=== PATIENT | male | born 1990 | race Caucasian/White ===

== ENCOUNTER 2016-06-28 17:15 | Inpatient (IN) | payer BC ==
[~2016-06-28] VITALS: Ht 188 cm; Wt 155.7 kg
[~2016-06-28 17:15] MED LIST: CPR500HP PO; IBUP-1428 PO
[2016-06-28] MEDS ORDERED: SODIUM CHLORIDE 0.9% 1000ML 500 ML IV STA (19:02)
[2016-06-28] MEDS ORDERED: SODIUM CHLORIDE 0.9% 1000ML 1,000 ML IV STA (19:02)
--- NOTE | 2016-06-28 19:09 | EMERGENCY ROOM VISIT NOTE ---
History Report prepared by Bi: Dread Gibson Under the Supervision of: Dr. Eric Ayala M.D. First contact with patient: 18:56 Chief Complaint: ABDOMINAL PAIN Stated Complaint: SEVERE STOMACH PAIN Nursing Triage Summary: c/o lower abd pain since Monday. denies n/v/d. Seen by PCP today. Colonoscopy Monday and told he has IBS History of Present Illness The patient is a 25 year old male who presents to the Emergency Room with complaints of persistent lower abdominal pain beginning 3 days ago. He rates his pain a 7/10 in severity and notes that movement and urination worsens his pain. He may have had a fever, but has not checked his temperature, and he denies having any nausea. The patient reports having a colonoscopy about 1 week ago and was diagnosed with IBS. He was seen by his PCP today who sent him over to the ER. He has a history of diverticulitis, and takes reflux medication. He denies having any past abdominal surgeries. Source of History: patient Onset: 3 days ago Position: abdomen (lower) Symptom Intensity: 7/10 in severity Quality: other (abdominal pain) Timing: other (persistent) Modifying Factors (Worsening): movement, urination Associated Symptoms: + fevers (subjective), No nausea Review of Systems See HPI for pertinent positives & negatives. A total of 10 systems reviewed and were otherwise negative. Past Medical & Surgical Medical Problems: (1) Diverticulitis (2) GERD (gastroesophageal reflux disease) Surgical Problems: (1) [place] teeth extracted Family History Diabetes mellitus Social History Smoking Status: Never Smoker Alcohol Use: occasionally Housing Status: lives with family Occupation Status: employed Current/Historical Medications Scheduled Dicyclomine Hcl (Dicyclomine Hcl), 10 MG PO QID Omeprazole (Prilosec), 20 MG PO DAILY Allergies Coded Allergies: Amoxicillin (Verified Allergy, Unknown, unknown, 05/29/15) Cephalosporins (Verified Allergy, Unknown, unknown, 05/29/15) Physical Exam Vital Signs Date Time Temp Pulse Resp B/P Pulse Ox O2 Delivery O2 Flow Rate FiO2 06/28/16 19:15 93 18 132/77 95 Room Air 06/28/16 17:34 36.8 96 18 141/82 96 Room Air Physical Exam GENERAL: Patient is in no acute distress. HEENT: No acute trauma, normocephalic atraumatic, mucous membranes moist, no nasal congestion, no scleral icterus. NECK: No stridor, no adenopathy, no meningismus, trachea is midline. LUNGS: Clear to auscultation bilaterally, no wheeze, no rhonchi, breath sounds equal. HEART: Without murmurs gallops or rubs, regular rate and rhythm. ABDOMEN: Soft; mildly diffusely tender, but mostly tender over the lower quadrants and over the bladder; bowel sounds positive, no hernias, no peritonitis. EXTREMITIES: No cyanosis or edema, full range of motion of all the joints without pain or difficulty, no signs for acute trauma. NEUROLOGIC: Oriented x 3, no acute motor or sensory deficits, no focal weakness. SKIN: No rash, no jaundice, no diaphoresis. Medical Decision & Procedures ER Provider Diagnostic Interpretation: Radiology results are stated below per my review and radiologist interpretation: CT ABD/PELVIS IV CONTRAST ONLY FINDINGS: Lower chest: The heart is normal in size and configuration, without pericardial effusion. The lung bases and pleural spaces are clear. Liver: There is mild hepatic steatosis. No focal masses are visualized. Gallbladder: Unremarkable. Spleen: The spleen is mildly enlarged measuring 14 cm. Pancreas: Unremarkable. Adrenal glands: Unremarkable. Kidneys: There is symmetric renal cortical enhancement. The kidneys are normal in size without hydronephrosis. Bowel: There are no transition zones to indicate bowel obstruction. There is mild sigmoid wall thickening. There is infiltration of the perisigmoid fat, likely secondary to diverticulitis. The appendix extends into this area of inflammation. The appendix is mildly thickened measuring 9 mm. I would favor this being a secondary phenomenon but clinical correlation in this regard is advocated. Peritoneum: There is no intraperitoneal free air or abdominal ascites. Vasculature: The abdominal aorta is normal in course and caliber. Adenopathy: None. Pelvic viscera: The bladder, and pelvic viscera are unremarkable. Skeletal structures: There is an L5-S1 disc osteophyte complex IMPRESSION: 1. Sigmoid wall thickening and infiltration of the perisigmoid fat. 2. Thick-walled appendix measuring 9 mm which extends into the area of mesenteric infiltration 3. Diagnostic considerations include diverticulitis with secondary involvement of the appendix versus acute appendicitis. Diverticulitis is favored, but close clinical follow-up will be necessary as acute appendicitis cannot be excluded. 4. Hepatic steatosis and mild splenomegaly 5. No evidence of bowel obstruction. No evidence of free air 6. No evidence of abscess Electronically signed by: Tc Shrestha M.D. 06/28/2016 8:26 PM Dictated Date/Time: 06/28/2016 8:16 PM Laboratory Results 06/28/16 19:10 Red Blood Count 5.58, Mean Corpuscular Volume 86.0, Mean Corpuscular Hemoglobin 30.1, Mean Corpuscular Hemoglobin Concent 35.0, Mean Platelet Volume 11.9, Neutrophils (%) (Auto) 67.1, Lymphocytes (%) (Auto) 22.2, Monocytes (%) (Auto) 9.2, Eosinophils (%) (Auto) 1.3, Basophils (%) (Auto) 0.0, Neutrophils # (Auto) 6.98, Lymphocytes # (Auto) 2.31, Monocytes # (Auto) 0.96, Eosinophils # (Auto) 0.14, Basophils # (Auto) 0.00 06/28/16 19:10 Test 06/28/16 18:58 06/28/16 19:10 Urine Color DK YELLOW Urine Appearance CLEAR (CLEAR) Urine pH 6.0 (4.5-7.5) Urine Specific [place] 1.015 (1.000-1.030) Urine Protein NEG (NEG) Urine Glucose (UA) NEG (NEG) Urine Ketones NEG (NEG) Urine Occult Blood TRACE (NEG) Urine Nitrite NEG (NEG) Urine Bilirubin NEG (NEG) Urine Urobilinogen NEG (NEG) Urine Leukocyte Esterase NEG (NEG) Urine WBC (Auto) 1-5 /hpf (0-5) Urine RBC (Auto) 0-4 /hpf (0-4) Urine Hyaline Casts (Auto) 0 /lpf (0-5) Urine Epithelial Cells (Auto) 5-10 /lpf (0-5) Urine Bacteria (Auto) NEG (NEG) White Blood Count 10.41 K/uL (4.8-10.8) Red Blood Count 5.58 M/uL (4.7-6.1) Hemoglobin 16.8 g/dL (14.0-18.0) Hematocrit 48.0 % (42-52) Mean Corpuscular Volume 86.0 fL (80-100) Mean Corpuscular Hemoglobin 30.1 pg (25-34) Mean Corpuscular Hemoglobin Concent 35.0 g/dl (32-36) Platelet Count 166 K/uL (130-400) Mean Platelet Volume 11.9 fL (7.4-10.4) Neutrophils (%) (Auto) 67.1 % Lymphocytes (%) (Auto) 22.2 % Monocytes (%) (Auto) 9.2 % Eosinophils (%) (Auto) 1.3 % Basophils (%) (Auto) 0.0 % Neutrophils # (Auto) 6.98 K/uL (1.4-6.5) Lymphocytes # (Auto) 2.31 K/uL (1.2-3.4) Monocytes # (Auto) 0.96 K/uL (0.11-0.59) Eosinophils # (Auto) 0.14 K/uL (0-0.5) Basophils # (Auto) 0.00 K/uL (0-0.2) RDW Standard Deviation 40.4 fL (36.4-46.3) RDW Coefficient of Variation 12.9 % (11.5-14.5) Immature Granulocyte % (Auto) 0.2 % Immature Granulocyte # (Auto) 0.02 K/uL (0.00-0.02) Anion Gap 10.0 mmol/L (3-11) Est Creatinine Clear Calc Drug Dose 186.4 ml/min Estimated GFR () 128.3 Estimated GFR (Non- 110.7 BUN/Creatinine Ratio 9.3 (10-20) Calcium Level 9.2 mg/dl (8.5-10.1) Total Bilirubin 3.7 mg/dl (0.2-1) Aspartate Amino Transf (AST/SGOT) 18 U/L (15-37) Alanine Aminotransferase (ALT/SGPT) 48 U/L (12-78) Alkaline Phosphatase 95 U/L (45-117) Total Protein 8.1 gm/dl (6.4-8.2) Albumin 3.9 gm/dl (3.4-5.0) Globulin 4.2 gm/dl (2.5-4.0) Albumin/Globulin Ratio 0.9 (0.9-2) Lipase 101 U/L (73-393) Laboratory results reviewed by me. Medications Administered Medications (Trade) Dose Ordered Sig/Lucila Route Start Time Stop Time Status Last Admin Dose Admin Sodium Chloride 500 ml @ 999 mls/hr Q31M STAT IV 06/28/16 19:02 06/28/16 19:32 DC 06/28/16 19:15 999 MLS/HR Sodium Chloride (Nss 1000ml) 1,000 ml @ 200 mls/hr Q5H STAT IV 06/28/16 19:02 06/28/16 22:20 DC 06/28/16 19:15 200 MLS/HR ED Course 1857: The patient was evaluated in room A12B. A complete history and physical exam was performed. 1901: Ordered NSS 1,000 ml @ 200 mls/hr IV, and NSS 500 ml @ 999 mls/hr IV. 2111: Discussed the patient's case Dr. Way. The patient will be evaluated for further management. Medical Decision Differentials include colonic perforation, diverticulitis, colitis, musculoskeletal pain, UTI, appendicitis, pancreatitis, and hernia. There is no leukocytosis or concerning anemia. No significant electrolyte abnormality, kidney failure, hepatitis or pancreatitis. There was an isolated elevation of the bilirubin of unknown significance. Urinalysis does not show evidence for infection. Abdominal and pelvis CT shows an enlarged appendix. There is also some diverticulitis. It was not clear whether the colonic inflammation was from the appendix or if the appendix inflammation was from the colon. Surgical consult was advised. The patient received IV saline, he did not want anything for pain. I talked with him about my findings, I talked with case management. I did consult the on -call general surgeon. The patient was seen by the surgeon here in the emergency room. The patient will be brought into the hospital for further care. Consults Time Called: 2109 Consulting Physician: Dr. Rayna Be Returned Call: 2111 Discussed the patient's case Dr. Way. The patient will be evaluated for further management. Impression Primary Impression: Lower abdominal pain Additional Impression: Abnormal computed tomography of abdomen and pelvis Scribe Attestation The scribe's documentation has been prepared under my direction and personally reviewed by me in its entirety. I confirm that the note above accurately reflects all work, treatment, procedures, and medical decision making performed by me. Departure Information Dispostion Being Evaluated By Hospitalist Darwin Alcaraz M.D. (PCP) Patient Instructions My [facility] Problem Qualifiers
[2016-06-28] MEDS ORDERED: OPTIRAY 320 IV PRN (19:15)
[2016-06-28 19:29] LABS: COMPLETE YES; EOS % 1.3 %; IG% 0.2 %; LYMPH % 22.2 %; LYMPH ABS # 2.31 K/uL (1.2-3.4); MEAN CORPUSCULAR HEMOGLOBIN 30.1 pg (25-34); MEAN PLATELET VOLUME 11.9 fL (7.4-10.4); MONO % 9.2 %; NEUT % 67.1 %; PLATELET COUNT 166 K/uL (130-400); RED BLOOD COUNT 5.58 M/uL (4.7-6.1); WHITE BLOOD COUNT 10.41 K/uL (4.8-10.8)
[2016-06-28 19:33] LABS: URINE APPEARANCE CLEAR (CLEAR); URINE BILIRUBIN NEG (NEG); URINE COLOR DK YELLOW; URINE NITRITE NEG (NEG); URINE SPECIFIC GRAVITY 1.015 (1.000-1.030); UROBILINOGEN NEG (NEG); ZZUR CULT IF INDIC CLEAN CATCH NO
[2016-06-28 19:37] LABS: MANUAL MICROSCOPIC REQUIRED? NO; REVIEW REQ? NO
[2016-06-28 19:52] LABS: BUN/CREATININE RATIO 9.3 (10-20); CALCIUM 9.2 mg/dl (8.5-10.1); CREATININE 0.94 mg/dl (0.60-1.40); POTASSIUM 3.7 mmol/L (3.5-5.1)
[2016-06-28 19:54] LABS: ALB/GLOB RATIO 0.9 (0.9-2)
[2016-06-28] MEDS ORDERED: DICY10CA12 PO (20:23)
--- NOTE | 2016-06-28 20:27 | DIAGNOSTIC IMAGING REPORT ---
CT ABD/PELVIS IV CONTRAST ONLY CLINICAL HISTORY: Dominant pain. Possible diverticulitis. Recent colonoscopy. COMPARISON STUDY: 01/12/2016 TECHNIQUE: Following the IV administration of 118 mL of Optiray-320, CT scan of the abdomen and pelvis was performed from the lung bases to the proximal femurs. Images are reviewed in the axial, sagittal, and coronal planes. IV contrast was administered without complication. CT DOSE: 2267.05 mGy.cm FINDINGS: Lower chest: The heart is normal in size and configuration, without pericardial effusion. The lung bases and pleural spaces are clear. Liver: There is mild hepatic steatosis. No focal masses are visualized. Gallbladder: Unremarkable. Spleen: The spleen is mildly enlarged measuring 14 cm. Pancreas: Unremarkable. Adrenal glands: Unremarkable. Kidneys: There is symmetric renal cortical enhancement. The kidneys are normal in size without hydronephrosis. Bowel: There are no transition zones to indicate bowel obstruction. There is mild sigmoid wall thickening. There is infiltration of the perisigmoid fat, likely secondary to diverticulitis. The appendix extends into this area of inflammation. The appendix is mildly thickened measuring 9 mm. I would favor this being a secondary phenomenon but clinical correlation in this regard is advocated. Peritoneum: There is no intraperitoneal free air or abdominal ascites. Vasculature: The abdominal aorta is normal in course and caliber. Adenopathy: None. Pelvic viscera: The bladder, and pelvic viscera are unremarkable. Skeletal structures: There is an L5-S1 disc osteophyte complex IMPRESSION: 1. Sigmoid wall thickening and infiltration of the perisigmoid fat. 2. Thick-walled appendix measuring 9 mm which extends into the area of mesenteric infiltration 3. Diagnostic considerations include diverticulitis with secondary involvement of the appendix versus acute appendicitis. Diverticulitis is favored, but close clinical follow-up will be necessary as acute appendicitis cannot be excluded. 4. Hepatic steatosis and mild splenomegaly 5. No evidence of bowel obstruction. No evidence of free air 6. No evidence of abscess Electronically signed by: Tc Shrestha M.D. 06/28/2016 8:26 PM Dictated Date/Time: 06/28/2016 8:16 PM
--- NOTE | 2016-06-28 21:05 | History and Physical ---
History & Physical Date & Time of Service: Jun 28, 2016 at 20:58 Chief Complaint: Severe Stomach Pain Primary Care Physician: Darwin Mark M.D. History of Present Illness Source: patient, partner This is a 25 year old male with complaints of persistent lower abdominal pain beginning 3 days ago currently on cipro after a recent colonoscopy showing inflammation. He rates his pain a 7/10 in severity and notes that movement and urination worsens his pain. He has had subjective fever. He denies having any nausea or vomiting. His pain has not improved on the po antibiotic. Past Medical/Surgical History Medical Problems: (1) Diverticulitis Status: Resolved (2) GERD (gastroesophageal reflux disease) Status: Chronic Surgical Problems: (1) [place] teeth extracted Status: Resolved Family History Diabetes mellitus DM Social History Smoking Status: Never Smoker Smokeless Tobacco Use: No Alcohol Use: socially Drug Use: none Marital Status: Housing status: lives with family Occupational Status: employed Multi-Drug Resistant Organisms History of MDRO: No Allergies Coded Allergies: Amoxicillin (Verified Allergy, Unknown, unknown, 05/29/15) Cephalosporins (Verified Allergy, Unknown, unknown, 05/29/15) Home Medications Scheduled Dicyclomine Hcl (Dicyclomine Hcl), 10 MG PO QID Omeprazole (Prilosec), 20 MG PO DAILY Physical Exam Vital Signs Date Time Temp Pulse Resp B/P Pulse Ox O2 Delivery O2 Flow Rate FiO2 06/28/16 19:15 93 18 132/77 95 Room Air 06/28/16 17:34 36.8 96 18 141/82 96 Room Air General Appearance: WD/WN, no apparent distress Head: normocephalic, atraumatic Eyes: normal inspection, PERRL, EOMI, sclerae normal ENT: normal ENT inspection Neck: supple, no adenopathy, trachea midline Respiratory/Chest: chest non-tender, lungs clear Cardiovascular: regular rate, rhythm, no gallop, no murmur Abdomen/GI: normal bowel sounds, soft, no organomegaly, + tenderness (LLQ/ suprapubic) Genitourinary - Male: normal male genitalia Back: no CVA tenderness, normal range of motion Extremities/Musculoskelatal: no calf tenderness, no pedal edema Neurologic/Psych: no motor/sensory deficits, alert, normal mood/affect, oriented x 3 Skin: normal color, warm/dry Lymphatic: no adenopathy Diagnostics Laboratory Results Results Past 24 Hours Test 06/28/16 18:58 06/28/16 19:10 Range/Units Urine Color DK YELLOW Urine Appearance CLEAR CLEAR Urine pH 6.0 4.5-7.5 Urine Specific [place] 1.015 1.000-1.030 Urine Protein NEG NEG Urine Glucose (UA) NEG NEG Urine Ketones NEG NEG Urine Occult Blood TRACE NEG Urine Nitrite NEG NEG Urine Bilirubin NEG NEG Urine Urobilinogen NEG NEG Urine Leukocyte Esterase NEG NEG Urine WBC (Auto) 1-5 0-5 /hpf Urine RBC (Auto) 0-4 0-4 /hpf Urine Hyaline Casts (Auto) 0 0-5 /lpf Urine Epithelial Cells (Auto) 5-10 0-5 /lpf Urine Bacteria (Auto) NEG NEG White Blood Count 10.41 4.8-10.8 K/uL Red Blood Count 5.58 4.7-6.1 M/uL Hemoglobin 16.8 14.0-18.0 g/dL Hematocrit 48.0 42-52 % Mean Corpuscular Volume 86.0 80-100 fL Mean Corpuscular Hemoglobin 30.1 25-34 pg Mean Corpuscular Hemoglobin Concent 35.0 32-36 g/dl Platelet Count 166 130-400 K/uL Mean Platelet Volume 11.9 7.4-10.4 fL Neutrophils (%) (Auto) 67.1 % Lymphocytes (%) (Auto) 22.2 % Monocytes (%) (Auto) 9.2 % Eosinophils (%) (Auto) 1.3 % Basophils (%) (Auto) 0.0 % Neutrophils # (Auto) 6.98 1.4-6.5 K/uL Lymphocytes # (Auto) 2.31 1.2-3.4 K/uL Monocytes # (Auto) 0.96 0.11-0.59 K/uL Eosinophils # (Auto) 0.14 0-0.5 K/uL Basophils # (Auto) 0.00 0-0.2 K/uL RDW Standard Deviation 40.4 36.4-46.3 fL RDW Coefficient of Variation 12.9 11.5-14.5 % Immature Granulocyte % (Auto) 0.2 % Immature Granulocyte # (Auto) 0.02 0.00-0.02 K/uL Sodium Level 140 136-145 mmol/L Potassium Level 3.7 3.5-5.1 mmol/L Chloride Level 104 98-107 mmol/L Carbon Dioxide Level 26 21-32 mmol/L Anion Gap 10.0 3-11 mmol/L Blood Urea Nitrogen 9 7-18 mg/dl Creatinine 0.94 0.60-1.40 mg/dl Est Creatinine Clear Calc Drug Dose 186.4 ml/min Estimated GFR () 128.3 Estimated GFR (Non- 110.7 BUN/Creatinine Ratio 9.3 10-20 Random Glucose 87 70-99 mg/dl Calcium Level 9.2 8.5-10.1 mg/dl Total Bilirubin 3.7 0.2-1 mg/dl Aspartate Amino Transf (AST/SGOT) 18 15-37 U/L Alanine Aminotransferase (ALT/SGPT) 48 12-78 U/L Alkaline Phosphatase 95 45-117 U/L Total Protein 8.1 6.4-8.2 gm/dl Albumin 3.9 3.4-5.0 gm/dl Globulin 4.2 2.5-4.0 gm/dl Albumin/Globulin Ratio 0.9 0.9-2 Lipase 101 73-393 U/L Diagnostic Radiology CT ABD/PELVIS IV CONTRAST ONLY CLINICAL HISTORY: Dominant pain. Possible diverticulitis. Recent colonoscopy. COMPARISON STUDY: 01/12/2016 TECHNIQUE: Following the IV administration of 118 mL of Optiray-320, CT scan of the abdomen and pelvis was performed from the lung bases to the proximal femurs. Images are reviewed in the axial, sagittal, and coronal planes. IV contrast was administered without complication. CT DOSE: 2267.05 mGy.cm FINDINGS: Lower chest: The heart is normal in size and configuration, without pericardial effusion. The lung bases and pleural spaces are clear. Liver: There is mild hepatic steatosis. No focal masses are visualized. Gallbladder: Unremarkable. Spleen: The spleen is mildly enlarged measuring 14 cm. Pancreas: Unremarkable. Adrenal glands: Unremarkable. Kidneys: There is symmetric renal cortical enhancement. The kidneys are normal in size without hydronephrosis. Bowel: There are no transition zones to indicate bowel obstruction. There is mild sigmoid wall thickening. There is infiltration of the perisigmoid fat, likely secondary to diverticulitis. The appendix extends into this area of inflammation. The appendix is mildly thickened measuring 9 mm. I would favor this being a secondary phenomenon but clinical correlation in this regard is advocated. Peritoneum: There is no intraperitoneal free air or abdominal ascites. Vasculature: The abdominal aorta is normal in course and caliber. Adenopathy: None. Pelvic viscera: The bladder, and pelvic viscera are unremarkable. Skeletal structures: There is an L5-S1 disc osteophyte complex IMPRESSION: 1. Sigmoid wall thickening and infiltration of the perisigmoid fat. 2. Thick-walled appendix measuring 9 mm which extends into the area of mesenteric infiltration 3. Diagnostic considerations include diverticulitis with secondary involvement of the appendix versus acute appendicitis. Diverticulitis is favored, but close clinical follow-up will be necessary as acute appendicitis cannot be excluded. 4. Hepatic steatosis and mild splenomegaly 5. No evidence of bowel obstruction. No evidence of free air 6. No evidence of abscess Impression Assessment and Plan Acute diverticulitis with low possibility of early appendicitis -IV cipro/flagyl -NPO -IVF -PPI for GERD -observation ASA Classification: ASA Class II Level of Care Med/Surg Resuscitation Status FULL RESUSCITATION VTE Prophylaxis VTE Risk Assessment Done? Y/N: Yes Risk Level: Low Given or contraindicated: SCD's
[2016-06-28] MEDS ORDERED: ACETAMINOPHEN 325 MG TAB PO PRN (21:15)
[2016-06-28] MEDS ORDERED: MoRPHine SULFATE 2 MG/ML CARP IV PRN (21:15)
[2016-06-28] MEDS ORDERED: ONDANSETRON INJ 2 MG/ML 2 ML VIAL IV PRN (21:15)
[2016-06-28] MEDS ORDERED: MoRPHine SULFATE 4 MG/ML 1 ML CARP\\VIAL IV PRN (21:30)
[2016-06-28 22:14] VITALS: BP 136/77; PULSE 88; TEMP 36.5; O2SAT 96; Ht 188 cm; Wt 155.7 kg
[2016-06-28] MEDS: LACTATED RINGER'S 1000ML 1,000 ML IV SCH (22:33)
[2016-06-28] MEDS ORDERED: OMEP20CA9 PO (22:50)
[2016-06-28 23:20] VITALS: BP 107/66; PULSE 89; TEMP 37.1; O2SAT 96
[2016-06-28] MEDS: METRONIDAZOLE / NSS 500 MG in PREMIXED NSS 100 ML IV SCH (23:28)
[2016-06-29] MEDS: CIPROFLOXACIN / D5W 400 MG in PREMIXED IN D5W 200 ML IV SCH ×3 (01:29→23:39)
[2016-06-29] MEDS: METRONIDAZOLE / NSS 500 MG in PREMIXED NSS 100 ML IV SCH ×3 (05:24→21:52)
[2016-06-29] MEDS: LACTATED RINGER'S 1000ML 1,000 ML IV SCH ×3 (05:25→21:56)
[2016-06-29 06:32] LABS: BASO % 0.1 %; BASO ABS # 0.01 K/uL (0-0.2); COMPLETE YES; EOS % 2.1 %; HEMATOCRIT 44.3 % (42-52); IG% 0.2 %; LYMPH % 22.7 %; LYMPH ABS # 1.87 K/uL (1.2-3.4); MEAN CELL VOLUME 85.4 fL (80-100); MEAN CORPUSCULAR HEMOGLOBIN 28.5 pg (25-34); MEAN CORPUSCULAR HGB CONC 33.4 g/dl (32-36); MEAN PLATELET VOLUME 11.3 fL (7.4-10.4); NEUT % 65.9 %; PLATELET COUNT 164 K/uL (130-400); RED BLOOD COUNT 5.19 M/uL (4.7-6.1); WHITE BLOOD COUNT 8.25 K/uL (4.8-10.8)
--- NOTE | 2016-06-29 07:06 | Surgery Progress Note ---
Surgery Progress Note Date of Service Jun 29, 2016. Subjective Post OP Day: + complaints (apin better), + diet (NPO), + feeling well, + flatus, No nausea, No vomiting Objective Vital Signs: Date Time Temp Pulse Resp B/P Pulse Ox O2 Delivery O2 Flow Rate FiO2 06/28/16 23:25 Room Air 06/28/16 23:20 37.1 89 16 107/66 96 Room Air 06/28/16 22:14 36.5 88 16 136/77 96 Room Air 06/28/16 21:16 90 16 134/77 95 Room Air 06/28/16 19:15 93 18 132/77 95 Room Air 06/28/16 17:34 36.8 96 18 141/82 96 Room Air General Appearance: WD/WN, no apparent distress Head: normocephalic, atraumatic Neck: supple Respiratory/Chest: chest non-tender Cardiovascular: regular rate, rhythm, no gallop, no murmur Abdomen: normal bowel sounds, non distended, soft, + tenderness (minimal) Extremities: non-tender, no pedal edema Laboratory Results: Results Past 24 Hours Test 06/28/16 18:58 06/28/16 19:10 06/29/16 06:16 Range/Units Urine Color DK YELLOW Urine Appearance CLEAR CLEAR Urine pH 6.0 4.5-7.5 Urine Specific [place] 1.015 1.000-1.030 Urine Protein NEG NEG Urine Glucose (UA) NEG NEG Urine Ketones NEG NEG Urine Occult Blood TRACE NEG Urine Nitrite NEG NEG Urine Bilirubin NEG NEG Urine Urobilinogen NEG NEG Urine Leukocyte Esterase NEG NEG Urine WBC (Auto) 1-5 0-5 /hpf Urine RBC (Auto) 0-4 0-4 /hpf Urine Hyaline Casts (Auto) 0 0-5 /lpf Urine Epithelial Cells (Auto) 5-10 0-5 /lpf Urine Bacteria (Auto) NEG NEG White Blood Count 10.41 8.25 4.8-10.8 K/uL Red Blood Count 5.58 5.19 4.7-6.1 M/uL Hemoglobin 16.8 14.8 14.0-18.0 g/dL Hematocrit 48.0 44.3 42-52 % Mean Corpuscular Volume 86.0 85.4 80-100 fL Mean Corpuscular Hemoglobin 30.1 28.5 25-34 pg Mean Corpuscular Hemoglobin Concent 35.0 33.4 32-36 g/dl Platelet Count 166 164 130-400 K/uL Mean Platelet Volume 11.9 11.3 7.4-10.4 fL Neutrophils (%) (Auto) 67.1 65.9 % Lymphocytes (%) (Auto) 22.2 22.7 % Monocytes (%) (Auto) 9.2 9.0 % Eosinophils (%) (Auto) 1.3 2.1 % Basophils (%) (Auto) 0.0 0.1 % Neutrophils # (Auto) 6.98 5.44 1.4-6.5 K/uL Lymphocytes # (Auto) 2.31 1.87 1.2-3.4 K/uL Monocytes # (Auto) 0.96 0.74 0.11-0.59 K/uL Eosinophils # (Auto) 0.14 0.17 0-0.5 K/uL Basophils # (Auto) 0.00 0.01 0-0.2 K/uL RDW Standard Deviation 40.4 39.8 36.4-46.3 fL RDW Coefficient of Variation 12.9 12.8 11.5-14.5 % Immature Granulocyte % (Auto) 0.2 0.2 % Immature Granulocyte # (Auto) 0.02 0.02 0.00-0.02 K/uL Sodium Level 140 136-145 mmol/L Potassium Level 3.7 3.5-5.1 mmol/L Chloride Level 104 98-107 mmol/L Carbon Dioxide Level 26 21-32 mmol/L Anion Gap 10.0 3-11 mmol/L Blood Urea Nitrogen 9 7-18 mg/dl Creatinine 0.94 0.60-1.40 mg/dl Est Creatinine Clear Calc Drug Dose 186.4 ml/min Estimated GFR () 128.3 Estimated GFR (Non- 110.7 BUN/Creatinine Ratio 9.3 10-20 Random Glucose 87 70-99 mg/dl Calcium Level 9.2 8.5-10.1 mg/dl Total Bilirubin 3.7 0.2-1 mg/dl Aspartate Amino Transf (AST/SGOT) 18 15-37 U/L Alanine Aminotransferase (ALT/SGPT) 48 12-78 U/L Alkaline Phosphatase 95 45-117 U/L Total Protein 8.1 6.4-8.2 gm/dl Albumin 3.9 3.4-5.0 gm/dl Globulin 4.2 2.5-4.0 gm/dl Albumin/Globulin Ratio 0.9 0.9-2 Lipase 101 73-393 U/L Assessment & Plan Diverticulitis; no appendicitis -con't IV abx -begin diet -possibly home in AM
[2016-06-29 07:39] VITALS: BP 110/65; PULSE 85; TEMP 36.9; O2SAT 95
[2016-06-29] MEDS: PANTOprazole INJ 40 MG in SYRINGE 0 ML IV SCH (10:42)
[2016-06-29 15:45] VITALS: BP 130/78; PULSE 83; TEMP 36.5; O2SAT 95
[2016-06-29 22:49] VITALS: BP 146/82; PULSE 86; TEMP 36.6; O2SAT 96
[2016-06-30] MEDS: LACTATED RINGER'S 1000ML 1,000 ML IV SCH (05:47)
[2016-06-30] MEDS: METRONIDAZOLE / NSS 500 MG in PREMIXED NSS 100 ML IV SCH (05:47)
[2016-06-30 07:25] VITALS: BP 110/66; PULSE 73; TEMP 36.5; O2SAT 94
[2016-06-30 07:30] VITALS: O2SAT 92
[2016-06-30] MEDS: PANTOprazole INJ 40 MG in SYRINGE 0 ML IV SCH (10:40)
[2016-06-30 10:51] VITALS: BP 110/66; PULSE 73; TEMP 36.5; O2SAT 92
[2016-06-30] MEDS ORDERED: OXYC-57 PO (11:22)
[2016-06-30 11:25] VITALS: BP 143/76; PULSE 78; TEMP 36.6; O2SAT 93
--- NOTE | 2016-06-30 11:27 | Discharge Instructions ---
Discharge Instructions Admission Reason for Admission: Diverticulitis Discharge Discharge Diagnosis / Problem: Diverticulitis Discharge Goals Goal(s): Decrease discomfort Activity Recommendations Activity Limitations: resume your previous activity Lifting Limitations: none Exercise/Sports Limitations: as tolerated NO driving while taking narcotic pain medication . Instructions / Follow-Up Instructions / Follow-Up Follow-up with Dr. Way in Surgical office in 1-2 weeks Please call [phone] to make an appointment Diet as tolerated IF you develop similar abdominal pain, nausea, vomiting, fever, chills please call office or if severe go to emergency room for further evaluation. Current Hospital Diet Patient's current hospital diet: Regular Diet Discharge Diet Recommended Diet: Regular Diet Pending Studies Studies pending at discharge: no Medical Emergencies . Who to Call and When: Medical Emergencies: If at any time you feel your situation is an emergency, please call 911 immediately. . Non-Emergent Contact Non-Emergency issues call your: Primary Care Provider, Surgeon Call Non-Emergent contact if: temperature is above 101.5, your pain is not controlled, your pain is worsening . "Provider Documentation" section prepared by Gilma Strickland. VTE Core Measure Inpt VTE Proph given/why not?: SCD's [place] Drug Monitoring Program Search Results: patient reviewed within database, no issues identified
[2016-06-30] MEDS ORDERED: CIPR1TAB10 PO (11:49)
[2016-06-30] MEDS ORDERED: METR500T PO (11:49)
--- NOTE | 2016-06-30 14:46 | Surgery Progress Note ---
Surgery Progress Note Date of Service Jun 30, 2016. LATE ENTRY: SAW PATIENT THIS AM AT 10:30 Subjective Post OP Day: HD # 2 + ambulating, + diet (tolerating full liquids), + feeling well, + flatus, + pain controlled, No SOB, No bowel movement, No chest pain, No complaints, No nausea, No vomiting Objective Vital Signs: Date Time Temp Pulse Resp B/P Pulse Ox O2 Delivery O2 Flow Rate FiO2 06/30/16 11:25 36.6 78 16 143/76 93 Room Air 06/30/16 10:51 36.5 73 15 92 Room Air 06/30/16 09:54 Room Air 06/30/16 07:30 92 Room Air 06/30/16 07:25 36.5 73 15 110/66 94 Room Air 06/29/16 23:44 Room Air 06/29/16 22:49 36.6 86 16 146/82 96 Room Air 06/29/16 15:45 36.5 83 18 130/78 95 Room Air 06/29/16 15:30 Room Air General Appearance: WD/WN, no apparent distress Head: normocephalic, atraumatic Respiratory/Chest: no respiratory distress, no accessory muscle use Abdomen: non tender, non distended, soft Extremities: normal range of motion Assessment & Plan Acute Diverticulitis - AVSS - Tolerating full liquids - pain minimal , has not required or taken any narcotics - no nausea or vomiting PLAN: Advance diet to regular diet Discharge today Rx for Cipro/Flagyl Rx for Percocet prn Return to office in 1-[address]
--- NOTE | 2016-06-30 15:51 | Discharge Summary ---
Discharge Summary Dates Admission Date / Time: Jun 28, 2016 at 21:09 Discharge Date: Jun 30, 2016 Dispostion / Condition Discharge Disposition: Home Condition at Discharge: Good Principal Diagnosis (1) Diverticulitis Consultations / Procedures Consultations: none Procedures: none Pending Studies / Follow-Up NONE Medication Reconciliation New Medications: Ciprofloxacin Hcl (Cipro) 500 Mg Tab 500 MG PO BID, #20 TAB Metronidazole (Flagyl) 500 Mg Tab 500 MG PO TID, #30 TAB Oxycodone/Acetaminophen 5MG/325MG (Percocet 5MG/325MG) Tab 1 TABLET PO Q4H PRN for Pain, #18 TAB Continued Medications: Dicyclomine Hcl (Dicyclomine Hcl) 10 Mg Cap 10 MG PO QID, #30 Omeprazole (Prilosec) 20 Mg Cap 20 MG PO DAILY, CAP Admission HPI Per the Admitting provider: This is a 25 year old male with complaints of persistent lower abdominal pain beginning 3 days ago currently on cipro after a recent colonoscopy showing inflammation. He rates his pain a 7/10 in severity and notes that movement and urination worsens his pain. He has had subjective fever. He denies having any nausea or vomiting. His pain has not improved on the po antibiotic. Admission Exam Per the Admitting provider: General Appearance: WD/WN, no apparent distress Head: normocephalic, atraumatic Eyes: normal inspection, PERRL, EOMI, sclerae normal ENT: normal ENT inspection Neck: supple, no adenopathy, trachea midline Respiratory/Chest: chest non-tender, lungs clear Cardiovascular: regular rate, rhythm, no gallop, no murmur Abdomen/GI: normal bowel sounds, soft, no organomegaly, + tenderness (LLQ/ suprapubic) Genitourinary - Male: normal male genitalia Back: no CVA tenderness, normal range of motion Extremities/Musculoskelatal: no calf tenderness, no pedal edema Neurologic/Psych: no motor/sensory deficits, alert, normal mood/affect, oriented x 3 Skin: normal color, warm/dry Lymphatic: no adenopathy Hospital Course (1) Diverticulitis Patient was admitted for observation and started on IV fluids, IV pain management, IV antibiotics being Cipro/Flagyl as well as IV zofran as needed. Patient's pain was significantly improved and was started on clear liquids on HD # 1. Tolerated clear liquids fine and diet was advance to full liquids for dinner. Pain very minimal over the course of his two day hospital stay. Did not require any narcotic pain medication. No nausea, vomiting, abdominal pain, change in bowel habits, fevers, or chills. He progressed and was discharged on HD # 2. Discharged on PO cipro/flagyl and given PO Percocet prn pain. Overall , hospital course was uneventful. Total Time Total Time Spent (min): 30 Total Time Includes: examination of the patient, discharge planning, medication reconciliation Discharge Instructions as given to patient Copies To Primary Care Provider: Darwin Mark M.D.. Problem Qualifiers (1) Diverticulitis: Diverticulitis site: large intestine Diverticulitis bleeding: without bleeding Diverticulitis complication: without perforation or abscess Qualified Codes: K57.32 - Diverticulitis of large intestine without perforation or abscess without bleeding
== END 2016-06-30 12:43 | disposition home or self-care (01) | DRG 392 ==
LOC: ENRESERVTM → ENRESERVDT → C.EDB 17:16 → C.MSN 21:09
PROVIDERS: ADMIT Surgery; ATTEND Surgery
DX: K57.32 Diverticulitis of large intestine without perforation or abscess without bleeding (principal); K58.9 Irritable bowel syndrome, unspecified; K21.9 Gastro-esophageal reflux disease without esophagitis; Z79.899 Other long term (current) drug therapy

== ENCOUNTER 2016-09-21 01:26 | Emergency (ER) | payer BC ==
[~2016-09-21] VITALS: Ht 188 cm; Wt 157.7 kg
[~2016-09-21 01:26] MED LIST changes: +CIPR1TAB10 PO; -CPR500HP PO; +DICY10CA12 PO; -IBUP-1428 PO; +OMEP20CA9 PO; +OXYC-57 PO
[2016-09-21 01:32] VITALS: TEMP 36.5; Ht 188 cm; Wt 157.7 kg
[2016-09-21] MEDS ORDERED: KETOROLAC TROMETHAMINE 30 MG/ML VIAL IV STA (01:46)
[2016-09-21] MEDS ORDERED: INDO50CA97 PO (01:59)
[2016-09-21] MEDS ORDERED: SODIUM CHLORIDE 0.9% 1000ML 1,000 ML IV ONE (02:00)
[2016-09-21] MEDS ORDERED: DEXAMETHASONE SOD INJ 10 MG/ML VIAL IV ONE (02:00)
[2016-09-21 02:07] LABS: BASO % 0.2 %; BASO ABS # 0.01 K/uL (0-0.2); COMPLETE YES; HEMATOCRIT 46.5 % (42-52); IG% 0.3 %; LYMPH % 39.8 %; LYMPH ABS # 2.52 K/uL (1.2-3.4); MEAN CORPUSCULAR HEMOGLOBIN 29.6 pg (25-34); MEAN CORPUSCULAR HGB CONC 34.4 g/dl (32-36); MEAN PLATELET VOLUME 11.5 fL (7.4-10.4); MONO % 8.8 %; NEUT % 47.9 %; PLATELET COUNT 157 K/uL (130-400); RED BLOOD COUNT 5.41 M/uL (4.7-6.1); WHITE BLOOD COUNT 6.33 K/uL (4.8-10.8)
[2016-09-21 02:27] LABS: ALT/SGPT 57 U/L (12-78); AST/SGOT 26 U/L (15-37); BLOOD UREA NITROGEN 13 mg/dl (7-18); BUN/CREATININE RATIO 15.1 (10-20); CALCIUM 8.5 mg/dl (8.5-10.1); CARBON DIOXIDE 28 mmol/L (21-32); CHLORIDE 108 mmol/L (98-107); CREATININE 0.89 mg/dl (0.60-1.40); GLUCOSE 99 mg/dl (70-99); POTASSIUM 3.7 mmol/L (3.5-5.1); SODIUM 144 mmol/L (136-145); URIC ACID 9.5 mg/dl (2.6-7.2)
[2016-09-21 02:30] LABS: ALB/GLOB RATIO 1.1 (0.9-2); ALKALINE PHOSPHATASE 97 U/L (45-117); C-REACTIVE PROTEIN < 0.29 mg/dl (0-0.29)
[2016-09-21 02:55] LABS: LYME DISEASE AB IGG NEG (NEG); LYME DISEASE AB IGM NEG (NEG)
[2016-09-21] MEDS ORDERED: PRED50TA PO (03:26)
[2016-09-21 03:32] VITALS: BP 137/82; PULSE 70; O2SAT 97
--- NOTE | 2016-09-21 05:33 | EMERGENCY ROOM VISIT NOTE ---
History First contact with patient: 01:37 Chief Complaint: ELBOW PAIN/INJURY Stated Complaint: RIGHT ELBOW PAIN History of Present Illness The patient is a 25 year old male who presents to the Emergency Room with complaints of pain in his right elbow that began worsening over the past one day. The patient has a history of gout, and started with gout symptoms 3 days ago in his ankles. He started on indomethacin, which did improve his ankle discomfort. He now has pain of his right elbow which is different from normal. He has had gout in his left elbow. He states that his discomfort worsens with movement. He has not had injury or trauma to otherwise explain his symptoms. He has not had fever or chills. No numbness or paresthesias. He rates his discomfort an 8/10. It worsens with movement. Review of Systems More than 10 systems were reviewed and otherwise negative with the exception of history of present illness. Past Medical/Surgical History Medical Problems: (1) Diverticulitis (2) GERD (gastroesophageal reflux disease) Surgical Problems: (1) [place] teeth extracted Family History Diabetes mellitus Social History Smoking Status: Never Smoker Alcohol Use: occasionally Drug Use: none Marital Status: Housing Status: lives with family Occupation Status: employed Current/Historical Medications Scheduled Dicyclomine Hcl (Dicyclomine Hcl), 10 MG PO QID Omeprazole (Prilosec), 20 MG PO DAILY Prednisone (Prednisone), 50 MG PO DAILY Scheduled PRN Indomethacin (Indocin), 50 MG PO TID PRN for Pain Allergies Coded Allergies: Amoxicillin (Verified Allergy, Unknown, unknown, 09/21/16) Cephalosporins (Verified Allergy, Unknown, unknown, 09/21/16) Physical Exam Vital Signs Date Time Temp Pulse Resp B/P Pulse Ox O2 Delivery O2 Flow Rate FiO2 09/21/16 03:32 70 18 137/82 97 09/21/16 01:32 36.5 66 18 153/97 97 Room Air Pain Rating (0-10): 4.0 Physical Exam VITALS: Vitals are noted on the nurse's note and reviewed by myself. Vital signs stable. GENERAL: Well-developed, well-nourished, white male, who is in no acute distress and resting comfortably. Patient is cooperative with the examination. HEAD: Normocephalic atraumatic. HEART: Regular rate and rhythm without murmurs gallops or rubs. LUNGS: Clear to auscultation bilaterally without wheezes, rales or rhonchi. No retractions or accessory muscle use. MUSCULOSKELETAL: Very mild erythema but no edema appreciated over the right elbow. The patient is able to supinate and pronate. He has increased tenderness with flexion and extension of the right elbow. No tenderness of the wrist or shoulder. No distinct abscess noted. No palpable cord. NEURO: Patient was alert and oriented to person place and time. CN II through XII grossly intact. Deep tendon reflexes 2+ throughout. Medical Decision & Procedures Laboratory Results 09/21/16 01:55 Red Blood Count 5.41, Mean Corpuscular Volume 86.0, Mean Corpuscular Hemoglobin 29.6, Mean Corpuscular Hemoglobin Concent 34.4, Mean Platelet Volume 11.5, Neutrophils (%) (Auto) 47.9, Lymphocytes (%) (Auto) 39.8, Monocytes (%) (Auto) 8.8, Eosinophils (%) (Auto) 3.0, Basophils (%) (Auto) 0.2, Neutrophils # (Auto) 3.03, Lymphocytes # (Auto) 2.52, Monocytes # (Auto) 0.56, Eosinophils # (Auto) 0.19, Basophils # (Auto) 0.01 09/21/16 01:55 Test 09/21/16 01:55 White Blood Count 6.33 K/uL (4.8-10.8) Red Blood Count 5.41 M/uL (4.7-6.1) Hemoglobin 16.0 g/dL (14.0-18.0) Hematocrit 46.5 % (42-52) Mean Corpuscular Volume 86.0 fL (80-100) Mean Corpuscular Hemoglobin 29.6 pg (25-34) Mean Corpuscular Hemoglobin Concent 34.4 g/dl (32-36) Platelet Count 157 K/uL (130-400) Mean Platelet Volume 11.5 fL (7.4-10.4) Neutrophils (%) (Auto) 47.9 % Lymphocytes (%) (Auto) 39.8 % Monocytes (%) (Auto) 8.8 % Eosinophils (%) (Auto) 3.0 % Basophils (%) (Auto) 0.2 % Neutrophils # (Auto) 3.03 K/uL (1.4-6.5) Lymphocytes # (Auto) 2.52 K/uL (1.2-3.4) Monocytes # (Auto) 0.56 K/uL (0.11-0.59) Eosinophils # (Auto) 0.19 K/uL (0-0.5) Basophils # (Auto) 0.01 K/uL (0-0.2) RDW Standard Deviation 40.5 fL (36.4-46.3) RDW Coefficient of Variation 12.8 % (11.5-14.5) Immature Granulocyte % (Auto) 0.3 % Immature Granulocyte # (Auto) 0.02 K/uL (0.00-0.02) Erythrocyte Sedimentation Rate 1 mm/hr (0-14) Anion Gap 8.0 mmol/L (3-11) Est Creatinine Clear Calc Drug Dose 198.2 ml/min Estimated GFR () 135.8 Estimated GFR (Non- 117.2 BUN/Creatinine Ratio 15.1 (10-20) Uric Acid 9.5 mg/dl (2.6-7.2) Calcium Level 8.5 mg/dl (8.5-10.1) Total Bilirubin 1.0 mg/dl (0.2-1) Aspartate Amino Transf (AST/SGOT) 26 U/L (15-37) Alanine Aminotransferase (ALT/SGPT) 57 U/L (12-78) Alkaline Phosphatase 97 U/L (45-117) C-Reactive Protein < 0.29 mg/dl (0-0.29) Total Protein 7.4 gm/dl (6.4-8.2) Albumin 3.8 gm/dl (3.4-5.0) Globulin 3.6 gm/dl (2.5-4.0) Albumin/Globulin Ratio 1.1 (0.9-2) Lyme Disease IgG Antibody NEG (NEG) Lyme Disease IgM Antibody NEG (NEG) Medications Administered Medications (Trade) Dose Ordered Sig/Lucila Route Start Time Stop Time Status Last Admin Dose Admin Dexamethasone Sodium Phosphate 10 mg 10 mg NOW ONCE IV 09/21/16 02:00 09/21/16 02:01 DC 09/21/16 02:11 10 MG Sodium Chloride (Nss 1000ml) 1,000 ml @ 999 mls/hr Q1H1M ONCE IV 09/21/16 02:00 09/21/16 03:00 DC 09/21/16 02:11 999 MLS/HR Ketorolac Tromethamine (Toradol Inj) 30 mg NOW STAT IV 09/21/16 01:46 09/21/16 01:48 DC 09/21/16 02:12 30 MG ED Course Physical exam and history were performed. Nursing notes and EMR were reviewed. Patient appears to have right elbow pain for the past day. He is taking indomethacin which typically helps his gout symptoms. His symptoms do worsen with movement of the elbow. IV access was established and labs were obtained. The patient was given 30 mg IV Toradol as well as 10 mg IV Decadron. X-ray was obtained and shows a spur but no obvious bony injury per my my attending's interpretation. The patient's blood work is as above and was reviewed. He does not have a significantly elevated white blood cell count. His sedimentation rate and CRP are negative. Lyme is negative. His uric acid is elevated, and clinically this would correlate with a gouty attack. I discussed options of care with the patient. He is to continue the indomethacin. There is concern for the cost of medication such as colchicine for the patient. Because of this I will give him a short course of steroids and have him follow-up with his primary care physician this week for further care options. The patient was pleased with this plan of voice understanding. He rated his discomfort a 3/10 at the time of departure. The chart was completed utilizing [employer] Speech Voice Recognition Software. Grammatical errors, random word insertions, pronoun errors, and incomplete sentences are an occasional consequence of this system due to software limitations, ambient noise, and hardware issues. Any formal questions or concerns about the content, text, or information contained within the body of this dictation should be directly addressed to the provider for clarification. . Medical Decision Differential diagnosis includes, but is not limited to: Sprain, strain, fracture , dislocation, subluxation, contusion, gouty arthropathy, septic joint, and others Impression Primary Impression: Gout attack Departure Information Dispostion Home / Self-Care Condition GOOD Prescriptions Prednisone (Prednisone) 50 Mg Tab 50 MG PO DAILY for 4 Days, #4 TAB Prov: Conrado Harper PA-C 09/21/16 Forms HOME CARE DOCUMENTATION FORM, IMPORTANT VISIT INFORMATION Patient Instructions My [facility] Additional Instructions You were seen and evaluated today on an emergency basis only. This is not a substitute for, or an effort to provide, complete comprehensive medical care. It is not possible to recognize and treat all injuries or illnesses in a single emergency department visit. For this reason it is recommended that you followup with your primary care physician this week for ongoing care and evaluation. Continue Indocin as prescribed. Take prednisone daily for the next 4 days You are welcome to return to the emergency department anytime with new, worsening, or concerning symptoms.
--- NOTE | 2016-09-21 07:25 | DIAGNOSTIC IMAGING REPORT ---
RIGHT ELBOW 4 VIEWS CLINICAL HISTORY: Right elbow pain. Gout. No reported history of trauma. FINDINGS: 4 views of the right elbow are obtained. No prior studies are available for comparison at the time of dictation. The skeletal structures are well mineralized. No fracture is seen. A large enthesophyte is the triceps insertion on the olecranon process. No erosive change is suggested. Mild degenerative spurring is seen along the medial joint space. No soft tissue calcifications are observed. There is mild dorsal soft tissue edema. No joint effusion is seen. IMPRESSION: Dorsal soft tissue swelling. No acute bony abnormality is identified. Electronically signed by: Eric Gaytan M.D. 09/21/2016 7:24 AM Dictated Date/Time: 09/21/2016 7:23 AM
== END 2016-09-21 03:32 | disposition home or self-care (01) ==
LOC: C.EDB 01:27
DX: M10.9 Gout, unspecified (principal); K21.9 Gastro-esophageal reflux disease without esophagitis; Z83.3 Family history of diabetes mellitus; Z79.899 Other long term (current) drug therapy

== ENCOUNTER 2017-03-20 23:13 | Emergency (ER) | payer BC ==
[~2017-03-20] VITALS: Ht 188 cm; Wt 165.0 kg
[~2017-03-20 23:13] MED LIST changes: -CIPR1TAB10 PO; +INDO50CA97 PO; -OXYC-57 PO
[2017-03-20 23:16] VITALS: TEMP 36.8; Ht 188 cm; Wt 165.0 kg
[2017-03-21 00:09] VITALS: BP 152/87; PULSE 84; O2SAT 97
--- NOTE | 2017-03-21 02:02 | EMERGENCY ROOM VISIT NOTE ---
ED Visit Note First contact with patient: 23:19 CHIEF COMPLAINT: Ankle and heel pain HISTORY OF PRESENT ILLNESS: This 26-year-old patient presents to the emergency department after sustaining an injury to the right ankle and foot with a twisting, inversion motion playing football yesterday when he was tackled. The patient complains of pain along the outside of the ankle. The patient complains of chronic ongoing pain to the plantar fascia of his right foot for quite some time. The patient rates the pain as throbbing and 5/10. The patient is able to bear weight on the foot. Constant pain, worse with movement , weight bearing, and the dependent position. No knee pain, the patient is able to move their toes. No numbness or weakness of the foot, no laceration. The patient has not had a previous fracture to this ankle. The patient has taken nothing for the pain. The patient denies any other injury. Patient has a history of recurrent sprains to this ankle. He does not have an orthopedic doctor. REVIEW OF SYSTEMS: A 6 system review of systems was completed with positives and pertinent negatives listed in the HPI. ALLERGIES: Amoxicillin, cephalosporins MEDICATIONS: Reviewed PMH: Medical Problems: (1) Diverticulitis Status: Resolved (2) GERD (gastroesophageal reflux disease) Status: Chronic Surgical Problems: (1) [place] teeth extracted Status: Resolved SOCIAL HISTORY: No drug use PHYSICAL EXAM: Vital Signs: Reviewed Nurse's notes, vital signs mildly hypertensive most likely secondary to pain. GENERAL: Pleasant male, no acute distress, but appears in pain, well-developed, well-nourished. MENTAL STATUS: Alert, oriented to person place and time, and cooperative. MUSCULOSKELETAL: The right ankle is swollen and tender over the lateral malleolus, but the skin is intact and there is no ligamentous instability. There is no fifth metatarsal tenderness. There is tenderness over plantar fascia of the right foot concerning for plantar fasciitis. There is no calf or tibia/fibular tenderness. There is no visual deformity. The foot and toes are warm and well- perfused. Dorsalis pedis pulse 2+. Sensation to pain and light touch is intact. Capillary refill less than 2 seconds. EMERGENCY DEPARTMENT COURSE: I examined the patient. Patient declined pain meds.. X-rays of the right heel and ankle were reviewed by myself and my attending and reveal no fracture, soft tissue swelling. Cornelius wrap was applied to the ankle under my direction and the position was satisfactory. Neurovascular status was rechecked and intact. The patient was instructed on the use of crutches. Patient was advised to use a can of soup in the morning to roll underneath his foot to stretch out his plantar fascia. He was advised to get foot inserts to help out with his plantar fasciitis. He was advised to follow-up orthopedics in a few days for his ankle sprain and plantar fasciitis if symptoms persist or here in the ER sooner for severe pain, numbness, tingling , worsening signs or symptoms or as needed. The patient was discharged home in good condition. Differential diagnoses include sprain, strain, tendinitis, plantar fasciitis, fracture, dislocation and other etiologies were considered. DIAGNOSIS: #1 right ankle sprain #2 right plantar fasciitis DISCHARGE INSTRUCTIONS: As below Problem List Medical Problems: (1) Diverticulitis Status: Resolved (2) GERD (gastroesophageal reflux disease) Status: Chronic Surgical Problems: (1) [place] teeth extracted Status: Resolved Current/Historical Medications Scheduled Dicyclomine Hcl (Dicyclomine Hcl), 10 MG PO ACHS Omeprazole (Prilosec), 20 MG PO DAILY Allergies Coded Allergies: Amoxicillin (Verified Allergy, Unknown, unknown, 09/21/16) Cephalosporins (Verified Allergy, Unknown, unknown, 09/21/16) Vital Signs Date Time Temp Pulse Resp B/P (MAP) Pulse Ox O2 Delivery O2 Flow Rate FiO2 03/21/17 00:09 84 16 152/87 97 03/20/17 23:16 36.8 79 18 167/86 96 Room Air Departure Information Impression Primary Impression: Right ankle sprain Additional Impression: Plantar fasciitis of right foot Dispostion Home / Self-Care Condition GOOD Referrals Conrado Coates M.D. Forms HOME CARE DOCUMENTATION FORM, Work Instructions, Return To Work: 1 day IMPORTANT VISIT INFORMATION Patient Instructions Sprain Ankle Tx, My [facility], ED Plantar Fasciitis Additional Instructions First thing in the morning take a can of soup or soda and roll underneath your foot health stretch your plantar fascia out. Wear foot inserts. Ibuprofen(Motrin, Advil) may be used for fever or pain. Use 600mg every six hours as needed. Take with food. Avoid using more than 2400mg in a 24 hour period. Do not use 2400mg per day for more than three consecutive days without physician direction. Prolonged inappropriate use can lead to stomach upset or ulcers. This medication can be taken if you need to drive, work, or perform activities which may be dangerous when taking narcotic pain medication. (AND/OR) Acetaminophen(Tylenol) may be used for fever or pain. Use 1000mg every six hours as needed. Avoid using more than 3000mg in a 24 hour period. This medication can be taken if you need to drive, work, or perform activities which may be dangerous when taking narcotic pain medication. Ice compresses for 20 minutes at a time four times daily for 2-3 days. Use the crutches as instructed. Rest and elevate your injury. Wear Cornelius wrap for compression and comfort until symptoms subside. Do not have it so tight that you cannot feel your foot. Continue current medications. Return to the ER immediately for any numbness, tingling, severe pain, extreme swelling in the extremity or as needed. Call Orthopedics in 3-5 days if symptoms persist to arrange follow up for your injury. Work Instructions Return To Work: 1 day Problem Qualifiers
--- NOTE | 2017-03-21 07:00 | DIAGNOSTIC IMAGING REPORT ---
RIGHT ANKLE 3 VIEWS CLINICAL HISTORY: Right ankle injury. FINDINGS: 3 views of the right ankle are obtained. No prior studies are available for comparison at the time of dictation. The skeletal structures are well mineralized. There is a tiny avulsion fracture seen along the lateral aspect of the foot, only identified on the AP view. The donor site is unclear. No fracture is seen at the ankle joint. The ankle mortise is intact. Degenerative spurring is seen along the dorsal aspect of the tarsal bones. There is a dorsal calcaneal enthesophyte. Soft tissue edema is present around the ankle and hindfoot. An ankle joint effusion is noted. IMPRESSION: 1. There is a tiny avulsion fracture fragment seen along the lateral aspect of the foot. The donor site is unclear. 2. No fracture is seen at the ankle joint. 3. Soft tissue edema and joint effusion as above. Electronically signed by: Eric Gaytan M.D. 03/21/2017 6:59 AM Dictated Date/Time: 03/21/2017 6:57 AM
--- NOTE | 2017-03-21 07:11 | DIAGNOSTIC IMAGING REPORT ---
RIGHT CALCANEUS 2 VIEWS HISTORY: Right heel PAIN COMPARISON: None. FINDINGS: Soft tissues are unremarkable. No radiopaque foreign bodies. Small posterior calcaneal spur. Lucency at the anterior process of the calcaneus which could be due to overlapping soft tissue or nondisplaced fracture. IMPRESSION: Lucency at the anterior process of the calcaneus which could be due to overlapping soft tissue or a small nondisplaced fracture. Electronically signed by: Hernando Ford M.D. 03/21/2017 7:10 AM Dictated Date/Time: 03/21/2017 7:07 AM
== END 2017-03-21 00:09 | disposition home or self-care (01) ==
LOC: C.EDB 23:14 → C.EDA 03-21 00:09
DX: S93.401A Sprain of unspecified ligament of right ankle, initial encounter (principal); M72.2 Plantar fascial fibromatosis; W03.XXXA Other fall on same level due to collision with another person, initial encounter; X50.1XXA Overexertion from prolonged static or awkward postures, initial encounter; Y93.61 Activity, american tackle football; Y99.8 Other external cause status; K21.9 Gastro-esophageal reflux disease without esophagitis; Z98.818 Other dental procedure status; Z79.899 Other long term (current) drug therapy

== ENCOUNTER 2018-08-11 14:54 | Inpatient (IN) ==
[2018-08-11] MEDS ORDERED: MoRPHine SULFATE 10 MG/ML CARP/VIAL IV STA ×2 (15:13→18:00)
[2018-08-11] MEDS ORDERED: ONDANSETRON INJ 2 MG/ML 2 ML VIAL IV STA (15:13)
[2018-08-11] MEDS ORDERED: SODIUM CHLORIDE 0.9% 1000ML 1,000 ML IV ONE (15:13)
[2018-08-11 15:40] LABS: Basophils # (auto) 0.01 K/uL (0-0.2); Basophils % (auto) 0.1 %; Eosinophils # (auto) 0.04 K/uL (0-0.5); Eosinophils % (auto) 0.3 %; Hematocrit (blood only) 46.3 % (42-52); Immature Granulocytes # (auto) 0.04 K/uL (0.00-0.02); Immature Granulocytes % (auto) 0.3 %; Lymphocytes # (auto) 0.93 K/uL (1.2-3.4); Lymphocytes % (auto) 6.6 %; Mean Corpuscular Hgb Conc 34.6 g/dL (32-36); Mean Platelet Volume 11.8 fL (7.4-10.4); Monocytes # (auto) 1.09 K/uL (0.11-0.59); Monocytes % (auto) 7.7 %; Neutrophils # (auto) 12.07 K/uL (1.4-6.5); Platelet Count 168 K/uL (130-400); RDW Standard Deviation 41.2 fL (36.4-46.3); Red Blood Count 5.32 M/uL (4.7-6.1); White Blood Count 14.18 K/uL (4.8-10.8)
[2018-08-11 16:04] LABS: Albumin Level 3.7 gm/dl (3.4-5.0); BUN Creatinine Ratio 11.5 (10-20); Bilirubin Direct 0.5 mg/dl (0-0.2); Calcium 9.1 mg/dl (8.5-10.1); Creatinine Clr Calc Pharmacy 188.3 ml/min; Est GFR (African American) 133.3; Potassium 3.8 mmol/L (3.5-5.1)
[2018-08-11 16:06] LABS: C Reactive Protein 4.35 mg/dl (0-0.29); Total Protein 7.9 gm/dl (6.4-8.2)
[2018-08-11 17:11] LABS: Appearance Urine Clear (Clear); Bilirubin Urine Negative (Negative); Blood Urine Negative (Negative); Color Urine Yellow; Glucose Urine UA Negative (Negative); Ketones Urine Trace (Negative); Leukocyte Esterase Urine Negative (Negative); Nitrite Urine Negative (Negative); Protein Urine Negative (Negative); Specific Gravity Urine 1.018 (1.000-1.030); Urobilinogen Urine Negative (Negative); pH Urine 7.5 (4.5-7.5)
[2018-08-11] MEDS ORDERED: IOVERSOL 100ml IV PRN (17:19)
--- NOTE | 2018-08-11 17:42 | CT Scan Report ---
CT SCAN OF THE ABDOMEN AND PELVIS WITH IV CONTRAST CLINICAL HISTORY: Lower abdominal pain. Leukocytosis. COMPARISON STUDY: Abdominal CT dated 06/28/2016. TECHNIQUE: Following the IV administration of 94 cc of Optiray 320, CT scan of the abdomen and pelvi s is performed from the lung bases to the proximal femora. Images are reviewed in the axial, sagittal , and coronal planes. IV contrast was administered without complication. A dose lowering technique wa s utilized adhering to the principles of ALARA. CT DOSE: 1201.75 mGycm FINDINGS: Lung bases: The heart is normal in size and without pericardial effusion. The lung bases are clear. Liver: The contrast-enhanced liver is normal in size, contour, and attenuation. There is no intrahepa tic biliary ductal dilatation. The hepatic veins and portal veins are patent. Gallbladder: Unremarkable. Spleen: The spleen is enlarged, measuring 16.7 cm in length. Pancreas: Unremarkable. Adrenal glands: Unremarkable. Kidneys: The contrast enhanced kidneys are normal in size and without hydronephrosis. The kidneys enh ance symmetrically. Abdominal vasculature: The abdominal aorta is normal in course and caliber. Bowel: There is mild sigmoid diverticulosis. There is wall thickening involving the sigmoid colon wit h surrounding inflammation and trace fluid. The appearance is consistent with acute diverticulitis. S mall foci of intraperitoneal free air are seen adjacent to the sigmoid colon on image #[id number]. No organi zed fluid collection is seen to suggest abscess. No bowel obstruction is identified. The appendix is well-visualized and normal. Peritoneum: As noted above, there are small foci of intraperitoneal free air adjacent the sigmoid col on. Trace fluid is noted in the right paracolic gutter. There is a fat-containing umbilical hernia. Lymphadenopathy: None. Pelvic viscera: The bladder, prostate, and seminal vesicles are normal as imaged. Skeletal structures: No lytic or blastic lesions are seen. IMPRESSION: 1. There is mild sigmoid diverticulosis with evidence of severe acute sigmoid diverticulitis. 2. Small foci of intraperitoneal free air are seen adjacent to the sigmoid colon and indicate perfora tion. 3. No organized fluid collection is seen to suggest abscess. 4. Splenomegaly. 5. Additional findings as above. Electronically signed by: Eric Gaytan M.D. 08/11/2018 5:41 PM
[2018-08-11] MEDS ORDERED: metroNIDAZOLE 500 MG/100 ML BAG IV STA (17:51)
[2018-08-11] MEDS ORDERED: CIPROFLOXACIN 400 MG/200 ML BAG IV STA (17:51)
[2018-08-11] MEDS ORDERED: MoRPHine SULFATE 10 MG/ML CARP/VIAL IV PRN (18:00)
--- NOTE | 2018-08-11 18:17 | Emergency Department Note ---
Entered by Jamie Okeefe acting as a scribe for Deng Squires MD ED Provider Note Name: Gennaro Segura Age: 27 M Arrives Via: private vehicle Informant: patient CC: lower abdominal pain HPI: The patient is a 27 year old male who presents to the Emergency Room with complaints of constant and worsening lower abdominal pain beginning last night. The patient reports that he has also had diarrhea with some blood and mucous. He notes subjective fevers and nausea without vomiting. He denies chest pain, abdominal pain, falls, injuries, rashes, dietary changes, or sick contact. He reports a history of diverticulitis that was treated with medication and did not require surgical intervention. He notes that he recently had a colonoscopy that did not show polyps. He states that he does not take any chronic pain medications, and he did not take anything for his pain or nausea prior to arrival. ROS: See above HPI for pertinent positives & negatives. A total of 10 systems reviewed and were otherwise negative. Past Medical History: diverticulitis, GERD Past Surgical History: no significant surgical history Family History: no significant family history Social History: employed, lives with family, never smoker Home Medications: Zyloprim, ibuprofen, indomethacin, omeprazole Allergies amoxicillin, Cephalosporins Physical: Vitals: BP: 149/74, Pulse: 84, Resp: 20, Temp: 98.4 F, O2 Sat: 97, Delivery: Room air Exam: GENERAL: Patient is very uncomfortable appearing and in moderate distress. EYES: No scleral icterus, unremarkable pupils. ENT: Mucous membranes moist, no nasal congestion. NECK: No masses appreciated, no meningismus, trachea is midline. RESPIRATORY: No dyspnea. Clear to auscultation and equal bilaterally. No wheeze, no rhonchi. CARDIOVASCULAR: Regular rate and rhythm. No murmurs, rubs, gallops appreciated. GASTROINTESTINAL: Abdomen soft, moderate lower abdominal tenderness to palpation, no peritonitis. Bowel sounds positive. No masses appreciated. BACK: No midline tenderness, no CVA tenderness EXTREMITIES: Normal motion all extremities, no cyanosis, no edema. NEUROLOGIC: Alert and oriented, no acute motor or sensory deficits, no focal weakness, cranial nerves grossly intact. SKIN: No rash, no jaundice, no diaphoresis. ED Course: Prior Medical Record, Triage/Nursing Notes, Medications, Allergies reviewed by Me Vital Signs: reviewed and remarkable for wnl Labs: Reviewed and remarkable for elevated wbc, crp Interventions: Saline Lock, Morphine 10mg & 8mg IV, Zofran 4mg IV, NSS bolus, Cipro 400mg IV, Flagyl 500mg IV Imaging: Radiologist interpretation reviewed by me: CT abdo pel with iv con: acute perforated sigmoid diverticulitis EKG: none Consults: Gen Surg (Olimpia) agrees with cipro/flagyl and medical admission to this facility. Dr Rosa of [facility] Hospitalist will bring in Reassessments/Times: 1510: The patient was evaluated in room C10, and a complete history and physical examination were performed. 1607: The patient reports improvement of her symptoms and is agreeable to CT. 1800: CT findings reviewed with patient. agreeable to admission. Blood pressure: Normal. No Referral necessary Disposition: Hospitalization Differentials: Etiologies such as appendicitis, diverticulitis, PUD, biliary pathology, UTI, pancreatitis, obstruction, mesenteric ischemia, aortic pathology, infections, inflammatory bowel disease, renal colic, as well as others were entertained. Medical Decision Making: Pleasant 27 yr old male with bilateral lower abdominal pain x 2 days. TTP on palpation. WBC elevated and thus CT felt indicated. Perforated diverticulitis noted. He is not septic appearing. reveiwed with gen surg who agree with admission at this facility. Hospitalist consulted. Patient agrees with plan. Stable throughout. Impression: Perforation of sigmoid colon due to diverticulitis Deng Squires MD The scribe's documentation has been prepared under my direction and personally reviewed by me in its entirety. I confirm that the note above accurately reflects all work, treatment, procedures, and medical decision making performed by me. Impression & Plan Perforation of sigmoid colon due to diverticulitis Past Med/Surg History Medical History Diverticulitis (Resolved) GERD (gastroesophageal reflux disease) (Chronic) Family History Other No significant family history Social History Current Living Situation: Family current occupational status: employed Feels Safe at Home: Yes Smoking Status: Never smoker Results & Data Vital Signs Vital Signs - 24 hr 08/11/18 14:59 08/11/18 17:00 Temperature 36.9 C Temperature Source Oral Sepsis Recent Fever Within 48 Hours No Sepsis Action Taken by Nursing No Action Required Pulse Rate 84 Pulse Rate [Right Finger] 94 H Pulse Rhythm [Right Finger] Regular Pulse Strength [Right Finger] Normal Respiratory Rate 20 20 Respiratory Effort / Characteristics Non-Labored Spontaneous Non-Labored Spontaneous Respiratory Depth Normal Normal Respiratory Pattern Regular Regular Blood Pressure 149/74 H Blood Pressure [Right Arm] 130/74 Blood Pressure Mean 99 Blood Pressure Mean [Right Arm] 92 Blood Pressure Position [Right Arm] Sitting Pulse Oximetry 97 95 Oxygen Delivery Method Room Air Room Air Home Medications Current Medication List: was personally reviewed by me Laboratory Data Attestation: I reviewed the patient's lab results. Result diagrams: 08/11/18 15:31 08/11/18 15:31 Lab Results 08/11/18 08/11/18 08/11/18 Range/Units 15:31 15:31 17:03 WBC 14.18 H (4.8-10.8) K/uL RBC 5.32 (4.7-6.1) M/uL Hgb 16.0 (14.0-18.0) g/dL Hct 46.3 (42-52) % MCV 87.0 (80-100) fL MCH 30.1 (25-34) pg MCHC 34.6 (32-36) g/dL RDW Std Deviation 41.2 (36.4-46.3) fL RDW Coeff of Cookie 13.0 (11.5-14.5) % Plt Count 168 (130-400) K/uL MPV 11.8 H (7.4-10.4) fL Immature Gran % (Auto) 0.3 % Neut % (Auto) 85.0 % Lymph % (Auto) 6.6 % [place] % (Auto) 7.7 % Eos % (Auto) 0.3 % Baso % (Auto) 0.1 % Immature Gran # (Auto) 0.04 H (0.00-0.02) K/uL Neut # (Auto) 12.07 H (1.4-6.5) K/uL Lymph # (Auto) 0.93 L (1.2-3.4) K/uL [place] # (Auto) 1.09 H (0.11-0.59) K/uL Eos # (Auto) 0.04 (0-0.5) K/uL Baso # (Auto) 0.01 (0-0.2) K/uL Sodium 136 (136-145) mmol/L Potassium 3.8 (3.5-5.1) mmol/L Chloride 105 (98-107) mmol/L Carbon Dioxide 28 (21-32) mmol/L Anion Gap 3.0 (3-11) BUN 10 (7-18) mg/dl Creatinine 0.90 (0.6-1.4) mg/dl Est Cr Clr Drug Dosing 188.3 ml/min Est GFR ( Amer) 133.3 Est GFR (Non-Af Amer) 115.0 BUN/Creatinine Ratio 11.5 (10-20) Glucose 98 (70-99) mg/dl Calcium 9.1 (8.5-10.1) mg/dl Total Bilirubin 3.0 H (0.2-1) mg/dl Direct Bilirubin 0.5 H (0-0.2) mg/dl AST 11 L (15-37) U/L ALT 40 (12-78) U/L Alkaline Phosphatase 118 H (45-117) U/L C-Reactive Protein 4.35 H (0-0.29) mg/dl Total Protein 7.9 (6.4-8.2) gm/dl Albumin 3.7 (3.4-5.0) gm/dl Urine Color Yellow Urine Appearance Clear (Clear) Urine pH 7.5 (4.5-7.5) Ur Specific [place] 1.018 (1.000-1.030) Urine Protein Negative (Negative) Urine Glucose (UA) Negative (Negative) Urine Ketones Trace H (Negative) Urine Blood Negative (Negative) Urine Nitrite Negative (Negative) Urine Bilirubin Negative (Negative) Urine Urobilinogen Negative (Negative) Ur Leukocyte Esterase Negative (Negative) Administered Medications Ioversol (Optiray 320 100ml) 94 ml IV ONCE PRN PRN Reason: Interaction Checking Stop: 08/15/18 17:18 Last Admin: 08/11/18 17:20 Dose: 94 ml Documented by: [id number] Discontinued Medications Sodium Chloride (Nss 1000ml) 1,000 mls @ 999 mls/hr IV .Q1H1M ONE Stop: 08/11/18 16:13 Last Infusion: 08/11/18 16:38 Dose: 0 mls/hr Documented by: [id number] Admin: 08/11/18 15:38 Dose: 999 mls/hr Documented by: [id number] Morphine Sulfate (Morphine Sulfate) 10 mg IV NOW STA Stop: 08/11/18 15:14 Last Admin: 08/11/18 15:38 Dose: 10 mg Documented by: [id number] Ondansetron HCl (Zofran) 4 mg IV NOW STA Stop: 08/11/18 15:14 Last Admin: 08/11/18 15:38 Dose: 4 mg Documented by: [id number] Discharge Plan Visit Data Chief Complaint: Abdominal Pain Stated Complaint: BAD STOMACH PAIN (KNOWN DIVERTICULITUS) ED Provider: Deng Squires Discharge Problem: Perforation of sigmoid colon due to diverticulitis Forms Stand Alone Forms: My [facility] [address] Prescriptions Prescriptions: No Action allopurinol [Zyloprim] 100 mg tablet 100 mg PO BID RF: 0 indomethacin 50 mg capsule 50 mg PO TID RF: 0 omeprazole 20 mg capsule,delayed release(DR/EC) 20 mg PO DAILY RF: 0 ibuprofen [IBU] 600 mg tablet 600 mg PO TID PRN (Reason: Pain) RF: 0 The scribe's documentation has been prepared under my direction and personally reviewed by me in its entirety. I confirm that the note above accurately r eflects all work, treatment, procedures, and medical decision making performed by me.
[2018-08-11] MEDS ORDERED: ACETAMINOPHEN 325 MG TAB PO STA (18:36)
[2018-08-11] MEDS ORDERED: MoRPHine SULFATE 4 MG/ML 1 ML CARP\\VIAL IV PRN (18:36)
--- NOTE | 2018-08-11 19:00 | History & Physical Report ---
Date of Service August 11, 2018 Assessment & Plan (1) Perforation of sigmoid colon due to diverticulitis: Discussed case with Dr. Leigh Recommend medical management for now Will continue ciprofloxacin plus Flagyl IV Keep patient n.p.o. except meds and ice chips and sips of water, start IV f luids, as needed morphine for pain ELEVATED INDIRECT BILIRUBIN Review of records showed patient has history of increased indirect bilirubin up to 3 during admission for diverticulitis in 2017 CT abdomen and pelvis showing no biliary obstruction AST/ALT within normal limits Alk phos slightly elevated Continue to trend LFTs We will consult GI GOUT Patient a few days ago experienced swelling of the right ankle He was placed on indomethacin 50 mg 3 times daily with improvement of symptom- hold while admitted in light of diverticulitis with perforation Allopurinol ordered 100 mg twice daily-continue while admitted HISTORY OF GERD Provide Protonix IV daily DVT prophylaxis SCDs for now in light of progressive perforation, possible surgical intervention at any time Disposition Anticipate discharge home medically stable and cleared by GI and general surgery History of Present Illness Primary Care Provider: Darwin Mark MD 37-year-old male with history of diverticulitis, gout, GERD Presenting with severe lower abdominal pain starting this morning. Patient reports that for the past couple of weeks, he has been having intermittent lower abdominal pain, sharp, associated with diarrhea. This morning he developed severe lower abdominal pain associated with diarrhea with streaks of blood. Persistence of abdominal pain prompted consult to the ER. At the ER, patient is hemodynamically stable. CAT scan of the abdomen showed severe acute sigmoid diverticulitis with small amount of intraperitoneal air to indicate perforation. Patient was given Cipro and Flagyl IV. Exam, the patient is not in distress, no nausea. Reports abdominal pain is about 3 out of 10 being given morphine. No other active symptoms Allergies Allergy/AdvReac Type Severity Reaction Status Date / Time amoxicillin Allergy Unknown unknown Verified 08/11/18 15:52 Cephalosporins Allergy Unknown unknown Verified 08/11/18 15:52 Home Medications Home Medications Medication Instructions Recorded Confirmed Type allopurinol [Zyloprim] 100 mg PO BID 08/11/18 08/11/18 History ibuprofen [IBU] 600 mg PO TID PRN 08/11/18 08/11/18 History indomethacin 50 mg PO TID 08/11/18 08/11/18 History omeprazole 20 mg PO DAILY 08/11/18 08/11/18 History Past Med/Surg History Medical History Diverticulitis (Resolved) GERD (gastroesophageal reflux disease) (Chronic) Family History Other No significant family history Social History Preferred Language: Colombian Communication Ability: Effective Hr Generalist Required: No Beliefs That Will Affect Care: None Current Living Situation: Alone current occupational status: employed Other Information That Helps Us Care for You: No Feels Safe at Home: Yes Safety Concerns: Feels Safe At This Time Smoking Status: Never smoker Hx Alcohol Use: Yes Hx Substance Use: No Physical Exam Vital Signs (Past 24 Hours): Last Vital Signs Temp 36.9 C 08/11/18 14:59 Pulse 95 H 08/11/18 18:39 Resp 20 08/11/18 18:39 BP 139/72 08/11/18 18:39 Pulse Ox 99 08/11/18 18:39 Physical Exam: General- oriented x 3, not in distress, speaks in sentences with no effort or accessory muscle use Head- atraumatic Eyes- PERRL, EOMI, anicteric ENT- oropharynx clear Neck- supple, no JVD, no adenopathy, no thyromegaly; carotids +2/2, no bruits appreciated Lungs- clear to auscultation bilaterally, no rales/wheezes Heart- normal rate, regular rhythm; no murmur, no gallop, no rub appreciated Abdomen- normal bowel sounds, nondistended, soft, positive mild tenderness to the left lower quadrant and suprapubic area. No Coronel sign Extremities- no pretibial edema, no calf tenderness; peripheral pulses intact Right ankle essentially normal Neuro- alert, oriented x 3; CN 2-12 grossly intact; motor 5/5 bilaterally;sensation 100% on all extremities; no other gross focal neurologic deficits Skin- warm & dry Results & Data Laboratory Results Laboratory Results - last 24 hr 08/11/18 08/11/18 08/11/18 15:31 15:31 17:03 WBC 14.18 H RBC 5.32 Hgb 16.0 Hct 46.3 MCV 87.0 MCH 30.1 MCHC 34.6 RDW Std Deviation 41.2 RDW Coeff of Cookie 13.0 Plt Count 168 MPV 11.8 H Immature Gran % (Auto) 0.3 Neut % (Auto) 85.0 Lymph % (Auto) 6.6 [place] % (Auto) 7.7 Eos % (Auto) 0.3 Baso % (Auto) 0.1 Immature Gran # (Auto) 0.04 H Neut # (Auto) 12.07 H Lymph # (Auto) 0.93 L [place] # (Auto) 1.09 H Eos # (Auto) 0.04 Baso # (Auto) 0.01 Sodium 136 Potassium 3.8 Chloride 105 Carbon Dioxide 28 Anion Gap 3.0 BUN 10 Creatinine 0.90 Est Cr Clr Drug Dosing 188.3 Est GFR ( Amer) 133.3 Est GFR (Non-Af Amer) 115.0 BUN/Creatinine Ratio 11.5 Glucose 98 Calcium 9.1 Total Bilirubin 3.0 H Direct Bilirubin 0.5 H AST 11 L ALT 40 Alkaline Phosphatase 118 H C-Reactive Protein 4.35 H Total Protein 7.9 Albumin 3.7 Urine Color Yellow Urine Appearance Clear Urine pH 7.5 Ur Specific [place] 1.018 Urine Protein Negative Urine Glucose (UA) Negative Urine Ketones Trace H Urine Blood Negative Urine Nitrite Negative Urine Bilirubin Negative Urine Urobilinogen Negative Ur Leukocyte Esterase Negative Code Status & VTE Plan Code Status Full code VTE Prophylaxis Plan VTE Prophylaxis will be ordered: Yes
[2018-08-11] MEDS ORDERED: ONDANSETRON INJ 2 MG/ML 2 ML VIAL IV PRN (19:23)
[2018-08-11] MEDS: SODIUM CHLORIDE 0.9% 1000ML 1,000 ML IV SCH (19:32)
[2018-08-11] MEDS ORDERED: ALLOPURINOL 100 MG TAB PO SCH (21:00)
--- NOTE | 2018-08-11 22:40 | Surgery Consultation ---
Date of Consultation August 11, 2018 Assessment & Plan (1) Perforation of sigmoid colon due to diverticulitis: 27-year-old male with second occurrence acute, uncomplicated diverticulitis requiring IV antibiotics and admission. No surgical intervention indicated at this time Continue with IV antibiotics, n.p.o. Patient will need outpatient colonoscopy in 6-8 weeks following resolution of symptoms Patient will need follow-up to discuss potential sigmoidectomy giving history at his young age Surgery will continue to follow, call with questions or concerns Present on Admission?: Yes History of Present Illness Attending Physician: Giovanny Rosa MD History of Present Illness 27-year-old male admitted with acute uncomplicated diverticulitis. He had a prior episode about 1 year ago that required admission with IV antibiotics. No history of abscess or perforation. He started having pain yesterday and got severe this morning. Came to the emergency department where CT scan showed mild mid sigmoid diverticulitis with some flecks of air, no abscess or phlegmon. He is lying comfortably in the bed at this current time. He complains of some left lower quadrant pain, no fevers. No prior abdominal surgeries. Allergies Allergy/AdvReac Type Severity Reaction Status Date / Time amoxicillin Allergy Unknown unknown Verified 08/11/18 15:52 Cephalosporins Allergy Unknown unknown Verified 08/11/18 15:52 Home Medications Home Medications Medication Instructions Recorded Confirmed Type allopurinol [Zyloprim] 100 mg PO BID 08/11/18 08/11/18 History ibuprofen [IBU] 600 mg PO TID PRN 08/11/18 08/11/18 History indomethacin 50 mg PO TID 08/11/18 08/11/18 History omeprazole 20 mg PO DAILY 08/11/18 08/11/18 History Patient History Medical History Diverticulitis (Resolved) GERD (gastroesophageal reflux disease) (Chronic) Family History Other No significant family history Social History Preferred Language: Latvian Communication Ability: Effective Telesales Supervisor Required: No Beliefs That Will Affect Care: None Current Living Situation: Alone current occupational status: employed Other Information That Helps Us Care for You: No Feels Safe at Home: Yes Safety Concerns: Feels Safe At This Time Smoking Status: Never smoker Hx Alcohol Use: Yes Hx Substance Use: No Review of Systems 10 point review of systems negative except as above Physical Exam Vital Signs (Past 24 Hours): Last Vital Signs Temp 37.1 C 08/11/18 20:19 Pulse 95 H 08/11/18 20:19 Resp 16 08/11/18 20:19 BP 132/61 08/11/18 20:19 Pulse Ox 95 08/11/18 20:19 Constitutional: WD/WN, vitals as above Eyes: PERRL, conjunctivae normal, anicteric sclerae ENMT: external ear and nose normal, oropharynx normal Neck: trachea midline, no thyromegaly Respiratory: normal respiratory effort, lungs clear to auscultation Cardiovascular: RRR, no murmur, no edema Gastrointestinal (Abdomen): Inspection/Auscultation: normal bowel sounds Percussion/Palpation: + abdomen tender (Tender palpation in the left lower quadrant, no guarding) and abdomen soft; no guarding Musculoskeletal: no cyanosis or clubbing, extremities motor strength 5/5 Skin: no rashes, warm and dry Neurologic: PERRL, EOMI, accommodation nl, no face palsy, no dysarthria Psychiatric: A+Ox3, euthymic affect Lymphatic: no cervical or axillary lymphadenopathy Results & Data Laboratory Results Laboratory Results - last 24 hr 08/11/18 08/11/18 08/11/18 15:31 15:31 17:03 WBC 14.18 H RBC 5.32 Hgb 16.0 Hct 46.3 MCV 87.0 MCH 30.1 MCHC 34.6 RDW Std Deviation 41.2 RDW Coeff of Cookie 13.0 Plt Count 168 MPV 11.8 H Immature Gran % (Auto) 0.3 Neut % (Auto) 85.0 Lymph % (Auto) 6.6 [place] % (Auto) 7.7 Eos % (Auto) 0.3 Baso % (Auto) 0.1 Immature Gran # (Auto) 0.04 H Neut # (Auto) 12.07 H Lymph # (Auto) 0.93 L [place] # (Auto) 1.09 H Eos # (Auto) 0.04 Baso # (Auto) 0.01 Sodium 136 Potassium 3.8 Chloride 105 Carbon Dioxide 28 Anion Gap 3.0 BUN 10 Creatinine 0.90 Est Cr Clr Drug Dosing 188.3 Est GFR ( Amer) 133.3 Est GFR (Non-Af Amer) 115.0 BUN/Creatinine Ratio 11.5 Glucose 98 Calcium 9.1 Total Bilirubin 3.0 H Direct Bilirubin 0.5 H AST 11 L ALT 40 Alkaline Phosphatase 118 H C-Reactive Protein 4.35 H Total Protein 7.9 Albumin 3.7 Urine Color Yellow Urine Appearance Clear Urine pH 7.[address] [place] 1.018 Urine Protein Negative Urine Glucose (UA) Negative Urine Ketones Trace H Urine Blood Negative Urine Nitrite Negative Urine Bilirubin Negative Urine Urobilinogen Negative Ur Leukocyte Esterase Negative Diagnostic Findings CT SCAN OF THE ABDOMEN AND PELVIS WITH IV CONTRAST CLINICAL HISTORY: Lower abdominal pain. Leukocytosis. COMPARISON STUDY: Abdominal CT dated 06/28/2016. TECHNIQUE: Following the IV administration of 94 cc of Optiray 320, CT scan of the abdomen and pelvis is performed from the lung bases to the proximal femora. Images are reviewed in the axial, sagittal, and coronal planes. IV contrast was administered without complication. A dose lowering technique was utilized adhering to the principles of ALARA. CT DOSE: 1201.75 mGycm FINDINGS: Lung bases: The heart is normal in size and without pericardial effusion. The lung bases are clear. Liver: The contrast-enhanced liver is normal in size, contour, and attenuation. There is no intrahepatic biliary ductal dilatation. The hepatic veins and portal veins are patent. Gallbladder: Unremarkable. Spleen: The spleen is enlarged, measuring 16.7 cm in length. Pancreas: Unremarkable. Adrenal glands: Unremarkable. Kidneys: The contrast enhanced kidneys are normal in size and without hydronephrosis. The kidneys enhance symmetrically. Abdominal vasculature: The abdominal aorta is normal in course and caliber. Bowel: There is mild sigmoid diverticulosis. There is wall thickening involving the sigmoid colon with surrounding inflammation and trace fluid. The appearance is consistent with acute diverticulitis. Small foci of intraperitoneal free air are seen adjacent to the sigmoid colon on image #[id number]. No organized fluid collection is seen to suggest abscess. No bowel obstruction is identified. The appendix is well-visualized and normal. Peritoneum: As noted above, there are small foci of intraperitoneal free air adjacent the sigmoid colon. Trace fluid is noted in the right paracolic gutter. There is a fat-containing umbilical hernia. Lymphadenopathy: None. Pelvic viscera: The bladder, prostate, and seminal vesicles are normal as imaged. Skeletal structures: No lytic or blastic lesions are seen. IMPRESSION: 1. There is mild sigmoid diverticulosis with evidence of severe acute sigmoid diverticulitis. 2. Small foci of intraperitoneal free air are seen adjacent to the sigmoid colon and indicate perforation. 3. No organized fluid collection is seen to suggest abscess. 4. Splenomegaly. 5. Additional findings as above.
[2018-08-12] MEDS: ACETAMINOPHEN 325 MG TAB PO PRN ×3 (01:03→18:04)
[2018-08-12] MEDS: metroNIDAZOLE 500 MG/100 ML BAG IV SCH ×3 (01:34→17:02)
[2018-08-12] MEDS: SODIUM CHLORIDE 0.9% 1000ML 1,000 ML IV SCH ×2 (03:50→12:08)
[2018-08-12] MEDS: CIPROFLOXACIN 400 MG/200 ML BAG IV SCH ×2 (05:31→17:03)
[2018-08-12 07:12] LABS: Basophils # (auto) 0.01 K/uL (0-0.2); Basophils % (auto) 0.1 %; Eosinophils # (auto) 0.05 K/uL (0-0.5); Eosinophils % (auto) 0.4 %; Hematocrit (blood only) 41.9 % (42-52); Hemoglobin 14.2 g/dL (14.0-18.0); Immature Granulocytes # (auto) 0.04 K/uL (0.00-0.02); Immature Granulocytes % (auto) 0.3 %; Lymphocytes # (auto) 1.21 K/uL (1.2-3.4); Lymphocytes % (auto) 8.7 %; Mean Corpuscular Hgb Conc 33.9 g/dL (32-36); Mean Corpuscular Volume 88.2 fL (80-100); Mean Platelet Volume 11.8 fL (7.4-10.4); Monocytes # (auto) 1.52 K/uL (0.11-0.59); Neutrophils % (auto) 79.5 %; Platelet Count 147 K/uL (130-400); RDW Coefficient of Variation 13.1 % (11.5-14.5); RDW Standard Deviation 42.6 fL (36.4-46.3); Red Blood Count 4.75 M/uL (4.7-6.1); White Blood Count 13.83 K/uL (4.8-10.8)
[2018-08-12 07:44] LABS: Albumin Level 3.1 gm/dl (3.4-5.0); BUN Creatinine Ratio 8.8 (10-20); Calcium 8.4 mg/dl (8.5-10.1); Creatinine Clr Calc Pharmacy 167.8 ml/min; Potassium 3.7 mmol/L (3.5-5.1)
[2018-08-12 07:48] LABS: Bilirubin Direct 0.6 mg/dl (0-0.2); Bilirubin,Total 4.6 mg/dl (0.2-1); Total Protein 6.8 gm/dl (6.4-8.2)
--- NOTE | 2018-08-12 10:07 | Surgery Progress Note ---
Date of Service August 12, 2018 Assessment & Plan (1) Perforation of sigmoid colon due to diverticulitis: 27-year-old male with second occurrence acute, uncomplicated diverticulitis requiring IV antibiotics and admission. No surgical intervention indicated at this time Continue with IV antibiotics, n.p.o. consider the clear liquids this afternoon if pain significantly improved Patient will need outpatient colonoscopy in 6-8 weeks following resolution of symptoms Patient will need follow-up to discuss potential sigmoidectomy giving history at his young age Surgery will continue to follow, call with questions or concerns Subjective 27-year-old male with uncomplicated diverticulitis. Feels slightly better this morning, still with some left lower quadrant tenderness but overall improved. He has passed some gas and having bowel movement. Physical Exam Vital Signs (Past 24 Hours): Last Vital Signs Temp 37.3 C 08/12/18 07:20 Pulse 84 08/12/18 07:20 Resp 16 08/12/18 07:20 BP 100/53 L 08/12/18 07:20 Pulse Ox 96 08/12/18 07:20 Constitutional: WD/WN, vitals as above Eyes: PERRL, conjunctivae normal, anicteric sclerae ENMT: external ear and nose normal, oropharynx normal Neck: trachea midline, no thyromegaly Respiratory: normal respiratory effort, lungs clear to auscultation Cardiovascular: RRR, no murmur, no edema Gastrointestinal (Abdomen): Inspection/Auscultation: normal bowel sounds Percussion/Palpation: + abdomen tender (Tender palpation in the left lower quadrant, no guarding. Improved) and abdomen soft; no guarding Musculoskeletal: no cyanosis or clubbing, extremities motor strength 5/5 Skin: no rashes, warm and dry Neurologic: PERRL, EOMI, accommodation nl, no face palsy, no dysarthria Psychiatric: A+Ox3, euthymic affect Lymphatic: no cervical or axillary lymphadenopathy Results & Data Laboratory Results Laboratory Results - last 24 hr 08/11/18 08/11/18 08/11/18 15:31 15:31 17:03 WBC 14.18 H RBC 5.32 Hgb 16.0 Hct 46.3 MCV 87.0 MCH 30.1 MCHC 34.6 RDW Std Deviation 41.2 RDW Coeff of Cookie 13.0 Plt Count 168 MPV 11.8 H Immature Gran % (Auto) 0.3 Neut % (Auto) 85.0 Lymph % (Auto) 6.6 [place] % (Auto) 7.7 Eos % (Auto) 0.3 Baso % (Auto) 0.1 Immature Gran # (Auto) 0.04 H Neut # (Auto) 12.07 H Lymph # (Auto) 0.93 L [place] # (Auto) 1.09 H Eos # (Auto) 0.04 Baso # (Auto) 0.01 Sodium 136 Potassium 3.8 Chloride 105 Carbon Dioxide 28 Anion Gap 3.0 BUN 10 Creatinine 0.90 Est Cr Clr Drug Dosing 188.3 Est GFR ( Amer) 133.3 Est GFR (Non-Af Amer) 115.0 BUN/Creatinine Ratio 11.5 Glucose 98 Calcium 9.1 Total Bilirubin 3.0 H Direct Bilirubin 0.5 H AST 11 L ALT 40 Alkaline Phosphatase 118 H C-Reactive Protein 4.35 H Total Protein 7.9 Albumin 3.7 Urine Color Yellow Urine Appearance Clear Urine pH 7.5 Ur Specific [place] 1.018 Urine Protein Negative Urine Glucose (UA) Negative Urine Ketones Trace H Urine Blood Negative Urine Nitrite Negative Urine Bilirubin Negative Urine Urobilinogen Negative Ur Leukocyte Esterase Negative 08/12/18 08/12/18 06:16 06:16 WBC 13.83 H RBC 4.75 Hgb 14.2 Hct 41.9 L MCV 88.2 MCH 29.9 MCHC 33.9 RDW Std Deviation 42.6 RDW Coeff of Cookie 13.1 Plt Count 147 MPV 11.8 H Immature Gran % (Auto) 0.3 Neut % (Auto) 79.5 Lymph % (Auto) 8.7 [place] % (Auto) 11.0 Eos % (Auto) 0.4 Baso % (Auto) 0.1 Immature Gran # (Auto) 0.04 H Neut # (Auto) 11.00 H Lymph # (Auto) 1.21 [place] # (Auto) 1.52 H Eos # (Auto) 0.05 Baso # (Auto) 0.01 Sodium 137 Potassium 3.7 Chloride 106 Carbon Dioxide 28 Anion Gap 3.0 BUN 9 Creatinine 1.01 Est Cr Clr Drug Dosing 167.8 Est GFR ( Amer) 116.0 Est GFR (Non-Af Amer) 100.0 BUN/Creatinine Ratio 8.8 L Glucose 97 Calcium 8.4 L Total Bilirubin 4.6 H D Direct Bilirubin 0.6 H AST 6 L ALT 27 Alkaline Phosphatase 96 C-Reactive Protein Total Protein 6.8 Albumin 3.1 L Urine Color Urine Appearance Urine pH Ur Specific [place] Urine Protein Urine Glucose (UA) Urine Ketones Urine Blood Urine Nitrite Urine Bilirubin Urine Urobilinogen Ur Leukocyte Esterase
--- NOTE | 2018-08-12 10:13 | Hospitalist Progress Note ---
Date of Service August 12, 2018 Assessment & Plan (1) Perforation of sigmoid colon due to diverticulitis: improving clinically afebrile, leukocytosis slightly better Discussed case with Dr. Leigh- Gen Surg Recommend medical management for now continue ciprofloxacin plus Flagyl IV possible clear liquids for dinner ELEVATED INDIRECT BILIRUBIN Review of records showed patient has history of increased indirect bilirubin up to 3 during admission for diverticulitis in 2017 CT abdomen and pelvis showing no biliary obstruction Tot Marcin further increased to 4.6 Alk phos normalized, AST/ALT within normal limits monitor GOUT Patient a few days ago experienced swelling of the right ankle He was placed on indomethacin 50 mg 3 times daily with improvement of symptom- hold while admitted in light of diverticulitis with perforation Allopurinol ordered 100 mg twice daily-continue while admitted HISTORY OF GERD Provide Protonix IV daily DVT prophylaxis SCDs for now in light of progressive perforation, possible surgical intervention at any time Disposition Anticipate discharge home medically stable and cleared by GI and general surgery Subjective ff up for acute diverticulitis with perforation seen resting in bed, not in distress states lower abdominal pain is slightly better today (+) flatus, no BMs no nausea would like to have some diet soon denies fever/chills no chest pain, dyspnea, palpitations, nausea no other symptoms Physical Exam Vital Signs (Past 24 Hours): Last Vital Signs Temp 37.3 C 08/12/18 07:20 Pulse 84 08/12/18 07:20 Resp 16 08/12/18 07:20 BP 100/53 L 08/12/18 07:20 Pulse Ox 96 08/12/18 07:20 Physical Exam: General- oriented x 3, not in distress, speaks in sentences with no effort or accessory muscle use Eyes- anicteric Neck- no JVD Lungs- clear breath sounds bilaterally Heart- normal rate, regular rhythm; no murmurs Abdomen- normal bowel sounds, nondistended, soft, mild tenderness middle and LLQ no RUQ tenderness Extremities- no pretibial edema, no calf tenderness Neuro- alert, oriented x 3; no gross focal neurologic deficits Skin- warm & dry Results & Data Laboratory Results Laboratory Results - last 24 hr 08/11/18 08/11/18 08/11/18 15:31 15:31 17:03 WBC 14.18 H RBC 5.32 Hgb 16.0 Hct 46.3 MCV 87.0 MCH 30.1 MCHC 34.6 RDW Std Deviation 41.2 RDW Coeff of Cookie 13.0 Plt Count 168 MPV 11.8 H Immature Gran % (Auto) 0.3 Neut % (Auto) 85.0 Lymph % (Auto) 6.6 [place] % (Auto) 7.7 Eos % (Auto) 0.3 Baso % (Auto) 0.1 Immature Gran # (Auto) 0.04 H Neut # (Auto) 12.07 H Lymph # (Auto) 0.93 L [place] # (Auto) 1.09 H Eos # (Auto) 0.04 Baso # (Auto) 0.01 Sodium 136 Potassium 3.8 Chloride 105 Carbon Dioxide 28 Anion Gap 3.0 BUN 10 Creatinine 0.90 Est Cr Clr Drug Dosing 188.3 Est GFR ( Amer) 133.3 Est GFR (Non-Af Amer) 115.0 BUN/Creatinine Ratio 11.5 Glucose 98 Calcium 9.1 Total Bilirubin 3.0 H Direct Bilirubin 0.5 H AST 11 L ALT 40 Alkaline Phosphatase 118 H C-Reactive Protein 4.35 H Total Protein 7.9 Albumin 3.7 Urine Color Yellow Urine Appearance Clear Urine pH 7.5 Ur Specific [place] 1.018 Urine Protein Negative Urine Glucose (UA) Negative Urine Ketones Trace H Urine Blood Negative Urine Nitrite Negative Urine Bilirubin Negative Urine Urobilinogen Negative Ur Leukocyte Esterase Negative 08/12/18 08/12/18 06:16 06:16 WBC 13.83 H RBC 4.75 Hgb 14.2 Hct 41.9 L MCV 88.2 MCH 29.9 MCHC 33.9 RDW Std Deviation 42.6 RDW Coeff of Cookie 13.1 Plt Count 147 MPV 11.8 H Immature Gran % (Auto) 0.3 Neut % (Auto) 79.5 Lymph % (Auto) 8.7 [place] % (Auto) 11.0 Eos % (Auto) 0.4 Baso % (Auto) 0.1 Immature Gran # (Auto) 0.04 H Neut # (Auto) 11.00 H Lymph # (Auto) 1.21 [place] # (Auto) 1.52 H Eos # (Auto) 0.05 Baso # (Auto) 0.01 Sodium 137 Potassium 3.7 Chloride 106 Carbon Dioxide 28 Anion Gap 3.0 BUN 9 Creatinine 1.01 Est Cr Clr Drug Dosing 167.8 Est GFR ( Amer) 116.0 Est GFR (Non-Af Amer) 100.0 BUN/Creatinine Ratio 8.8 L Glucose 97 Calcium 8.4 L Total Bilirubin 4.6 H D Direct Bilirubin 0.6 H AST 6 L ALT 27 Alkaline Phosphatase 96 C-Reactive Protein Total Protein 6.8 Albumin 3.1 L Urine Color Urine Appearance Urine pH Ur Specific [place] Urine Protein Urine Glucose (UA) Urine Ketones Urine Blood Urine Nitrite Urine Bilirubin Urine Urobilinogen Ur Leukocyte Esterase
--- NOTE | 2018-08-12 13:12 | Gastrointestinal Consultation ---
Date of Consultation August 12, 2018 Assessment & Plan (1) Indirect hyperbilirubinemia: Chronic indirect hyperbilirubinemia with normal AST/ALT, normal direct bili, normal liver and biliary tree on CT scan, no evidence of hemolysis, likely related to Gilbert's disease. This typically worsens with fasting and stress/infection. No further work up needed, suggest repeating LFTs 3 hrs after eating a full meal once he is back on diet. Recall GI if any questions or concerns. History of Present Illness Attending Physician: Giovanny Rosa MD 27 years old male patient presented to the hospital with left lower quadrant abdominal pain debbie few days, had similar pain 2 weeks ago that resolved spontaneously. He had Hx of recurrent divirticulitis in the past. This admission his CT scan showed acute sigmoid diverticulitis with peridiverticular free air ? perforation. Seen by surgery and being treated conservatively. He feels better, pain is tolerable, no rectal bleeding or fever. WBC trending down. GI consulted for indirect hyperbilirubinemia. Reviewed his records with [facility] and he has similar LFT pattern in 2016 suggestive of Gilbert's disease. He had a colonoscopy in 2017 which showed nonspecific proctitis. Allergies Allergy/AdvReac Type Severity Reaction Status Date / Time amoxicillin Allergy Unknown unknown Verified 08/11/18 15:52 Cephalosporins Allergy Unknown unknown Verified 08/11/18 15:52 Home Medications Home Medications Medication Instructions Recorded Confirmed Type allopurinol [Zyloprim] 100 mg PO BID 08/11/18 08/11/18 History ibuprofen [IBU] 600 mg PO TID PRN 08/11/18 08/11/18 History indomethacin 50 mg PO TID 08/11/18 08/11/18 History omeprazole 20 mg PO DAILY 08/11/18 08/11/18 History Patient History Medical History Diverticulitis (Resolved) GERD (gastroesophageal reflux disease) (Chronic) Family History Other No significant family history Social History Preferred Language: [place]serratian Communication Ability: Effective District Associate Judge Required: No Beliefs That Will Affect Care: None Current Living Situation: Alone current occupational status: employed Other Information That Helps Us Care for You: No Feels Safe at Home: Yes Safety Concerns: Feels Safe At This Time Smoking Status: Never smoker Hx Alcohol Use: Yes Hx Substance Use: No Review of Systems Constitutional: no fever, no chills, no fatigue and no weight loss Eyes: no eye pain and no worsening vision Ear, Nose, Mouth, Throat: no tinnitus, no dizziness, no nasal discharge and no epistaxis Respiratory: no cough, no dyspnea, no dyspnea on exertion and no wheezing Cardiovascular: no chest pain, no orthopnea, no palpitations and no edema Gastrointestinal: as per Subjective / HPI Musculoskeletal: no stiffness and no myalgia Neurologic: no localized weakness, no paralysis, no tremor(s) and no headache(s) Endocrine: no polydipsia and no polyuria Hematologic / Lymphatic: no easy bleeding and no night sweats Physical Exam Vital Signs (Past 24 Hours): Last Vital Signs Temp 37.3 C 08/12/18 07:20 Pulse 84 08/12/18 07:20 Resp 16 08/12/18 07:20 BP 100/53 L 08/12/18 07:20 Pulse Ox 96 08/12/18 07:20 Results & Data Laboratory Results Laboratory Results - last 24 hr 08/11/18 08/11/18 08/11/18 15:31 15:31 17:03 WBC 14.18 H RBC 5.32 Hgb 16.0 Hct 46.3 MCV 87.0 MCH 30.1 MCHC 34.6 RDW Std Deviation 41.2 RDW Coeff of Cookie 13.0 Plt Count 168 MPV 11.8 H Immature Gran % (Auto) 0.3 Neut % (Auto) 85.0 Lymph % (Auto) 6.6 [place] % (Auto) 7.7 Eos % (Auto) 0.3 Baso % (Auto) 0.1 Immature Gran # (Auto) 0.04 H Neut # (Auto) 12.07 H Lymph # (Auto) 0.93 L [place] # (Auto) 1.09 H Eos # (Auto) 0.04 Baso # (Auto) 0.01 Sodium 136 Potassium 3.8 Chloride 105 Carbon Dioxide 28 Anion Gap 3.0 BUN 10 Creatinine 0.90 Est Cr Clr Drug Dosing 188.3 Est GFR ( Amer) 133.3 Est GFR (Non-Af Amer) 115.0 BUN/Creatinine Ratio 11.5 Glucose 98 Calcium 9.1 Total Bilirubin 3.0 H Direct Bilirubin 0.5 H AST 11 L ALT 40 Alkaline Phosphatase 118 H C-Reactive Protein 4.35 H Total Protein 7.9 Albumin 3.7 Urine Color Yellow Urine Appearance Clear Urine pH 7.5 Ur Specific [place] 1.018 Urine Protein Negative Urine Glucose (UA) Negative Urine Ketones Trace H Urine Blood Negative Urine Nitrite Negative Urine Bilirubin Negative Urine Urobilinogen Negative Ur Leukocyte Esterase Negative 08/12/18 08/12/18 06:16 06:16 WBC 13.83 H RBC 4.75 Hgb 14.2 Hct 41.9 L MCV 88.2 MCH 29.9 MCHC 33.9 RDW Std Deviation 42.6 RDW Coeff of Cookie 13.1 Plt Count 147 MPV 11.8 H Immature Gran % (Auto) 0.3 Neut % (Auto) 79.5 Lymph % (Auto) 8.7 [place] % (Auto) 11.0 Eos % (Auto) 0.4 Baso % (Auto) 0.1 Immature Gran # (Auto) 0.04 H Neut # (Auto) 11.00 H Lymph # (Auto) 1.21 [place] # (Auto) 1.52 H Eos # (Auto) 0.05 Baso # (Auto) 0.01 Sodium 137 Potassium 3.7 Chloride 106 Carbon Dioxide 28 Anion Gap 3.0 BUN 9 Creatinine 1.01 Est Cr Clr Drug Dosing 167.8 Est GFR ( Amer) 116.0 Est GFR (Non-Af Amer) 100.0 BUN/Creatinine Ratio 8.8 L Glucose 97 Calcium 8.4 L Total Bilirubin 4.6 H D Direct Bilirubin 0.6 H AST 6 L ALT 27 Alkaline Phosphatase 96 C-Reactive Protein Total Protein 6.8 Albumin 3.1 L Urine Color Urine Appearance Urine pH Ur Specific [place] Urine Protein Urine Glucose (UA) Urine Ketones Urine Blood Urine Nitrite Urine Bilirubin Urine Urobilinogen Ur Leukocyte Esterase
--- NOTE | 2018-08-12 19:01 | CT Scan Report ---
CT abd pelvis wo con CT DOSE: 1191.39 mGycm HISTORY: Pain. Fever. lower abdominal pain, ff up diverticulitis w/perf TECHNIQUE: Multiaxial CT images of the abdomen and pelvis were performed without contrast. A dose lo wering technique was utilized adhering to the principles of ALARA. COMPARISON STUDY: 08/11/2018 FINDINGS: Lung bases are clear. Liver spleen and pancreas are unremarkable. The kidneys are considere d negative for calcification or hydronephrosis. The abdominal bowel pattern is nonobstructive. The pelvis is again remarkable for acute sigmoid diverticulitis at its proximal to mid aspect. There is considerable pericolonic infiltrative change with a slight increase in extraluminal air. The air i s localized in the pericolonic region. This again is consistent with that of a focal perforation. The re is no evidence for drainable abscess or collection. There is trace amount of reactive free fluid w ithin the lower right paracolic gutter similar compared to the prior study. IMPRESSION: 1. Proximal to mid sigmoid acute diverticulitis with slightly progressive pericolonic infiltrative ch galen. Stable colonic wall edematous change/thickening. 2. Slight increase in extraluminal air localized again to the sigmoid pericolonic fat. 3. No evidence for drainable abscess or collection. 4. Trace amount of reactive free fluid within the right paracolic gutter considered unchanged from e prior study. 5. Study is otherwise identical to the examination of 08/11/2018 The above report was generated using voice recognition software. It may contain grammatical, syntax or spelling errors. Electronically signed by: Jacinto Nunez M.D. 08/12/2018 7:00 PM
[2018-08-12] MEDS: ACETAMINOPHEN 1,000 MG/100 ML VIAL IV PRN (19:59)
[2018-08-12] MEDS: D5NSS + 20MEQ KCL 20 MEQ/1,000 ML BAG IV SCH (20:32)
[2018-08-12] MEDS ORDERED: ERTAPENEM SODIUM 1,000 MG in SYRINGE 0 ML IV STA (21:49)
--- NOTE | 2018-08-12 21:51 | History & Physical Report ---
Date of Service August 12, 2018 History of Present Illness Primary Care Provider: Darwin Mark MD Allergies Allergy/AdvReac Type Severity Reaction Status Date / Time amoxicillin Allergy Unknown unknown Verified 08/11/18 15:52 Cephalosporins Allergy Unknown unknown Verified 08/11/18 15:52 Home Medications Home Medications Medication Instructions Recorded Confirmed Type allopurinol [Zyloprim] 100 mg PO BID 08/11/18 08/11/18 History ibuprofen [IBU] 600 mg PO TID PRN 08/11/18 08/11/18 History indomethacin 50 mg PO TID 08/11/18 08/11/18 History omeprazole 20 mg PO DAILY 08/11/18 08/11/18 History Past Med/Surg History Medical History Diverticulitis (Resolved) GERD (gastroesophageal reflux disease) (Chronic) Family History Other No significant family history Social History Preferred Language: Yoruba Communication Ability: Effective Knife Finisher Required: No Beliefs That Will Affect Care: None Current Living Situation: Alone current occupational status: employed Other Information That Helps Us Care for You: No Feels Safe at Home: Yes Safety Concerns: Feels Safe At This Time Smoking Status: Never smoker Hx Alcohol Use: Yes Hx Substance Use: No Physical Exam Vital Signs (Past 24 Hours): Last Vital Signs Temp 37.9 C H 08/12/18 18:08 Pulse 95 H 08/12/18 18:08 Resp 16 08/12/18 18:08 BP 129/76 08/12/18 18:08 Pulse Ox 97 08/12/18 18:08 Code Status & VTE Plan VTE Prophylaxis Plan VTE Prophylaxis will be ordered: Yes
[2018-08-12] MEDS ORDERED: ERTAPENEM CONSULT ACTIVE PRN (21:55)
[2018-08-12] MEDS ORDERED: IMIPENEM/CILASTATIN CONSULT ACTIVE PRN (22:07)
[2018-08-12] MEDS: IMIPENEM/CILASTATIN SODIUM 500 MG in DEXTROSE 5% 100 ML IV SCH (22:36)
--- NOTE | 2018-08-13 04:31 | Hospitalist Progress Note ---
Date of Service August 13, 2018 Subjective Patient Cipro/Flagyl switched to Imipenem with note of worsening complicated diverticulitis on repeat CT. Physical Exam Vital Signs (Past 24 Hours): Last Vital Signs Temp 36.9 C 08/12/18 23:30 Pulse 82 08/12/18 23:30 Resp 16 08/12/18 23:30 BP 133/79 08/12/18 23:30 Pulse Ox 97 08/12/18 23:30
[2018-08-13] MEDS: D5NSS + 20MEQ KCL 20 MEQ/1,000 ML BAG IV SCH ×3 (04:44→23:21)
[2018-08-13] MEDS: IMIPENEM/CILASTATIN SODIUM 500 MG in DEXTROSE 5% 100 ML IV SCH ×2 (04:47→09:32)
[2018-08-13 06:36] LABS: Basophils # (auto) 0.01 K/uL (0-0.2); Basophils % (auto) 0.1 %; Eosinophils # (auto) 0.05 K/uL (0-0.5); Eosinophils % (auto) 0.4 %; Hematocrit (blood only) 40.9 % (42-52); Hemoglobin 14.1 g/dL (14.0-18.0); Immature Granulocytes # (auto) 0.04 K/uL (0.00-0.02); Immature Granulocytes % (auto) 0.3 %; Lymphocytes # (auto) 1.14 K/uL (1.2-3.4); Lymphocytes % (auto) 8.1 %; Mean Corpuscular Hgb Conc 34.5 g/dL (32-36); Mean Platelet Volume 12.1 fL (7.4-10.4); Monocytes # (auto) 1.16 K/uL (0.11-0.59); Monocytes % (auto) 8.3 %; Neutrophils # (auto) 11.61 K/uL (1.4-6.5); Neutrophils % (auto) 82.8 %; Platelet Count 149 K/uL (130-400); RDW Standard Deviation 41.9 fL (36.4-46.3); White Blood Count 14.01 K/uL (4.8-10.8)
[2018-08-13 06:55] LABS: Albumin Level 2.8 gm/dl (3.4-5.0); BUN Creatinine Ratio 9.1 (10-20); Bilirubin Direct 1.1 mg/dl (0-0.2); Calcium 8.7 mg/dl (8.5-10.1); Creatinine Clr Calc Pharmacy 225.9 ml/min; Est GFR (African American) 143.7; Potassium 3.5 mmol/L (3.5-5.1)
[2018-08-13 06:57] LABS: Bilirubin,Total 4.5 mg/dl (0.2-1)
[2018-08-13] MEDS: ACETAMINOPHEN 1,000 MG/100 ML VIAL IV PRN ×2 (08:03→16:17)
--- NOTE | 2018-08-13 10:55 | Infectious Disease Consult ---
Date of Consultation August 13, 2018 Assessment & Plan (1) Perforation of sigmoid colon due to diverticulitis: will continue abx for now, will change to ertapenm for ease of once daily administation. will liekly require 14 days abx. check blood cultures as well. follow response. History of Present Illness Attending Physician: Sudeep Pond MD pt admitted with abd pain x [address] abd in ER revealed sigmoid diverticulitis with small perforation and no abscess, started on cipro and flagyl. Had increased pain on 08/12 -ct repeated and revealed worsening infiltrative changes and free air, again no abscess noted. Surgery and GI following, no plan for surgery at this time, npo. Abx changed to Imipenem yesterday and now pt is feeling much better. Still with some abd pain but overall improved. tmax last night 37.9, currently afebrile. Denies rigors. Hungry. 1 episode of vomiting this am after brushing teeth. Denies cp, sob, cough. no nausea. toleraitng abx. ID consulted for imipenem approval. wbc 14, creat 0.7, UA negative, no cultures done. Allergies Allergy/AdvReac Type Severity Reaction Status Date / Time amoxicillin Allergy Unknown unknown Verified 08/11/18 15:52 Cephalosporins Allergy Unknown unknown Verified 08/11/18 15:52 Home Medications Home Medications Medication Instructions Recorded Confirmed Type allopurinol [Zyloprim] 100 mg PO BID 08/11/18 08/11/18 History ibuprofen [IBU] 600 mg PO TID PRN 08/11/18 08/11/18 History indomethacin 50 mg PO TID 08/11/18 08/11/18 History omeprazole 20 mg PO DAILY 08/11/18 08/11/18 History Patient History Medical History Diverticulitis (Resolved) GERD (gastroesophageal reflux disease) (Chronic) Family History Other No significant family history Social History Preferred Language: [place]ian Communication Ability: Effective Chiller Operator Required: No Beliefs That Will Affect Care: None Current Living Situation: Alone current occupational status: employed Other Information That Helps Us Care for You: No Feels Safe at Home: Yes Safety Concerns: Feels Safe At This Time Smoking Status: Never smoker Hx Alcohol Use: Yes Hx Substance Use: No Review of Systems all remaining ros reviewed and are negative Physical Exam Vital Signs (Past 24 Hours): Last Vital Signs Temp 37.6 C H 08/13/18 07:00 Pulse 88 08/13/18 07:00 Resp 16 08/13/18 07:00 BP 136/70 08/13/18 07:00 Pulse Ox 95 08/13/18 07:00 Constitutional: WD/WN, vitals as above Eyes: PERRL, conjunctivae normal, anicteric sclerae ENMT: external ear and nose normal, oropharynx normal Neck: normal visual inspection Respiratory: normal respiratory effort, lungs clear to auscultation Cardiovascular: RRR, no murmur, no edema Gastrointestinal (Abdomen): normal bowel sounds, soft, nontender, no hepatosplenomegaly Inspection/Auscultation: abdomen normal to inspection; abdomen not distended Percussion/Palpation: abdomen soft; abdomen nontender, no guarding and abdomen not rigid Musculoskeletal: no cyanosis or clubbing, extremities motor strength 5/5 Skin: no rashes, warm and dry Psychiatric: A+Ox3, euthymic affect
--- NOTE | 2018-08-13 11:59 | Surgery Progress Note ---
Date of Service August 13, 2018 Assessment & Plan (1) Perforation of sigmoid colon due to diverticulitis: 08/13/2018 27-year-old male with second occurrence acute, uncomplicated diverticulitis requiring IV antibiotics and admission. Patient seen and examined with Dr. Leigh. Pt backed down to NPO after increase in abdominal pain and slightly worsening repeat CT scan. Today, patient's abdomen is "tender," but certainly no where as painful as it was at admission. ID consult reviewed- abx management. No emergent surgical intervention indicated. Can hopefully get patient through this episode without need for surgical intervention. Per GI- plan for outpatient colonoscopy in 8 weeks. May need surgical resection in future. All questions answered. 08/12/2018 27-year-old male with second occurrence acute, uncomplicated diverticulitis requiring IV antibiotics and admission. No surgical intervention indicated at this time Continue with IV antibiotics, n.p.o. consider the clear liquids this afternoon if pain significantly improved Patient will need outpatient colonoscopy in 6-8 weeks following resolution of symptoms Patient will need follow-up to discuss potential sigmoidectomy giving history at his young age Surgery will continue to follow, call with questions or concerns Supervising Physician Co-Signing Physician Notes pnt s&e, agree with above. increase pain yest, non con CT with slightly more air and inflammation, no sig change. Feels better this morning. mildly ttp in LLQ, significant improvement from yest and on admission. wbc stable. Keep npo until wbc downtrending. High risk for abscess development, cont iv abx. no surgical intervention at this time. needs scope in 6-8 weeks, follow up with me after to discuss elective resection. surgery will follow Subjective Patient resting comfortably in bed Reports that abdomen is tender, but denies pain. Reports that he is hungry. He is passing flatus and having loose BMs. Per patient and provider notes, patient had worsening abdominal pain yesterday late afternoon. Repeat CT scan was ordered and showed: 1. Proximal to mid sigmoid acute diverticulitis with slightly progressive pericolonic infiltrative change. Stable colonic wall edematous change/thickening. 2. Slight increase in extraluminal air localized again to the sigmoid pericolonic fat. Physical Exam Vital Signs (Past 24 Hours): Last Vital Signs Temp 37.6 C H 08/13/18 07:00 Pulse 88 08/13/18 07:00 Resp 16 08/13/18 07:00 BP 136/70 08/13/18 07:00 Pulse Ox 95 08/13/18 07:00 Gastrointestinal (Abdomen): Percussion/Palpation: + abdomen tender (mildly tender with palpation, LLQ ) and abdomen soft
--- NOTE | 2018-08-13 15:16 | Hospitalist Progress Note ---
Date of Service August 13, 2018 Assessment & Plan (1) Perforation of sigmoid colon due to diverticulitis: Condition got worse following oral food yesterday Repeat CT of the abdomen did show questionable progression of the disease Improving clinically today Afebrile, leukocytosis slightly better Appreciate surgery input and recommendation; for conservative management Appreciate ID input and recommendation Was on intravenous ciprofloxacin plus Flagyl IV Has been changed to dependent We will continue n.p.o. for tonight and repeat blood culture and blood count tomorrow ELEVATED INDIRECT BILIRUBIN Review of records showed patient has history of increased indirect bilirubin up to 3 during admission for diverticulitis in 2016 CT abdomen and pelvis showing no biliary obstruction Tot Marcin further increased to 4.6 Alk phos normalized, AST/ALT within normal limits monitor GOUT Patient a few days ago experienced swelling of the right ankle He was placed on indomethacin 50 mg 3 times daily with improvement of symptom- hold while admitted in light of diverticulitis with perforation Allopurinol ordered 100 mg twice daily-continue while admitted No acute symptoms of gout HISTORY OF GERD Provide Protonix IV daily DVT prophylaxis SCDs for now in light of progressive perforation, possible surgical intervention at any time Disposition Anticipate discharge home medically stable and cleared by GI and general surgery Subjective 08/13 The patient was seen and examined the medical unit He was admitted with acute diverticulitis with possible perforation He has been getting intravenous antibiotic and getting better He denies any symptoms of fever and no chills today the abdominal pain is resolved Physical Exam Vital Signs (Past 24 Hours): Last Vital Signs Temp 37.6 C H 08/13/18 07:00 Pulse 88 08/13/18 07:00 Resp 16 08/13/18 07:00 BP 136/70 08/13/18 07:00 Pulse Ox 95 08/13/18 07:00 Physical Exam: No apparent distress at rest Constitutional: WD/WN, vitals as above well developed Eyes: PERRL, conjunctivae normal, anicteric sclerae ENMT: external ear and nose normal, oropharynx normal Neck: trachea midline, no thyromegaly Respiratory: normal respiratory effort, lungs clear to auscultation Cardiovascular: Rate/Rhythm: regular rate and regular rhythm Heart Sounds: normal S1 and normal S2 Gastrointestinal (Abdomen): Inspection/Auscultation: abdomen normal to inspection and normal bowel sounds Percussion/Palpation: abdomen soft; abdomen nontender Musculoskeletal: No acute arthritis in any joints Neurologic: Alert, awake and oriented x3 Results & Data Laboratory Results Short CBC 08/13/18 Range/Units 05:44 WBC 14.01 H (4.8-10.8) K/uL Hgb 14.1 (14.0-18.0) g/dL Hct 40.9 L (42-52) % Plt Count 149 (130-400) K/uL BMP 08/13/18 05:44 Sodium 137 Potassium 3.5 Chloride 105 Carbon Dioxide 24 BUN 7 Creatinine 0.75 Glucose 99 Calcium 8.7 Liver Function 08/13/18 Range/Units 05:44 Total Bilirubin 4.5 H (0.2-1) mg/dl Direct Bilirubin 1.1 H D (0-0.2) mg/dl AST 11 L (15-37) U/L ALT 24 (12-78) U/L Alkaline Phosphatase 103 (45-117) U/L Albumin 2.8 L (3.4-5.0) gm/dl Medications Administered Current Inpatient Medications Acetaminophen (Ofirmev) 1,000 mg in 100 mls @ 400 mls/hr IV Q8H PRN PRN Reason: Pain Stop: 09/11/18 18:26 Last Infusion: 08/13/18 08:27 Dose: Infused Documented by: Potassium Chloride/Dextrose/Sod Cl (D5nss + 20meq Kcl) 20 meq in 1,000 mls @ 125 mls/hr IV .Q8H MONY Stop: 09/11/18 19:44 Last Admin: 08/13/18 14:51 Dose: 125 mls/hr Documented by: Ertapenem 1,000 mg/ Sodium (Chloride) 60 mls @ 100 mls/hr IV Q24H MONY Stop: 08/23/18 15:59 Ioversol (Optiray 320 100ml) 94 ml IV ONCE PRN PRN Reason: Interaction Checking Stop: 08/15/18 17:18 Last Admin: 08/11/18 17:20 Dose: 94 ml Documented by: Ondansetron HCl (Zofran) 4 mg IV Q4H PRN PRN Reason: Nausea And Vomiting Stop: 09/10/18 19:22
[2018-08-13] MEDS: ERTAPENEM SODIUM 1,000 MG in SODIUM CHLORIDE 0.9% 50 ML IV SCH (15:28)
[2018-08-13] MEDS ORDERED: Nursing to Pharmacy Communication ONE (21:29)
[2018-08-14 06:50] LABS: Basophils # (auto) 0.02 K/uL (0-0.2); Basophils % (auto) 0.2 %; Eosinophils # (auto) 0.43 K/uL (0-0.5); Eosinophils % (auto) 3.8 %; Hematocrit (blood only) 40.7 % (42-52); Hemoglobin 13.7 g/dL (14.0-18.0); Immature Granulocytes # (auto) 0.02 K/uL (0.00-0.02); Immature Granulocytes % (auto) 0.2 %; Lymphocytes # (auto) 1.46 K/uL (1.2-3.4); Mean Corpuscular Hgb Conc 33.7 g/dL (32-36); Mean Corpuscular Volume 87.7 fL (80-100); Monocytes # (auto) 0.85 K/uL (0.11-0.59); Monocytes % (auto) 7.6 %; Neutrophils # (auto) 8.45 K/uL (1.4-6.5); Neutrophils % (auto) 75.2 %; Platelet Count 157 K/uL (130-400); RDW Coefficient of Variation 13.1 % (11.5-14.5); Red Blood Count 4.64 M/uL (4.7-6.1); White Blood Count 11.23 K/uL (4.8-10.8)
[2018-08-14 07:16] LABS: Albumin Level 2.6 gm/dl (3.4-5.0); BUN Creatinine Ratio 10.8 (10-20); Bilirubin Direct 0.8 mg/dl (0-0.2); Calcium 8.6 mg/dl (8.5-10.1); Creatinine Clr Calc Pharmacy 235.4 ml/min; Est GFR (African American) 146.1; Est GFR (Non-African American) 126.1; Potassium 3.7 mmol/L (3.5-5.1)
[2018-08-14 07:22] LABS: Bilirubin,Total 2.4 mg/dl (0.2-1); Total Protein 6.7 gm/dl (6.4-8.2)
[2018-08-14] MEDS: D5NSS + 20MEQ KCL 20 MEQ/1,000 ML BAG IV SCH ×3 (07:57→23:51)
--- NOTE | 2018-08-14 09:03 | Surgery Progress Note ---
Date of Service August 14, 2018 Assessment & Plan (1) Perforation of sigmoid colon due to diverticulitis: 08/14/2018 27-year-old male with second occurrence acute, uncomplicated diverticulitis requiring IV antibiotics and admission. Patient seen and examined with Dr. Leigh. Pt continues to improve- abdominal pain nearly resolved. WBC trending down. No emergent surgical intervention indicated. Can hopefully get patient through this episode without need for surgical intervention. Per GI- plan for outpatient colonoscopy in 8 weeks. May need surgical resection in future. All questions answered. 08/13/2018 27-year-old male with second occurrence acute, uncomplicated diverticulitis requiring IV antibiotics and admission. Patient seen and examined with Dr. Leigh. Pt backed down to NPO after increase in abdominal pain and slightly worsening repeat CT scan. Today, patient's abdomen is "tender," but certainly no where as painful as it was at admission. ID consult reviewed- abx management. No emergent surgical intervention indicated. Can hopefully get patient through this episode without need for surgical intervention. Per GI- plan for outpatient colonoscopy in 8 weeks. May need surgical resection in future. All questions answered. 08/12/2018 27-year-old male with second occurrence acute, uncomplicated diverticulitis requiring IV antibiotics and admission. No surgical intervention indicated at this time Continue with IV antibiotics, n.p.o. consider the clear liquids this afternoon if pain significantly improved Patient will need outpatient colonoscopy in 6-8 weeks following resolution of symptoms Patient will need follow-up to discuss potential sigmoidectomy giving history at his young age Surgery will continue to follow, call with questions or concerns Subjective Resting in bed- reports abdominal pain continues to improve. Denies nausea or vomiting. Currently NPO Reports passing large amounts of flatus, loose bowel movements. Physical Exam Vital Signs (Past 24 Hours): Last Vital Signs Temp 36.7 C 08/14/18 07:25 Pulse 69 08/14/18 07:25 Resp 18 08/14/18 07:25 BP 141/73 H 08/14/18 07:25 Pulse Ox 97 08/14/18 07:25 Gastrointestinal (Abdomen): Percussion/Palpation: + abdomen tender (mildly tender with palpation, LLQ ) and abdomen soft
[2018-08-14] MEDS ORDERED: KETOROLAC 30 MG/ML VIAL ONE (10:28)
[2018-08-14] MEDS: ACETAMINOPHEN 1,000 MG/100 ML VIAL IV PRN ×2 (11:08→20:09)
--- NOTE | 2018-08-14 15:22 | Hospitalist Progress Note ---
Date of Service August 14, 2018 Assessment & Plan (1) Perforation of sigmoid colon due to diverticulitis: Condition got worse following oral food yesterday Repeat CT of the abdomen did show questionable progression of the disease Improving clinically today Afebrile, leukocytosis slightly better Appreciate surgery input and recommendation; for conservative management Appreciate ID input and recommendation Was on intravenous ciprofloxacin plus Flagyl IV He has been on ertapenem now Appreciate ID input and recommendation Blood culture has been pending and white cell count has been improving Clinically stable and will continue n.p.o. for tonight ELEVATED INDIRECT BILIRUBIN Review of records showed patient has history of increased indirect bilirubin up to 3 during admission for diverticulitis in 2017 CT abdomen and pelvis showing no biliary obstruction Tot Marcin further increased to 4.6 Alk phos normalized, AST/ALT within normal limits monitor GOUT Patient a few days ago experienced swelling of the right ankle He was placed on indomethacin 50 mg 3 times daily with improvement of symptom- hold while admitted in light of diverticulitis with perforation Allopurinol ordered 100 mg twice daily-continue while admitted No acute symptoms of gout HISTORY OF GERD Provide Protonix IV daily DVT prophylaxis SCDs for now in light of progressive perforation, possible surgical intervention at any time Disposition Anticipate discharge home medically stable and cleared by GI and general surgery No surgical intervention Subjective 08/13 The patient was seen and examined the medical unit He was admitted with acute diverticulitis with possible perforation He has been getting intravenous antibiotic and getting better He denies any symptoms of fever and no chills today the abdominal pain is resolved 08/14 The patient was seen and examined in medical floor He has been complaining of lower abdominal pain His bowels have been loose but denies any vomiting No fever and/or chills Physical Exam Vital Signs (Past 24 Hours): Last Vital Signs Temp 37.0 C 08/14/18 14:52 Pulse 69 08/14/18 14:52 Resp 18 08/14/18 14:52 BP 138/74 08/14/18 14:52 Pulse Ox 97 08/14/18 14:52 Physical Exam: No apparent distress at rest Constitutional: WD/WN, vitals as above well developed Eyes: PERRL, conjunctivae normal, anicteric sclerae ENMT: external ear and nose normal, oropharynx normal Neck: trachea midline, no thyromegaly Respiratory: normal respiratory effort, lungs clear to auscultation Cardiovascular: Rate/Rhythm: regular rate and regular rhythm Heart Sounds: normal S1 and normal S2 Gastrointestinal (Abdomen): Inspection/Auscultation: abdomen normal to inspection and normal bowel sounds Percussion/Palpation: abdomen soft; abdomen nontender Neurologic: PERRL, EOMI, accommodation nl, no face palsy, no dysarthria Results & Data Laboratory Results Short CBC 08/14/18 Range/Units 06:16 WBC 11.23 H (4.8-10.8) K/uL Hgb 13.7 L (14.0-18.0) g/dL Hct 40.7 L (42-52) % Plt Count 157 (130-400) K/uL BMP 08/14/18 06:16 Sodium 140 Potassium 3.7 Chloride 109 H Carbon Dioxide 25 BUN 8 Creatinine 0.72 Glucose 89 Calcium 8.6 Liver Function 08/14/18 Range/Units 06:16 Total Bilirubin 2.4 H (0.2-1) mg/dl Direct Bilirubin 0.8 H (0-0.2) mg/dl AST 9 L (15-37) U/L ALT 21 (12-78) U/L Alkaline Phosphatase 106 (45-117) U/L Albumin 2.6 L (3.4-5.0) gm/dl Medications Administered Current Inpatient Medications Acetaminophen (Ofirmev) 1,000 mg in 100 mls @ 400 mls/hr IV Q8H PRN PRN Reason: Pain Stop: 09/11/18 18:26 Last Infusion: 08/14/18 11:30 Dose: Infused Documented by: Potassium Chloride/Dextrose/Sod Cl (D5nss + 20meq Kcl) 20 meq in 1,000 mls @ 125 mls/hr IV .Q8H MONY Stop: 09/11/18 19:44 Last Admin: 08/14/18 07:57 Dose: 125 mls/hr Documented by: Ertapenem 1,000 mg/ Sodium (Chloride) 60 mls @ 100 mls/hr IV Q24H MONY Stop: 08/23/18 15:59 Last Infusion: 08/13/18 16:14 Dose: Infused Documented by: Ioversol (Optiray 320 100ml) 94 ml IV ONCE PRN PRN Reason: Interaction Checking Stop: 08/15/18 17:18 Last Admin: 08/11/18 17:20 Dose: 94 ml Documented by: Ketorolac Tromethamine (Toradol) 30 mg IV Q6H PRN PRN Reason: Pain Stop: 08/19/18 10:25 Ondansetron HCl (Zofran) 4 mg IV Q4H PRN PRN Reason: Nausea And Vomiting Stop: 09/10/18 19:22
[2018-08-14] MEDS: KETOROLAC 30 MG/ML VIAL IV PRN (15:39)
[2018-08-14] MEDS ORDERED: HYDROmorphone INJ 0.5 MG/0.5 ML SYR ONE (15:56)
[2018-08-14] MEDS: ERTAPENEM SODIUM 1,000 MG in SODIUM CHLORIDE 0.9% 50 ML IV SCH (16:56)
[2018-08-14] MEDS: HYDROmorphone INJ 0.5 MG/0.5 ML SYR IV PRN ×2 (19:11→23:50)
[2018-08-14 21:11] LABS: Basophils # (auto) 0.02 K/uL (0-0.2); Basophils % (auto) 0.2 %; Eosinophils % (auto) 1.7 %; Hematocrit (blood only) 41.3 % (42-52); Immature Granulocytes # (auto) 0.07 K/uL (0.00-0.02); Immature Granulocytes % (auto) 0.6 %; Lymphocytes # (auto) 0.83 K/uL (1.2-3.4); Lymphocytes % (auto) 7.1 %; Mean Corpuscular Hgb Conc 33.9 g/dL (32-36); Mean Corpuscular Volume 85.7 fL (80-100); Mean Platelet Volume 11.5 fL (7.4-10.4); Monocytes # (auto) 1.02 K/uL (0.11-0.59); Monocytes % (auto) 8.8 %; Neutrophils # (auto) 9.47 K/uL (1.4-6.5); Neutrophils % (auto) 81.6 %; Platelet Count 162 K/uL (130-400); RDW Coefficient of Variation 12.9 % (11.5-14.5); RDW Standard Deviation 40.4 fL (36.4-46.3); Red Blood Count 4.82 M/uL (4.7-6.1); White Blood Count 11.61 K/uL (4.8-10.8)
[2018-08-15] MEDS: KETOROLAC 30 MG/ML VIAL IV PRN ×2 (02:06→07:59)
[2018-08-15] MEDS ORDERED: HYDROmorphone INJ 1 MG/ML SYRINGE IV STA (02:33)
[2018-08-15] MEDS ORDERED: HYDROmorphone INJ 1 MG/ML SYRINGE IV PRN ×2 (03:00→12:04)
[2018-08-15] MEDS ORDERED: IOVERSOL 100ml IV PRN (03:02)
--- NOTE | 2018-08-15 03:25 | Hospitalist Progress Note ---
Date of Service August 15, 2018 Subjective Aware by RN of worsening lower abdominal pain. No fever, no chills. Repeat CT abdomen pelvis initial read: Worsening sigmoid diverticulitis with increasing pericolic inflammatory changes. Increasing sigmoid mesentery free air with developing diverticular abscess measuring 5.7 x 3.4 x 3.9 cm. No bowel obstruction. AP Complicated diverticulitis Progressive disease No sepsis for now Continue bowel rest Switch Ertapenem to IV imipenem Dr. Da Silva (surgeon it communications specialist) updated of developments over the phone. He will relay events to Dr. Leigh in a.m. Physical Exam Vital Signs (Past 24 Hours): Last Vital Signs Temp 36.9 C 08/15/18 03:16 Pulse 91 H 08/15/18 03:16 Resp 18 08/15/18 03:16 BP 113/61 08/15/18 03:16 Pulse Ox 94 08/15/18 03:16
[2018-08-15] MEDS ORDERED: IMIPENEM/CILASTATIN SODIUM 500 MG in DEXTROSE 5% 100 ML IV STA (03:27)
--- NOTE | 2018-08-15 07:17 | CT Scan Report ---
CT OF THE ABDOMEN AND PELVIS WITH CONTRAST CLINICAL HISTORY: Worsening abdominal pain. COMPARISON STUDY: CT of the abdomen and pelvis August 12, 2018. TECHNIQUE: Following IV administration of 92 mL of Optiray-320, axial images of the abdomen and pelvi s were obtained from the lung bases to the proximal femurs. Images were reviewed in the axial, sagitt al, and coronal planes. IV contrast was administered without complication. Automated exposure contro l was utilized for the study. A dose lowering technique was utilized adhering to the principles of A AURY. CT DOSE: 1805.47 mGy.cm FINDINGS: Lung bases are clear. The liver, spleen, adrenal glands, kidneys and pancreas are unremarka ble. There is no biliary or pancreatic ductal dilatation. There is no hydronephrosis or hydroureter. Sigmoid diverticulosis is noted with moderate circumferential wall thickening of the sigmoid colon. T here is extensive pericolonic infiltration which has progressed since CT of August 12, 2018. Multiple locules of extraluminal gas extending into the sigmoid mesentery are noted with an associated 4.9 x 2 .6 cm pocket of gas and fluid without significant rim enhancement. There is no well-defined fluid col lection at this time. These findings have progressed since CT of August 12, 2018. Small pockets of flu id are also noted. There is no evidence for a bowel obstruction. No suspicious osseous lesions are pr esent. There is no hydronephrosis. IMPRESSION: Progression of severe perforated acute sigmoid diverticulitis since CT of August 12, 2018. Increase in inflammation and multiple pockets of gas and fluid extending into the sigmoid mesentery consistent w ith phlegmon. No well-defined rim-enhancing fluid collection at this time. Electronically signed by: Yon Mccormack M.D. 08/15/2018 7:16 AM
[2018-08-15 07:42] LABS: Basophils # (auto) 0.01 K/uL (0-0.2); Basophils % (auto) 0.1 %; Eosinophils # (auto) 0.27 K/uL (0-0.5); Eosinophils % (auto) 2.2 %; Hematocrit (blood only) 39.9 % (42-52); Hemoglobin 13.4 g/dL (14.0-18.0); Immature Granulocytes # (auto) 0.03 K/uL (0.00-0.02); Immature Granulocytes % (auto) 0.2 %; Lymphocytes # (auto) 1.38 K/uL (1.2-3.4); Mean Corpuscular Hgb Conc 33.6 g/dL (32-36); Mean Corpuscular Volume 87.3 fL (80-100); Mean Platelet Volume 11.7 fL (7.4-10.4); Monocytes # (auto) 1.31 K/uL (0.11-0.59); Monocytes % (auto) 10.4 %; Neutrophils # (auto) 9.55 K/uL (1.4-6.5); Neutrophils % (auto) 76.1 %; Platelet Count 181 K/uL (130-400); RDW Coefficient of Variation 13.1 % (11.5-14.5); RDW Standard Deviation 42.1 fL (36.4-46.3); Red Blood Count 4.57 M/uL (4.7-6.1); White Blood Count 12.55 K/uL (4.8-10.8)
[2018-08-15 07:59] LABS: Albumin Level 2.3 gm/dl (3.4-5.0); BUN Creatinine Ratio 10.4 (10-20); Calcium 8.7 mg/dl (8.5-10.1); Creatinine Clr Calc Pharmacy 211.8 ml/min; Est GFR (African American) 139.9; Est GFR (Non-African American) 120.7; Potassium 3.6 mmol/L (3.5-5.1)
[2018-08-15 08:02] LABS: Bilirubin,Total 2.6 mg/dl (0.2-1); Total Protein 6.5 gm/dl (6.4-8.2)
[2018-08-15] MEDS ORDERED: IMIPENEM/CILASTATIN CONSULT ACTIVE PRN (09:00)
--- NOTE | 2018-08-15 09:16 | Surgery Progress Note ---
Date of Service August 15, 2018 Assessment & Plan (1) Perforation of sigmoid colon due to diverticulitis: 27-year-old male with diverticulitis. It appears that contamination from initial perforation is organizing into an abscess. I would expect in the next 3-5 days he will have a well-formed abscess amenable to drainage. We discussed his options at length to include continuation with antibiotics and possible IR drainage of an abscess develops. We also discussed the option of sigmoidectomy which would require a likely ostomy. A third option was discussed to be a laparoscopic washout with drain placement and possible resection of the colon. After lengthy discussion, the patient would like to speak with his family and will make a decision regarding surgery. There is nothing forcing us to the OR at this point. Surgery will continue to follow. Present on Admission?: Yes Subjective 27 y/o male with diverticulitis. Increased pain overnight, repeat CT with what appears to be and organizing abscess. Feels better this morning, but still painful. Physical Exam Vital Signs (Past 24 Hours): Last Vital Signs Temp 37.0 C 08/15/18 07:50 Pulse 86 08/15/18 07:50 Resp 18 08/15/18 07:50 BP 126/72 08/15/18 07:50 Pulse Ox 97 08/15/18 07:50 Constitutional: WD/WN, vitals as above Gastrointestinal (Abdomen): Percussion/Palpation: + abdomen tender (TTP in LLQ, slightly worse than yesterday, but no guarding) and abdomen soft; no guarding Results & Data Laboratory Results Laboratory Results - last 24 hr 08/14/18 08/15/18 08/15/18 20:57 07:07 07:07 WBC 11.61 H 12.55 H RBC 4.82 4.57 L Hgb 14.0 13.4 L Hct 41.3 L 39.9 L MCV 85.7 87.3 MCH 29.0 29.3 MCHC 33.9 33.6 RDW Std Deviation 40.4 42.1 RDW Coeff of Cookie 12.9 13.1 Plt Count 162 181 MPV 11.5 H 11.7 H Immature Gran % (Auto) 0.6 0.2 Neut % (Auto) 81.6 76.1 Lymph % (Auto) 7.1 11.0 [place] % (Auto) 8.8 10.4 Eos % (Auto) 1.7 2.2 Baso % (Auto) 0.2 0.1 Immature Gran # (Auto) 0.07 H 0.03 H Neut # (Auto) 9.47 H 9.55 H Lymph # (Auto) 0.83 L 1.38 [place] # (Auto) 1.02 H 1.31 H Eos # (Auto) 0.20 0.27 Baso # (Auto) 0.02 0.01 Sodium 138 Potassium 3.6 Chloride 106 Carbon Dioxide 26 Anion Gap 6.0 BUN 8 Creatinine 0.80 Est Cr Clr Drug Dosing 211.8 Est GFR ( Amer) 139.9 Est GFR (Non-Af Amer) 120.7 BUN/Creatinine Ratio 10.4 Glucose 96 Calcium 8.7 Total Bilirubin 2.6 H Direct Bilirubin 1.0 H AST 10 L ALT 21 Alkaline Phosphatase 122 H Total Protein 6.5 Albumin 2.[address] OF THE ABDOMEN AND PELVIS WITH CONTRAST CLINICAL HISTORY: Worsening abdominal pain. COMPARISON STUDY: CT of the abdomen and pelvis August 12, 2018. TECHNIQUE: Following IV administration of 92 mL of Optiray-320, axial images of the abdomen and pelvis were obtained from the lung bases to the proximal femurs. Images were reviewed in the axial, sagittal, and coronal planes. IV contrast was administered without complication. Automated exposure control was utilized for the study. A dose lowering technique was utilized adhering to the principles of ALARA. CT DOSE: 1805.47 mGy.cm FINDINGS: Lung bases are clear. The liver, spleen, adrenal glands, kidneys and pancreas are unremarkable. There is no biliary or pancreatic ductal dilatation. There is no hydronephrosis or hydroureter. Sigmoid diverticulosis is noted with moderate circumferential wall thickening of the sigmoid colon. There is extensive pericolonic infiltration which has progressed since CT of August 12, 2018. Multiple locules of extraluminal gas extending into the sigmoid mesentery are noted with an associated 4.9 x 2.6 cm pocket of gas and fluid without sig nificant rim enhancement. There is no well-defined fluid collection at this time. These findings have progressed since CT of August 12, 2018. Small pockets of fluid are also noted. There is no evidence for a bowel obstruction. No suspicious osseous lesions are present. There is no hydronephrosis. IMPRESSION: Progression of severe perforated acute sigmoid diverticulitis since CT of August 12, 2018. Increase in inflammation and multiple pockets of gas and fluid extending into the sigmoid mesentery consistent with phlegmon. No well-defined rim-enhancing fluid collection at this time.
[2018-08-15] MEDS: D5NSS + 20MEQ KCL 20 MEQ/1,000 ML BAG IV SCH ×2 (09:17→19:07)
[2018-08-15] MEDS: IMIPENEM/CILASTATIN SODIUM 500 MG in DEXTROSE 5% 100 ML IV SCH ×2 (09:44→18:46)
--- NOTE | 2018-08-15 10:28 | History & Physical Bridge Note ---
Date of Service August 15, 2018 History & Physical Bridge Note After discussion with family, patient elects for surgery today. Will plan for diagnostic laparoscopy, laparoscopic sigmoid colectomy, possible open, possible ostomy. Risks of the procedure discussed to include bleeding, infection, recurrence, abscess, anastomotic leak, damage to surrounding structures, need for future or more extensive surgery, and risks of anesthesia. I have examined the patient, reviewed the History & Physical and in the interval since the performance of the History & Physical I have noted the following changes of clinical significance: no changes noted
[2018-08-15] MEDS ORDERED: PROPOFOL IV EMULSION 10 MG/ML 20 ML VIAL IV ONE (10:49)
[2018-08-15] MEDS ORDERED: MIDAZOLAM HCL 1 MG/ML 2ML VIAL ONE (10:49)
[2018-08-15] MEDS ORDERED: DEXAMETHASONE SOD INJ 4 MG/ML VIAL ONE (10:49)
[2018-08-15] MEDS ORDERED: fentaNYL citrate 100 MCG/2 ML VIAL ONE ×3 (10:49→14:22)
[2018-08-15] MEDS ORDERED: GLYCOPYRROLATE 0.2 MG/ML VIAL ONE (10:49)
[2018-08-15] MEDS ORDERED: ONDANSETRON INJ 2 MG/ML 2 ML VIAL ONE (10:49)
[2018-08-15] MEDS ORDERED: LIDOCAINE HCL 2% 2 ML VIAL/AMP(20MG/ML) INFIL ONE (10:49)
[2018-08-15] MEDS ORDERED: NEOSTIGMINE METHYLSULFATE 5 MG/5 ML SYR ONE (10:49)
[2018-08-15] MEDS ORDERED: BUPIVACAINE 0.5 % 5 MG/1 ML MPF 30ML VIAL ONE (11:20)
[2018-08-15] MEDS ORDERED: BUPIVACAINE LIPOSOME 1.3% 266 MG/20 ML VIAL ONE (11:21)
--- NOTE | 2018-08-15 11:38 | Anesthesiology Consultation ---
Date of Service August 15, 2018 Assessment & Plan Chart Review Chart Review: Acceptable Risk for Surgery and Patient NOT seen in Pre Admission Testing Consults Requested none ASA [id number] Proposed Anesthesia Anesthesia Type: General Risk / Benefits Reviewed With: PT / POA / Parent / Guardian, Accepts Plan and Informed Consent Obtained NPO Date Last Intake of Fluids: 08/10/18 Time Last Intake of Fluids: 02:00 Date Last Intake of Solids: 08/14/18 Time Last Intake of Solids: 21:00 History Surgery Operation Date: 08/15/18 10:10 Proposed Procedures p Diagnostic Laparoscopy, Laparoscopic Sigmoidectomy, Possible Open, Possible Os jass Leigh, DO, FACS Height/Weight Height: 6 ft 4 in Weight: 144.6 kg Allergies Allergy/AdvReac Type Severity Reaction Status Date / Time amoxicillin Allergy Unknown unknown Verified 08/11/18 15:52 Cephalosporins Allergy Unknown unknown Verified 08/11/18 15:52 Medications Home Medications Medication Instructions Recorded Confirmed Last Taken allopurinol [Zyloprim] 100 mg PO BID 08/11/18 08/11/18 Unknown ibuprofen [IBU] 600 mg PO TID PRN 08/11/18 08/11/18 Unknown indomethacin 50 mg PO TID 08/11/18 08/11/18 08/10/18 19:00 omeprazole 20 mg PO DAILY 08/11/18 08/11/18 08/10/18 Active Medications Generic Name Dose Route Start Last Admin Trade Name Freq PRN Reason Stop Dose Admin Hydromorphone HCl 1 mg 08/15/18 03:00 08/15/18 06:42 Dilaudid IV 08/28/18 15:48 1 mg Q3H PRN Administration Pain Acetaminophen 1,000 mg in 100 mls @ 400 mls/hr 08/12/18 18:27 08/14/18 20:26 Ofirmev IV 09/11/18 18:26 Infused Q8H PRN Infusion Pain Potassium Chloride/Dextrose/Sod Cl 20 meq in 1,000 mls @ 125 mls/hr 08/12/18 19:45 08/15/18 09:17 D5nss + 20meq Kcl IV 09/11/18 19:44 125 mls/hr .Q8H MONY Administration Imipenem/Cilastatin Sodium 500 110 mls @ 110 mls/hr 08/15/18 10:00 08/15/18 10:51 mg/ Dextrose IV 08/25/18 09:59 Infused Q6H MONY Infusion Ioversol 94 ml 08/11/18 17:19 08/11/18 17:20 Optiray 320 100ml IV 08/15/18 17:18 94 ml ONCE PRN Administration Interaction Checking Ioversol 100 ml 08/15/18 03:02 08/15/18 03:02 Optiray 320 100ml IV 08/19/18 03:01 92 ml ONCE PRN Administration Interaction Checking Ketorolac Tromethamine 30 mg 08/14/18 10:26 08/15/18 07:59 Toradol IV 08/19/18 10:25 30 mg Q6H PRN Administration Pain Past Medical History Medical History Diverticulitis (Resolved) GERD (gastroesophageal reflux disease) (Chronic) Past Family History Family History Other No significant family history Past Anesthesia History No Hx of Anesthesia Complications and No Family Hx of Anesthesia Complications History of PONV No Motion Sickness Screening History of Motion Sickness: No Social History Smoking Status: Never smoker Do You Dip or Chew Tobacco: No Hx Alcohol Use: Yes Alcohol type: beer alcohol intake frequency: other Alcohol Intake Frequency Comment: per history 6/month Hx Substance Use: No Exercise / Class Metabolic Activity II 4-5 Yardwork/Stairs/Walk up hill Physical Exam Vital Signs Last Vital Signs Temp 37.2 C 08/15/18 11:15 Pulse 95 H 08/15/18 11:15 Resp 18 08/15/18 11:15 BP 140/88 08/15/18 11:15 Pulse Ox 98 08/15/18 11:15 Constitutional + obese ENMT Mouth: no dentition abnormality Thyromental Distance: > or= 3.5 Finger Breadths Mallampati Class: II Neck normal visual inspection, trachea midline and + facial hair; neck extension not limited Respiratory normal respiratory effort Auscultation: lungs clear to auscultation bilaterally Cardiovascular Rate/Rhythm: regular rate and regular rhythm Heart Sounds: no murmur Musculoskeletal Spine: normal cervical ROM Neurologic moves all extremities Motor/Sensory: no sensory deficit Psychiatric Orientation: alert and oriented x 3 Testing Laboratory Results 08/15/18 07:07 08/15/18 07:07 Urine Color Yellow 08/11/18 17:03 Urine Appearance Clear (Clear) 08/11/18 17:03 Urine pH 7.5 (4.5-7.5) 08/11/18 17:03 Ur Specific [place] 1.018 (1.000-1.030) 08/11/18 17:03 Urine Protein Negative (Negative) 08/11/18 17:03 Urine Glucose (UA) Negative (Negative) 08/11/18 17:03 Urine Ketones Trace (Negative) H 08/11/18 17:03 Urine Nitrite Negative (Negative) 08/11/18 17:03 Ur Leukocyte Esterase Negative (Negative) 08/11/18 17:03 08/13/18 11:47 Blood Culture - Preliminary Blood No growth to date. 08/13/18 11:40 Blood Culture - Preliminary Blood No growth to date.
[2018-08-15] MEDS ORDERED: HYDROmorphone INJ 2 MG/ML SYR/VIAL ONE (11:59)
[2018-08-15] MEDS ORDERED: ePHEDrine sulfate 50 MG/ML AMP IV PRN (12:04)
[2018-08-15] MEDS ORDERED: ATROPINE SULFATE 0.1 MG/ML 10ML SYR IV PRN (12:04)
[2018-08-15] MEDS ORDERED: ONDANSETRON INJ 2 MG/ML 2 ML VIAL IV PRN (12:04)
[2018-08-15] MEDS ORDERED: FLUMAZENIL 0.1 MG/1 ML 10 ML VIAL IV PRN (12:04)
[2018-08-15] MEDS ORDERED: PROMETHAZINE HCL 12.5 MG in SODIUM CHLORIDE 0.9% 50 ML IV PRN (12:04)
[2018-08-15] MEDS ORDERED: LABETALOL HCL IV 5 MG/ML 20ML IV PRN (12:04)
[2018-08-15] MEDS ORDERED: NALOXONE HCL 0.4 MG/1 ML VIAL/CARP IV PRN ×2 (12:04→16:41)
[2018-08-15] MEDS ORDERED: ROCURONIUM BROMIDE 10 MG/ML 5 ML VIAL ONE ×2 (12:26→13:14)
[2018-08-15] MEDS ORDERED: SUCCINYLCHOLINE CHLORIDE 20 MG/ML 10 ML VIAL ONE (12:26)
--- NOTE | 2018-08-15 13:33 | Hospitalist Progress Note ---
Date of Service August 15, 2018 Assessment & Plan (1) Perforation of sigmoid colon due to diverticulitis: Condition got worse following oral food yesterday Repeat CT of the abdomen did show questionable progression of the disease Improving clinically today Afebrile, leukocytosis slightly better Appreciate surgery input and recommendation; for conservative management Appreciate ID input and recommendation Was on intravenous ciprofloxacin plus Flagyl IV He has been on ertapenem now Appreciate ID input and recommendation Blood culture has been has been negative and white count remains stable Condition got worse overnight and repeat CAT scan did show worsening of colonic collection-but not yet organized abscess Discussed with the surgery team and he will be taken to or for laparoscopic procedure ELEVATED INDIRECT BILIRUBIN Review of records showed patient has history of increased indirect bilirubin up to 3 during admission for diverticulitis in 2017 CT abdomen and pelvis showing no biliary obstruction Tot Marcin further increased to 4.6 Alk phos normalized, AST/ALT within normal limits monitor-LFTs remains unremarkable GOUT Patient a few days ago experienced swelling of the right ankle He was placed on indomethacin 50 mg 3 times daily with improvement of symptom- hold while admitted in light of diverticulitis with perforation Allopurinol ordered 100 mg twice daily-continue while admitted No acute symptoms of gout HISTORY OF GERD Provide Protonix IV daily DVT prophylaxis SCDs for now in light of progressive perforation, possible surgical intervention at any time Disposition Surgery today Subjective 08/13 The patient was seen and examined the medical unit He was admitted with acute diverticulitis with possible perforation He has been getting intravenous antibiotic and getting better He denies any symptoms of fever and no chills today the abdominal pain is resolved 08/14 The patient was seen and examined in medical floor He has been complaining of lower abdominal pain His bowels have been loose but denies any vomiting No fever and/or chills 08/15 His condition got worse overnight and repeat CAT scan did not show increasing fluid collection along the colonic wall with air but no evidence of any abscess right now Discussed with general surgery and the patient was taken to the OR for laparoscopic procedure 27 y/o male with diverticulitis. Increased pain overnight, repeat CT with what appears to be and organizing abscess. Feels better this morning, but still painful. Review of Systems Review of Systems: Other (All systems reviewed and are unremarkable except as noted below) Gastrointestinal: + abdominal pain, + bloating and + nausea Increasing pain in the lower quadrants and hypogastrium Physical Exam Physical Exam: No apparent distress at rest but very anxious Constitutional: WD/WN, vitals as above well developed Eyes: PERRL, conjunctivae normal, anicteric sclerae ENMT: external ear and nose normal, oropharynx normal Neck: trachea midline, no thyromegaly Respiratory: normal respiratory effort, lungs clear to auscultation Cardiovascular: Rate/Rhythm: regular rate and regular rhythm Heart Sounds: normal S1 and normal S2 Gastrointestinal (Abdomen): Inspection/Auscultation: + abdomen distended (Minimally distended) and normal bowel sounds Percussion/Palpation: + abdomen tender (Lower quadrants and hypogastrium with rebound tenderness) and abdomen soft Neurologic: PERRL, EOMI, accommodation nl, no face palsy, no dysarthria Results & Data Vital Signs (Past 12 Hours) Vital Signs Temp Pulse Pulse Pulse Resp BP Pulse Ox 08/15/18 11:15 37.2 C 95 H 95 H 18 140/88 98 08/15/18 07:50 37.0 C 86 18 126/72 97 08/15/18 06:46 36.7 C 67 18 129/78 96 08/15/18 03:16 36.9 C 91 H 18 113/61 94 Laboratory Results Short CBC 08/14/18 08/15/18 Range/Units 20:57 07:07 WBC 11.61 H 12.55 H (4.8-10.8) K/uL Hgb 14.0 13.4 L (14.0-18.0) g/dL Hct 41.3 L 39.9 L (42-52) % Plt Count 162 181 (130-400) K/uL BMP 08/15/18 07:07 Sodium 138 Potassium 3.6 Chloride 106 Carbon Dioxide 26 BUN 8 Creatinine 0.80 Glucose 96 Calcium 8.7 Liver Function 08/15/18 Range/Units 07:07 Total Bilirubin 2.6 H (0.2-1) mg/dl Direct Bilirubin 1.0 H (0-0.2) mg/dl AST 10 L (15-37) U/L ALT 21 (12-78) U/L Alkaline Phosphatase 122 H (45-117) U/L Albumin 2.3 L (3.4-5.0) gm/dl Medications Administered Current Inpatient Medications Atropine Sulfate (Atropine Sulfate) 0.5 mg IV Q1M PRN PRN Reason: PACU Use-HR<40 &/or Bradycardi Stop: 08/15/18 17:04 Ephedrine Sulfate (Ephedrine Sulfate) 5 mg IV Q5M PRN PRN Reason: PACU Use Only-SBP<90 mmHg Stop: 08/15/18 17:04 Flumazenil (Romazicon) 0.2 mg IV Q2M PRN PRN Reason: PACU Use Only-Benzo Reversal Stop: 08/15/18 17:04 Hydromorphone HCl (Dilaudid) 1 mg IV Q3H PRN PRN Reason: Pain Stop: 08/28/18 15:48 Last Admin: 08/15/18 06:42 Dose: 1 mg Documented by: Hydromorphone HCl (Dilaudid) 0.25 mg IV Q5M PRN PRN Reason: PACU Use Only-Pain Stop: 08/15/18 17:04 Acetaminophen (Ofirmev) 1,000 mg in 100 mls @ 400 mls/hr IV Q8H PRN PRN Reason: Pain Stop: 09/11/18 18:26 Last Infusion: 08/14/18 20:26 Dose: Infused Documented by: Potassium Chloride/Dextrose/Sod Cl (D5nss + 20meq Kcl) 20 meq in 1,000 mls @ 125 mls/hr IV .Q8H MONY Stop: 09/11/18 19:44 Last Admin: 08/15/18 09:17 Dose: 125 mls/hr Documented by: Imipenem/Cilastatin Sodium 500 (mg/ Dextrose) 110 mls @ 110 mls/hr IV Q6H MONY Stop: 08/25/18 09:59 Last Infusion: 08/15/18 10:51 Dose: Infused Documented by: Promethazine HCl 12.5 mg/ (Sodium Chloride) 50.5 mls @ 204 mls/hr IV ONCE PRN PRN Reason: PACU Use Only-Nausea/Vomiting Stop: 08/15/18 17:04 Ioversol (Optiray 320 100ml) 94 ml IV ONCE PRN PRN Reason: Interaction Checking Stop: 08/15/18 17:18 Last Admin: 08/11/18 17:20 Dose: 94 ml Documented by: Ioversol (Optiray 320 100ml) 100 ml IV ONCE PRN PRN Reason: Interaction Checking Stop: 08/19/18 03:01 Last Admin: 08/15/18 03:02 Dose: 92 ml Documented by: Ketorolac Tromethamine (Toradol) 30 mg IV Q6H PRN PRN Reason: Pain Stop: 08/19/18 10:25 Last Admin: 08/15/18 07:59 Dose: 30 mg Documented by: Labetalol HCl (Normodyne) 5 mg IV Q5M PRN PRN Reason: PACU Use-SBP>160 or DBP>100 Stop: 08/15/18 17:04 Miscellaneous Information (Consult) 1 ea N/A DAILY PRN PRN Reason: Consult Stop: 09/14/18 08:59 Naloxone HCl (Narcan) 0.2 mg IV Q2M PRN PRN Reason: PACU Use Only-Opiate Reversal Stop: 08/15/18 17:04 Ondansetron HCl (Zofran) 4 mg IV Q4H PRN PRN Reason: Nausea And Vomiting Stop: 09/10/18 19:22 Ondansetron HCl (Zofran) 4 mg IV ONCE PRN PRN Reason: PACU Use Only-Nausea/Vomiting Stop: 08/15/18 17:04
--- NOTE | 2018-08-15 15:36 | Post Operative Brief Note ---
Immediate Post Op Note v1 Date of Surgery August 15, 2018 Pre & Post Diagnosis Operation Date: 08/15/18 10:10 Pre-Op Diagnosis: diverticulitis Post-Op Diagnosis: diverticulitis Procedure Operation Date: 08/15/18 10:10 Actual Procedures p Laparoscopic Assisted Sigmoidectomy, Laparoscopic mobilization of splenic flexure, Incidental Appendectomy - Aman Leigh DO, FACS Surgeon Aman Leigh DO, SHYLA Bag Shaker Ismael Aguero PA-C; Olimpia Loyd Estimated Blood Loss 30 Findings Consistent with Post-Op Diagnosis Thickened and inflamed sigmoid with phlegmon but no evidence of mir perforation or contamination, no abscess. Mobilized the splenic flexure laparoscopically. Mobilized the majority of the colon laparoscopically then placed a hand port for assistance. Colon stapled at rectosigmoid junction at splaying of tenea. Mesentery was short and extended incision to allow for further mobilization of left colon. Colon resected, 28 mm EEA stapled e nd-to-end anastomosis performed. Incidental appendectomy performed. Leak test negative. Exparel injected. Specimens Sigmoid colon Appendix Drains Gonzales Catheter and Juan Jose-Wakefield Drain (10 flat) Anesthesia Type General Complications none Disposition Accompanied Patient To Recovery: No Disposition: Recovery Room
--- NOTE | 2018-08-15 16:07 | Operative Report ---
Post Operative Report Pre & Post Diagnosis Operation Date: 08/15/18 10:10 Pre-Op Diagnosis: diverticulitis Post-Op Diagnosis: diverticulitis Procedure Operation Date: 08/15/18 10:10 Actual Procedures p Laparoscopic Assisted Sigmoidectomy, Laparoscopic mobilization of splenic flexure, Incidental Appendectomy - Aman Leigh DO, SHYLA Surgeon Aman Leigh DO, SHYLA Lamp Mechanic Ismael Aguero PA-C; Olimpia Loyd Estimated Blood Loss 30 Findings Consistent with Post-Op Diagnosis Thickened and inflamed sigmoid with phlegmon but no evidence of mir perforation or contamination, no abscess. Mobilized the splenic flexure laparoscopically. Mobilized the majority of the colon laparoscopically then placed a hand port for assistance. Colon stapled at rectosigmoid junction at splaying of tenea. Mesentery was short and extended incision to allow for further mobilization of left colon. Colon resected, 28 mm EEA stapled end-to-end anastomosis performed. Incidental appendectomy performed. Leak test negative. Exparel injected. Specimens Sigmoid colon appendix Drains 10 mm EARNESTINE drain in pelvis Anesthesia Type General Complications none Disposition Accompanied Patient To Recovery: No Disposition: Recovery Room Indications 27-year-old male hospital day 5 with worsening sigmoid diverticulitis with small perforation and phlegmon. After discussion of his options, the patient elects for resection. Plan for diagnostic laparoscopy, laparoscopic sigmoidectomy, possible open, possible ostomy. The risks of the procedure were discussed, all questions were answered, and the patient agreed to proceed with surgery as planned. Description of Procedure The patient was properly identified, consented, and taken to the operating room where he was placed in the supine position. General endotracheal anesthesia was induced. SCDs and a safety belt were placed. Preoperative antibiotics were administered. A Gonzales catheter and an NG tube were placed. The patient's abdomen was prepped and draped in the standard sterile fashion. Surgical timeout was performed and all parties were in agreement that this was the correct patient and procedure to be performed and we continued as planned. A vertical midline infraumbilical incision was made with electrocautery and deepened down to the fascia with blunt dissection. The base of the umbilicus was grasped with a Karlie. There was a small umbilical hernia present that was noted at this time. The Karlie was elevated towards the ceiling and the fascia was incised with a knife. Stay sutures were placed on either side of the midline. The Rodo trocar entry into the peritoneum was confirmed. The Rodo trocar was then placed and the abdomen insufflated with carbon dioxide which the patient tolerated without incident. The laparoscope was inserted and the abdomen inspected. No damage from initial trocar placement was noted. The sigmoid colon was dilated and inflamed. There was some separative exudate, but no evidence of gross contamination or abscess. No other abnormalities were noted. Next, 5 mm ports were then placed in the midline just above the pubic symphysis and in the right upper quadrant and left upper quadrant. A 12 mm port was placed in the right lower quadrant. The patient was placed in Trendelenburg position and the rotated towards the left. The small bowel was swept out of the way. There was some inflammatory adhesions of the small bowel to sigmoid colon and abdominal wall that were bluntly dissected. The sigmoid colon was difficult to grasp due to the inflammation. We then proceeded to mobilize the splenic flexure. This was done with harmonic scalpel and it appeared that the descending colon would reach down into the pelvis. We then continued the dissection distally by taking down the white line of Toldt until we got to the inflamed sigmoid colon. Laparoscopy was ceased and a midline incision was made around the umbilicus for a length of approximately 7 cm. The wound protector was placed within the wound after the fascia was opened. The GelPort was placed and using hand assistance the sigmoid colon mobilization was completed. A soft area of the colon at the rectosigmoid junction which was identified by splaying of the teniae was chosen as the resection point. A window was created around the colon and a purple loaded 60 mm Endo BESSY stapler was used to divide the colon at this point. The inflamed sigmoid was too large to fit through the wound protector and so this was removed and the incision extended. We completed mobilization of the sigmoid and descending colon. The mesentery was short and the body wall thick, therefore it was difficult to bring the descending colon through the incision. We chose a resection point just proximal to diverticulitis that was good supple healthy bowel with no evidence of diverticulosis. Purple load Endo BESSY stapler was used to divide the bowel at this point. An end to end anastomosis was then created with a 28 mm EEA stapler after measuring with the sizers. A bowel clamp was placed and the staple line of the descending colon was excised. The anvil was placed in the distal left colon and a pursestring suture with 2-0 prolene was used to secure it into place. The stapler was inserted through the rectum and the anastomosis was completed. There were 2 complete donuts which were not sent as specimen. The anastomosis appeared to be widely patent and there did not appear to be any leaks. There was good blood flow at the edge of the staple line. A rigid proctoscope was inserted and a leak test was performed which showed no evidence of leak. Small bowel was run and it appeared to have no abnormalities or injuries. The appendix was identified and I chose to remove it. A window was created at the base of the appendix and the appendix was stapled with a clark loaded 30 mm stapler. Mesoappendix was then divided with harmonic scalpel and hemostasis was good. The appendix was sent as specimen. The abdomen was then irrigated with several liters of warm saline. The fascia was closed with a #1 PDS x2. The wound was irrigated. The fascia was then injected with exparel. The skin was then closed with cooper. The remaining port sites were closed with cooper. Sterile dressings were placed. The patient was extubated in the operating room and taken to the PACU where he recovered without apparent incident. All sponge, instrument, and needle counts were correct. The patient tolerated the procedure well. The colon specimen was sent to Pathology. Mr. Aguero was present and scrubbed for the entirety of the procedure. Ms. Loyd was present and scrubbed during the creation of the colorectal anast omosis. Both were critical in positioning the patient, prepping and draping, retraction exposure, driving the laparoscope, excision of specimen, closure of the incision and placement of the dressings. I attest to the content of the Intraoperative Record and any orders documented therein. Any exceptions are noted below.
--- NOTE | 2018-08-15 16:26 | Anesthesiology Progress Note ---
Date of Service August 15, 2018 Anesthesia Post Procedure Vital Signs Vital Signs: Temp Pulse Pulse Pulse Resp BP Pulse Ox 08/15/18 16:10 36.8 C 90 18 137/73 94 08/15/18 16:00 97 H 18 139/78 94 08/15/18 15:50 102 H 18 145/88 H 94 08/15/18 15:40 37.1 C 107 H 95 H 18 122/89 94 08/15/18 11:15 37.2 C 95 H 95 H 18 140/88 98 08/15/18 07:50 37.0 C 86 18 126/72 97 08/15/18 06:46 36.7 C 67 18 129/78 96 08/15/18 03:16 36.9 C 91 H 18 113/61 94 08/14/18 23:17 37.2 C 91 H 18 129/67 97 08/14/18 19:19 37.1 C 87 18 132/73 98 Pain Intensity Abdomen: Pain Intensity: 10 Head: Pain Intensity: 5 Notes Mental Status: alert / awake / arousable Patient Amnestic to Procedure: Yes Nausea / Vomiting: adequately controlled Pain: adequately controlled Airway Patency, RR, SpO2: stable & adequate BP & HR: stable & adequate Hydration State: stable & adequate Anesthetic Complications: no major complications apparent
[2018-08-15] MEDS: LACTATED RINGER'S 1,000 ML IV SCH ×2 (17:00→23:34)
[2018-08-15] MEDS: HYDROmorphone HCL 0.5MG/ML 50 ML CASSETTE IV PRN (17:38)
[2018-08-15 17:41] LABS: Basophils # (auto) 0.01 K/uL (0-0.2); Basophils % (auto) 0.1 %; Eosinophils # (auto) 0.02 K/uL (0-0.5); Eosinophils % (auto) 0.2 %; Hematocrit (blood only) 41.2 % (42-52); Hemoglobin 14.2 g/dL (14.0-18.0); Immature Granulocytes # (auto) 0.04 K/uL (0.00-0.02); Immature Granulocytes % (auto) 0.3 %; Lymphocytes # (auto) 0.49 K/uL (1.2-3.4); Lymphocytes % (auto) 4.1 %; Mean Corpuscular Hgb Conc 34.5 g/dL (32-36); Mean Corpuscular Volume 85.5 fL (80-100); Mean Platelet Volume 11.7 fL (7.4-10.4); Monocytes % (auto) 6.8 %; Neutrophils # (auto) 10.48 K/uL (1.4-6.5); Neutrophils % (auto) 88.5 %; Platelet Count 198 K/uL (130-400); RDW Coefficient of Variation 13.1 % (11.5-14.5); RDW Standard Deviation 41.2 fL (36.4-46.3); Red Blood Count 4.82 M/uL (4.7-6.1); White Blood Count 11.84 K/uL (4.8-10.8)
[2018-08-15] MEDS: SODIUM CHLORIDE 0.9% 1000ML 1,000 ML IV SCH (19:05)
[2018-08-15] MEDS: KETOROLAC TROMETHAMINE 15 MG/ML VIAL IV SCH (19:14)
[2018-08-15] MEDS ORDERED: Nursing to Pharmacy Communication ONE (19:47)
[2018-08-15] MEDS: ACETAMINOPHEN 65 ML IV SCH (20:37)
[2018-08-16] MEDS: KETOROLAC TROMETHAMINE 15 MG/ML VIAL IV SCH ×4 (00:36→18:23)
[2018-08-16] MEDS: IMIPENEM/CILASTATIN SODIUM 500 MG in DEXTROSE 5% 100 ML IV SCH ×4 (00:36→18:27)
[2018-08-16] MEDS: ACETAMINOPHEN 65 ML IV SCH ×3 (04:23→20:06)
[2018-08-16] MEDS: LACTATED RINGER'S 1,000 ML IV SCH ×3 (06:08→19:27)
[2018-08-16 06:54] LABS: Basophils # (auto) 0.01 K/uL (0-0.2); Basophils % (auto) 0.1 %; Eosinophils # (auto) 0.01 K/uL (0-0.5); Eosinophils % (auto) 0.1 %; Hematocrit (blood only) 39.5 % (42-52); Hemoglobin 13.4 g/dL (14.0-18.0); Immature Granulocytes # (auto) 0.03 K/uL (0.00-0.02); Immature Granulocytes % (auto) 0.3 %; Lymphocytes # (auto) 0.95 K/uL (1.2-3.4); Lymphocytes % (auto) 9.6 %; Mean Corpuscular Hgb Conc 33.9 g/dL (32-36); Mean Corpuscular Volume 86.1 fL (80-100); Mean Platelet Volume 11.5 fL (7.4-10.4); Monocytes # (auto) 1.07 K/uL (0.11-0.59); Monocytes % (auto) 10.9 %; Neutrophils # (auto) 7.78 K/uL (1.4-6.5); Platelet Count 203 K/uL (130-400); RDW Coefficient of Variation 13.2 % (11.5-14.5); RDW Standard Deviation 41.5 fL (36.4-46.3); Red Blood Count 4.59 M/uL (4.7-6.1); White Blood Count 9.85 K/uL (4.8-10.8)
[2018-08-16 07:36] LABS: BUN Creatinine Ratio 25.3 (10-20); Bilirubin Direct 1.3 mg/dl (0-0.2); Bilirubin,Total 2.4 mg/dl (0.2-1); Calcium 8.3 mg/dl (8.5-10.1); Creatinine Clr Calc Pharmacy 238.7 ml/min; Est GFR (Non-African American) 126.8; Total Protein 6.1 gm/dl (6.4-8.2)
[2018-08-16 07:41] LABS: Potassium 4.2 mmol/L (3.5-5.1)
--- NOTE | 2018-08-16 08:56 | Surgery Progress Note ---
Date of Service August 16, 2018 Assessment & Plan (1) Perforation of sigmoid colon due to diverticulitis: POD#1 sigmoidectomy, doing well. Of note, dark urine likely related to hyperbilirubinemia. ambulate cont iv abx cont ivf's possible d/c phan this afternoon keep ng tube, possible d/c this afternoon or tomorrow cont leonarda drain okay for a/c Present on Admission?: Yes Subjective 27 y/o male POD#1 lap assisted sigmoidectomy and incidental appy. Doing well, incisional pain but feels much better than prior to surgery. No flatus Physical Exam Constitutional: WD/WN, vitals as above Gastrointestinal (Abdomen): Inspection/Auscultation: abdomen not distended and + abnormal bowel sounds Percussion/Palpation: + abdomen tender (appropriate post surgical) and abdomen soft Results & Data Vital Signs (Past 12 Hours) Vital Signs Temp Pulse Pulse Resp BP BP Pulse Ox 08/16/18 07:47 36.6 C 77 18 112/68 92 08/16/18 04:08 36.6 C 76 16 117/65 92 08/15/18 22:53 36.9 C 73 16 103/65 93 08/15/18 21:04 36.6 C 87 16 103/65 93 Laboratory Results Laboratory Results - last 24 hr 08/15/18 08/16/18 08/16/18 17:07 06:09 06:09 WBC 11.84 H 9.85 RBC 4.82 4.59 L Hgb 14.2 13.4 L Hct 41.2 L 39.5 L MCV 85.5 86.1 MCH 29.5 29.2 MCHC 34.5 33.9 RDW Std Deviation 41.2 41.5 RDW Coeff of Cookie 13.1 13.2 Plt Count 198 203 MPV 11.7 H 11.5 H Immature Gran % (Auto) 0.3 0.3 Neut % (Auto) 88.5 79.0 Lymph % (Auto) 4.1 9.6 Carver % (Auto) 6.8 10.9 Eos % (Auto) 0.2 0.1 Baso % (Auto) 0.1 0.1 Immature Gran # (Auto) 0.04 H 0.03 H Neut # (Auto) 10.48 H 7.78 H Lymph # (Auto) 0.49 L 0.95 L Carver # (Auto) 0.80 H 1.07 H Eos # (Auto) 0.02 0.01 Baso # (Auto) 0.01 0.01 Sodium 137 Potassium 4.2 D Chloride 106 Carbon Dioxide 27 Anion Gap 4.0 BUN 18 D Creatinine 0.71 Est Cr Clr Drug Dosing 238.7 Est GFR ( Amer) 147.0 Est GFR (Non-Af Amer) 126.8 BUN/Creatinine Ratio 25.3 H Glucose 102 H Calcium 8.3 L Total Bilirubin 2.4 H Direct Bilirubin 1.3 H AST 9 L ALT 17 Alkaline Phosphatase 103 Total Protein 6.1 L Albumin 2.0 L
[2018-08-16 10:27] LABS: INR 1.2 (0.9-1.1); Partial Thromboplastin Time 27.1 Seconds (21.0-31.0); Prothrombin Time 12.6 Seconds (9.0-12.0)
[2018-08-16] MEDS: HEPARIN SOD 5,000 UNIT/0.5 ML VIAL SQ SCH ×2 (13:58→22:34)
[2018-08-16] MEDS: SODIUM CHLORIDE 0.9% 1000ML 1,000 ML IV SCH (17:44)
--- NOTE | 2018-08-16 18:10 | Hospitalist Progress Note ---
Date of Service August 16, 2018 Assessment & Plan (1) Perforation of sigmoid colon due to diverticulitis: Condition got worse following oral food yesterday Repeat CT of the abdomen did show questionable progression of the disease Improving clinically today Afebrile, leukocytosis slightly better Appreciate surgery input and recommendation; for conservative management Appreciate ID input and recommendation Was on intravenous ciprofloxacin plus Flagyl IV He has been on ertapenem now Appreciate ID input and recommendation Blood culture has been has been negative and white count remains stable Condition got worse overnight and repeat CAT scan did show worsening of colonic collection-but not yet organized abscess Discussed with the surgery team and he will be taken to or for laparoscopic procedure Status post surgery as below ELEVATED INDIRECT BILIRUBIN Review of records showed patient has history of increased indirect bilirubin up to 3 during admission for diverticulitis in 2017 CT abdomen and pelvis showing no biliary obstruction Tot Marcin further increased to 4.6 Alk phos normalized, AST/ALT within normal limits monitor-LFTs remains unremarkable GOUT Patient a few days ago experienced swelling of the right ankle He was placed on indomethacin 50 mg 3 times daily with improvement of symptom- hold while admitted in light of diverticulitis with perforation Allopurinol ordered 100 mg twice daily-continue while admitted No acute symptoms of gout HISTORY OF GERD Provide Protonix IV daily DVT prophylaxis SCDs for now in light of progressive perforation, possible surgical intervention at any time Disposition Surgery today (2) S/P laparoscopic-assisted sigmoidectomy: For perforated sigmoid colon due to diverticulitis POD #1 Appreciate surgery input and follow-up Complains of pain in the abdomen Did have occasional hallucination in the morning but cleared thereafter Hemodynamically stable Subjective 08/13 The patient was seen and examined the medical unit He was admitted with acute diverticulitis with possible perforation He has been getting intravenous antibiotic and getting better He denies any symptoms of fever and no chills today the abdominal pain is resolved 08/14 The patient was seen and examined in medical floor He has been complaining of lower abdominal pain His bowels have been loose but denies any vomiting No fever and/or chills 08/15 His condition got worse overnight and repeat CAT scan did not show increasing fluid collection along the colonic wall with air but no evidence of any abscess right now Discussed with general surgery and the patient was taken to the OR for laparoscopic procedure 27 y/o male with diverticulitis. Increased pain overnight, repeat CT with what appears to be and organizing abscess. Feels better this morning, but still painful. 08/15 The patient was seen and examined in the medical floor He is a status post laparoscopic sigmoidectomy Remains drowsy and painful Denies any other significant symptoms Review of Systems Review of Systems: All systems reviewed and are unremarkable except as noted below Gastrointestinal: + abdominal pain, + bloating and + nausea Physical Exam Physical Exam: Moderate distress at rest with pain ,weakness and tiredness Constitutional: WD/WN, vitals as above well developed Eyes: PERRL, conjunctivae normal, anicteric sclerae ENMT: external ear and nose normal, oropharynx normal Neck: trachea midline, no thyromegaly Respiratory: normal respiratory effort, lungs clear to auscultation Cardiovascular: Rate/Rhythm: regular rate and regular rhythm Heart Sounds: normal S1 and normal S2 Gastrointestinal (Abdomen): Inspection/Auscultation: + abdomen distended (Minimally distended) and normal bowel sounds Percussion/Palpation: + abdomen tender (Lower quadrants and hypogastrium with rebound tenderness) and abdomen soft Neurologic: PERRL, EOMI, accommodation nl, no face palsy, no dysarthria Results & Data Vital Signs (Past 12 Hours) Vital Signs Temp Pulse Pulse Resp BP BP Pulse Ox 08/16/18 15:27 36.9 C 86 16 105/63 90 08/16/18 12:48 36.6 C 79 18 105/63 91 08/16/18 11:39 91 08/16/18 07:47 36.6 C 77 18 112/68 92 Laboratory Results Short CBC 08/16/18 Range/Units 06:09 WBC 9.85 (4.8-10.8) K/uL Hgb 13.4 L (14.0-18.0) g/dL Hct 39.5 L (42-52) % Plt Count 203 (130-400) K/uL BMP 08/16/18 06:09 Sodium 137 Potassium 4.2 D Chloride 106 Carbon Dioxide 27 BUN 18 D Creatinine 0.71 Glucose 102 H Calcium 8.3 L Liver Function 08/16/18 Range/Units 06:09 Total Bilirubin 2.4 H (0.2-1) mg/dl Direct Bilirubin 1.3 H (0-0.2) mg/dl AST 9 L (15-37) U/L ALT 17 (12-78) U/L Alkaline Phosphatase 103 (45-117) U/L Albumin 2.0 L (3.4-5.0) gm/dl Medications Administered Current Inpatient Medications Heparin Sodium (Porcine) (Heparin Sodium (Porcine)) 5,000 units SQ Q8 [facility] Stop: 09/15/18 13:59 Last Admin: 08/16/18 13:58 Dose: 5,000 units Documented by: Hydromorphone HCl (Dilaudid Exchange Specialist) 25 mg IV PRN PRN; Protocol PRN Reason: Pain Stop: 08/29/18 16:40 Last Admin: 08/15/18 17:38 Dose: 25 mg Documented by: Imipenem/Cilastatin Sodium 500 (mg/ Dextrose) 110 mls @ 110 mls/hr IV Q6H [facility] Stop: 08/25/18 09:59 Last Infusion: 08/16/18 13:42 Dose: Infused Documented by: Sodium Chloride (Nss 1000ml) 1,000 mls @ 15 mls/hr IV .Q24H [facility] Stop: 08/29/18 16:42 Last Admin: 08/16/18 17:44 Dose: Not Given Documented by: Acetaminophen (Ofirmev) 65 mls @ 200 mls/hr IV Q8H [facility] Stop: 09/14/18 17:59 Last Infusion: 08/16/18 12:59 Dose: Infused Documented by: Lactated Ringer's (Lr) 1,000 mls @ 150 mls/hr IV .Q6H40M [facility] Stop: 09/14/18 16:40 Last Admin: 08/16/18 12:44 Dose: 150 mls/hr Documented by: Ioversol (Optiray 320 100ml) 100 ml IV ONCE PRN PRN Reason: Interaction Checking Stop: 08/19/18 03:01 Last Admin: 08/15/18 03:02 Dose: 92 ml Documented by: Ketorolac Tromethamine (Toradol) 15 mg IV Q6H [facility] Stop: 08/20/18 17:59 Last Admin: 08/16/18 11:31 Dose: 15 mg Documented by: Miscellaneous Information (Consult) 1 ea N/A DAILY PRN PRN Reason: Consult Stop: 09/14/18 08:59 Naloxone HCl (Narcan) 0.1 mg IV Q5M PRN; Protocol PRN Reason: Oversedation/Resp Depression Stop: 08/29/18 16:40 Ondansetron HCl (Zofran) 4 mg IV Q4H PRN PRN Reason: Nausea And Vomiting Stop: 09/10/18 19:22
[2018-08-17] MEDS: KETOROLAC TROMETHAMINE 15 MG/ML VIAL IV SCH ×5 (00:30→23:15)
[2018-08-17] MEDS: IMIPENEM/CILASTATIN SODIUM 500 MG in DEXTROSE 5% 100 ML IV SCH ×5 (00:30→23:15)
[2018-08-17] MEDS: PANTOprazole 40 MG TAB PO SCH (01:06)
[2018-08-17] MEDS: LACTATED RINGER'S 1,000 ML IV SCH ×2 (01:41→07:46)
[2018-08-17] MEDS: ACETAMINOPHEN 65 ML IV SCH ×3 (04:20→20:18)
[2018-08-17] MEDS: HEPARIN SOD 5,000 UNIT/0.5 ML VIAL SQ SCH ×3 (06:07→23:07)
[2018-08-17 06:48] LABS: Basophils # (auto) 0.01 K/uL (0-0.2); Basophils % (auto) 0.1 %; Eosinophils # (auto) 0.31 K/uL (0-0.5); Eosinophils % (auto) 4.2 %; Hematocrit (blood only) 35.3 % (42-52); Hemoglobin 11.5 g/dL (14.0-18.0); Immature Granulocytes # (auto) 0.03 K/uL (0.00-0.02); Immature Granulocytes % (auto) 0.4 %; Lymphocytes # (auto) 1.65 K/uL (1.2-3.4); Lymphocytes % (auto) 22.4 %; Mean Corpuscular Hgb Conc 32.6 g/dL (32-36); Mean Platelet Volume 11.5 fL (7.4-10.4); Monocytes # (auto) 0.74 K/uL (0.11-0.59); Neutrophils # (auto) 4.63 K/uL (1.4-6.5); Neutrophils % (auto) 62.9 %; Platelet Count 191 K/uL (130-400); RDW Coefficient of Variation 13.2 % (11.5-14.5); RDW Standard Deviation 43.1 fL (36.4-46.3); Red Blood Count 4.01 M/uL (4.7-6.1); White Blood Count 7.37 K/uL (4.8-10.8)
[2018-08-17 07:17] LABS: Alanine Aminotransferase 14 U/L (12-78); Albumin Level 1.9 gm/dl (3.4-5.0); Alkaline Phosphatase 94 U/L (45-117); Aspartate Aminotransferase 12 U/L (15-37); BUN Creatinine Ratio 22.5 (10-20); Bilirubin Direct 0.7 mg/dl (0-0.2); Bilirubin,Total 1.3 mg/dl (0.2-1); Blood Urea Nitrogen 15 mg/dl (7-18); Calcium 8.5 mg/dl (8.5-10.1); Carbon Dioxide 29 mmol/L (21-32); Chloride 104 mmol/L (98-107); Creatinine Clr Calc Pharmacy 260.7 ml/min; Est GFR (African American) > 150.0; Est GFR (Non-African American) 131.5; Glucose 80 mg/dl (70-99); Potassium 3.5 mmol/L (3.5-5.1); Sodium 139 mmol/L (136-145); Total Protein 5.9 gm/dl (6.4-8.2)
--- NOTE | 2018-08-17 08:03 | Surgery Progress Note ---
Date of Service August 17, 2018 Assessment & Plan (1) S/P laparoscopic-assisted sigmoidectomy: POD 2 lap assisted sigmoid colectomy ok to begin clears, advance slowly change IVF to NSS + 20 meq K+ at 125 dressing changed cont EARNESTINE, IV abx subQ heparin Supervising Physician Co-Signing Physician Notes PNT S&E, labs reviewed, agree with above. POD#2 lap assisted sigmoidectomy for diverticulitis. Doing well, no flatus but hungry. About to try clear liquids. Had pain at incision when standing. Afebrile, abd soft, appropriately ttp, dressing changed by PA this AM and incision w/o infection. WBC normal, tbili downtrending. slowly advance to low fiber diet okay for discharge over weekend if tolerating low fiber diet, having bm's, pain controlled will continue drain til having bm's and tolerating diet, likely remove early next week either in clinic or if still here continue abx x 7 days post op, will transition to oral when tolerates diet abdominal binder for comfort as needed recommend outpatient GI consult for stress induced hyperbilirubinemia, possible [facility] Dr. Perea covering over weekend Subjective no flatus or BM, no nausea, pain control ok Physical Exam Gastrointestinal (Abdomen): Inspection/Auscultation: + abdominal surgical incision (dry, minimal dry blood around drain) and + abdominal surgical drain present (20 cc serosang); abdomen not distended Results & Data Vital Signs (Past 12 Hours) Vital Signs Temp Pulse Pulse Resp BP BP Pulse Ox 08/17/18 07:16 36.8 C 77 18 114/69 92 08/17/18 03:21 36.6 C 80 16 114/71 91 08/16/18 23:28 36.9 C 83 16 115/68 90
--- NOTE | 2018-08-17 10:39 | Infectious Disease Progress Nt ---
Date of Service August 17, 2018 Assessment & Plan (1) Perforation of sigmoid colon due to diverticulitis: continue IV abx for now, agree he could likely be transitioned to po abx when tolerating full diet, 7-10 days. Options would include, cipro 500mg po bid and flagyl 500mg po tid OR Augementin 875mg po bid. If he would prefer continued IV abx, would suggest transition to IV ertapenem 1g daily due to ease of once daily administration. No contraindication to d/c from ID standpoint when o therwise clinically stable. Subjective pt remains on IV Imipenem. On 08/15 had increased abd pain, ct abd done revealing increased inflammation and fluid, went to OR, underwent wash out and sigmoidectomy, no clear abscess or perforation noted. no OR cultures done. blood cultures from admission remain negative. afebrile. wbc 7.3. Pt to trial clear l iquid and to be changed to po abx for additional 7 days when diet advances to po. Results & Data Vital Signs (Past 12 Hours) Vital Signs Temp Pulse Pulse Resp BP BP Pulse Ox 08/17/18 07:16 36.8 C 77 18 114/69 92 08/17/18 03:21 36.6 C 80 16 114/71 91 08/16/18 23:28 36.9 C 83 16 115/68 90 Laboratory Results Microbiology 08/13/18 11:47 Blood Blood Culture - Preliminary No growth to date. 08/13/18 11:40 Blood Blood Culture - Preliminary No growth to date.
[2018-08-17] MEDS: NSS + 20MEQ KCL 20 MEQ/1,000 ML BAG IV SCH ×2 (11:54→19:39)
--- NOTE | 2018-08-17 15:51 | Hospitalist Progress Note ---
Date of Service August 17, 2018 Assessment & Plan (1) Perforation of sigmoid colon due to diverticulitis: Condition got worse following oral food yesterday Repeat CT of the abdomen did show questionable progression of the disease Improving clinically today Afebrile, leukocytosis slightly better Appreciate surgery input and recommendation; for conservative management Appreciate ID input and recommendation Was on intravenous ciprofloxacin plus Flagyl IV He has been on ertapenem now Appreciate ID input and recommendation Blood culture has been has been negative and white count remains stable Condition got worse overnight and repeat CAT scan did show worsening of colonic collection-but not yet organized abscess Discussed with the surgery team and he will be taken to or for laparoscopic procedure Status post surgery as below Antibiotic can be transitioned to oral Cipro plus Flagyl for Augmentin for 7 to 10 days on discharge.See ID note ELEVATED INDIRECT BILIRUBIN Review of records showed patient has history of increased indirect bilirubin up to 3 during admission for diverticulitis in 2016 CT abdomen and pelvis showing no biliary obstruction Tot Marcin further increased to 4.6 Alk phos normalized, AST/ALT within normal limits monitor-LFTs remains unremarkable GOUT Patient a few days ago experienced swelling of the right ankle He was placed on indomethacin 50 mg 3 times daily with improvement of symptom- hold while admitted in light of diverticulitis with perforation Allopurinol ordered 100 mg twice daily-continue while admitted No acute symptoms of gout HISTORY OF GERD Provide Protonix IV daily DVT prophylaxis SCDs for now in light of progressive perforation, possible surgical intervention at any time Disposition Surgery today (2) S/P laparoscopic-assisted sigmoidectomy: For perforated sigmoid colon due to diverticulitis POD #2 Appreciate surgery input and follow-up Complains of pain in the abdomen Feeling a lot better today We will continue current medications Subjective 08/13 The patient was seen and examined the medical unit He was admitted with acute diverticulitis with possible perforation He has been getting intravenous antibiotic and getting better He denies any symptoms of fever and no chills today the abdominal pain is resolved 08/14 The patient was seen and examined in medical floor He has been complaining of lower abdominal pain His bowels have been loose but denies any vomiting No fever and/or chills 08/15 His condition got worse overnight and repeat CAT scan did not show increasing fluid collection along the colonic wall with air but no evidence of any abscess right now Discussed with general surgery and the patient was taken to the OR for laparoscopic procedure 27 y/o male with diverticulitis. Increased pain overnight, repeat CT with what appears to be and organizing abscess. Feels better this morning, but still painful. 08/16 The patient was seen and examined in the medical floor He is a status post laparoscopic sigmoidectomy Remains drowsy and painful Denies any other significant symptoms 08/17 The patient is seen and examined the medical floor He has been looking much better today Abdominal pain is improved but has not Started to take oral Review of Systems Gastrointestinal: + abdominal pain, + bloating and + nausea Physical Exam Physical Exam: No distress sitting on a chair Constitutional: WD/WN, vitals as above well developed Eyes: PERRL, conjunctivae normal, anicteric sclerae ENMT: external ear and nose normal, oropharynx normal Neck: trachea midline, no thyromegaly Respiratory: normal respiratory effort, lungs clear to auscultation Cardiovascular: Rate/Rhythm: regular rate and regular rhythm Heart Sounds: normal S1 and normal S2 Gastrointestinal (Abdomen): Inspection/Auscultation: + abdomen distended (Minimally distended) and normal bowel sounds Percussion/Palpation: + abdomen tender (Lower quadrants and hypogastrium with rebound tenderness) and abdomen soft Neurologic: PERRL, EOMI, accommodation nl, no face palsy, no dysarthria Results & Data Vital Signs (Past 12 Hours) Vital Signs Temp Pulse Pulse Resp BP BP Pulse Ox 08/17/18 14:59 36.7 C 77 17 137/74 94 08/17/18 07:16 36.8 C 77 18 114/69 92 Laboratory Results Short CBC 08/17/18 Range/Units 06:11 WBC 7.37 (4.8-10.8) K/uL Hgb 11.5 L (14.0-18.0) g/dL Hct 35.3 L (42-52) % Plt Count 191 (130-400) K/uL BMP 08/17/18 06:11 Sodium 139 Potassium 3.5 D Chloride 104 Carbon Dioxide 29 BUN 15 Creatinine 0.65 Glucose 80 Calcium 8.5 Liver Function 08/17/18 Range/Units 06:11 Total Bilirubin 1.3 H (0.2-1) mg/dl Direct Bilirubin 0.7 H (0-0.2) mg/dl AST 12 L (15-37) U/L ALT 14 (12-78) U/L Alkaline Phosphatase 94 (45-117) U/L Albumin 1.9 L (3.4-5.0) gm/dl Medications Administered Current Inpatient Medications Heparin Sodium (Porcine) (Heparin Sodium (Porcine)) 5,000 units SQ Q8 [facility] Stop: 09/15/18 13:59 Last Admin: 08/17/18 13:57 Dose: Not Given Documented by: Hydromorphone HCl (Dilaudid Evp And Chief Operating Officer) 25 mg IV PRN PRN; Protocol PRN Reason: Pain Stop: 08/29/18 16:40 Last Admin: 08/15/18 17:38 Dose: 25 mg Documented by: Imipenem/Cilastatin Sodium 500 (mg/ Dextrose) 110 mls @ 110 mls/hr IV Q6H [facility] Stop: 08/25/18 09:59 Last Infusion: 08/17/18 13:19 Dose: Infused Documented by: Sodium Chloride (Nss 1000ml) 1,000 mls @ 15 mls/hr IV .Q24H [facility] Stop: 08/29/18 16:42 Last Admin: 08/16/18 17:44 Dose: Not Given Documented by: Acetaminophen (Ofirmev) 65 mls @ 200 mls/hr IV Q8H [facility] Stop: 09/14/18 17:59 Last Infusion: 08/17/18 12:47 Dose: Infused Documented by: Potassium Chloride/Sodium Chloride (Normal Saline W/20 Meq Kcl) 20 meq in 1,000 mls @ 125 mls/hr IV .Q8H [facility] Stop: 09/16/18 08:14 Last Admin: 08/17/18 11:54 Dose: 125 mls/hr Documented by: Ioversol (Optiray 320 100ml) 100 ml IV ONCE PRN PRN Reason: Interaction Checking Stop: 08/19/18 03:01 Last Admin: 08/15/18 03:02 Dose: 92 ml Documented by: Ketorolac Tromethamine (Toradol) 15 mg IV Q6H [facility] Stop: 08/20/18 17:59 Last Admin: 08/17/18 11:54 Dose: 15 mg Documented by: Miscellaneous Information (Consult) 1 ea N/A DAILY PRN PRN Reason: Consult Stop: 09/14/18 08:59 Naloxone HCl (Narcan) 0.1 mg IV Q5M PRN; Protocol PRN Reason: Oversedation/Resp Depression Stop: 08/29/18 16:40 Ondansetron HCl (Zofran) 4 mg IV Q4H PRN PRN Reason: Nausea And Vomiting Stop: 09/10/18 19:22 Pantoprazole Sodium (Protonix) 40 mg PO DAILY [facility] Stop: 09/16/18 00:29 Last Admin: 08/17/18 01:06 Dose: 40 mg Documented by:
[2018-08-17] MEDS: HYDROmorphone HCL 0.5MG/ML 50 ML CASSETTE IV PRN (18:11)
[2018-08-17] MEDS: SODIUM CHLORIDE 0.9% 1000ML 1,000 ML IV SCH (23:12)
[2018-08-18] MEDS: NSS + 20MEQ KCL 20 MEQ/1,000 ML BAG IV SCH ×3 (03:39→21:39)
[2018-08-18] MEDS: ACETAMINOPHEN 65 ML IV SCH ×3 (05:16→19:32)
[2018-08-18] MEDS: HEPARIN SOD 5,000 UNIT/0.5 ML VIAL SQ SCH ×3 (05:17→21:40)
[2018-08-18] MEDS: KETOROLAC TROMETHAMINE 15 MG/ML VIAL IV SCH ×4 (05:49→23:32)
[2018-08-18] MEDS: IMIPENEM/CILASTATIN SODIUM 500 MG in DEXTROSE 5% 100 ML IV SCH ×4 (05:49→23:31)
[2018-08-18] MEDS: PANTOprazole 40 MG TAB PO SCH (07:45)
--- NOTE | 2018-08-18 11:49 | Surgery Progress Note ---
Date of Service August 18, 2018 Assessment & Plan (1) Diverticulitis: Postoperative day #3 Bowel function is returning slowly Can advance to full liquid diet Continue IV antibiotics Continue EARNESTINE for now Encouraged ambulation Present on Admission?: Yes Subjective Postoperative day #3, status post laparoscopic assisted sigmoid resection Tolerated clear liquids Pain under very good control Has not required use of the PRINCIPAL SYSTEMS ARCHITECT in the last 24 hours Is passing flatus but has not yet passed his bowels EARNESTINE drain had 55 cc out yesterday and 15 cc out last shift material serosanguineous Physical Exam Gastrointestinal (Abdomen): Inspection/Auscultation: normal bowel sounds; abdomen not distended Percussion/Palpation: + abdomen tender (Mild incisional only) and abdomen soft Incision is clean, dry and intact Results & Data Vital Signs (Past 12 Hours) Vital Signs Temp Pulse Pulse Pulse Resp BP BP 08/18/18 11:27 36.8 C 71 18 126/72 08/18/18 07:54 36.6 C 70 17 130/76 08/18/18 06:54 36.6 C 82 18 136/87 08/18/18 03:36 37.1 C 82 18 132/85 08/17/18 23:49 36.8 C 76 18 128/78 Pulse Ox 08/18/18 11:27 94 08/18/18 07:54 96 08/18/18 06:54 96 08/18/18 03:36 96 08/17/18 23:49 98
[2018-08-18] MEDS ORDERED: OXYCODONE/ACETAMINOPHEN 5mg/325mg TAB PO PRN (12:26)
[2018-08-18] MEDS: SODIUM CHLORIDE 0.9% 1000ML 1,000 ML IV SCH (19:28)
--- NOTE | 2018-08-18 23:41 | Hospitalist Progress Note ---
Date of Service delayed entry date of service as noted above August 18, 2018 Assessment & Plan (1) Perforation of sigmoid colon due to diverticulitis: S/P laparoscopic-assisted sigmoidectomy Remains stable Advance diet per general surgery recommendations Continue imipenem ELEVATED INDIRECT BILIRUBIN Review of records showed patient has history of increased indirect bilirubin up to 3 during admission for diverticulitis in 2016 CT abdomen and pelvis showing no biliary obstruction Tot Marcin further increased to 4.6 Alk phos normalized, AST/ALT within normal limits monitor-LFTs remains unremarkable likely Gilbert syndrome as per GI GOUT Patient a few days ago experienced swelling of the right ankle He was placed on indomethacin 50 mg 3 times daily with improvement of symptom- hold while admitted in light of diverticulitis with perforation Allopurinol ordered 100 mg twice daily-continue while admitted No acute symptoms of gout HISTORY OF GERD Provide Protonix IV daily DVT prophylaxis SCDs Disposition Pending Anticipate discharge to home when cleared by general surgery service Subjective Follow-up for diverticular abscess Seen resting in bed, comfortable States he continues to feel improved today, has some mild discomfort in the surgical site otherwise no nausea, no vomiting No BMs yet positive flatus No chest pain, shortness of breath, dizziness Ambulate in the hallways today with no problems Review of Systems Review of Systems: All systems reviewed & are unremarkable except as noted in HPI & below Physical Exam Physical Exam: General- oriented x 3, not in distress, speaks in sentences with no effort or accessory muscle use Eyes- anicteric Neck- no JVD Lungs- clear breath sounds bilaterally, no rales/wheezes Heart- normal rate, regular rhythm; no murmurs Abdomen- normal bowel sounds, nondistended, soft, nontender EARNESTINE drain in place: Serosanguineous output noted about 40 cc Abdominal binder in place Extremities- no pretibial edema, no calf tenderness Neuro- alert, oriented x 3; no gross focal neurologic deficits Skin- warm & dry Results & Data Vital Signs (Past 12 Hours) Vital Signs Temp Pulse Pulse Resp BP BP Pulse Ox 08/18/18 23:01 36.6 C 64 16 143/74 H 97 08/18/18 15:14 36.6 C 74 17 130/84 97 Laboratory Results Unwanted and reviewed
[2018-08-19] MEDS: ACETAMINOPHEN 65 ML IV SCH ×3 (05:04→21:07)
[2018-08-19] MEDS: HEPARIN SOD 5,000 UNIT/0.5 ML VIAL SQ SCH ×3 (05:04→21:07)
[2018-08-19] MEDS: IMIPENEM/CILASTATIN SODIUM 500 MG in DEXTROSE 5% 100 ML IV SCH ×4 (05:30→23:53)
[2018-08-19] MEDS: KETOROLAC TROMETHAMINE 15 MG/ML VIAL IV SCH ×4 (05:31→23:53)
[2018-08-19] MEDS: NSS + 20MEQ KCL 20 MEQ/1,000 ML BAG IV SCH ×4 (05:44→23:52)
[2018-08-19 06:53] LABS: Creatinine Clr Calc Pharmacy 297.3 ml/min; Est GFR (African American) > 150.0; Est GFR (Non-African American) 138.8
[2018-08-19] MEDS: PANTOprazole 40 MG TAB PO SCH (08:51)
--- NOTE | 2018-08-19 12:47 | Surgery Progress Note ---
Date of Service August 19, 2018 Assessment & Plan (1) S/P laparoscopic-assisted sigmoidectomy: Postoperative day #10 Doing well Advance to soft diet Encouraged ambulation Subjective EARNESTINE with 45 cc EARNESTINE with 45 cc out yesterday and 15 cc out last shift all se rosanguineous Postoperative day #10 Has had 2 bowel movements Denies abdominal pain No melena or hematochezia Tolerated full liquid diet without nausea and vomiting Physical Exam Gastrointestinal (Abdomen): Inspection/Auscultation: + abdominal surgical incision (Clean, dry and intact) Percussion/Palpation: + abdomen tender (Incisional only) and abdomen soft Results & Data Vital Signs (Past 12 Hours) Vital Signs Temp Pulse Resp BP Pulse Ox 08/19/18 07:41 36.6 C 70 16 112/69 95
[2018-08-19] MEDS: SODIUM CHLORIDE 0.9% 1000ML 1,000 ML IV SCH (14:27)
[2018-08-19 23:26] VITALS: O2SAT 96
[2018-08-20] MEDS: ACETAMINOPHEN 65 ML IV SCH (03:34)
[2018-08-20] MEDS: KETOROLAC TROMETHAMINE 15 MG/ML VIAL IV SCH ×2 (05:36→12:25)
[2018-08-20] MEDS: HEPARIN SOD 5,000 UNIT/0.5 ML VIAL SQ SCH ×2 (05:36→12:25)
[2018-08-20] MEDS: IMIPENEM/CILASTATIN SODIUM 500 MG in DEXTROSE 5% 100 ML IV SCH ×2 (05:36→12:24)
[2018-08-20 06:52] LABS: Creatinine Clr Calc Pharmacy 217.3 ml/min; Est GFR (African American) 141.4
[2018-08-20] MEDS ORDERED: OXYCODONE/ACETAMINOPHEN 5mg/325mg TAB PO PRN (08:31)
--- NOTE | 2018-08-20 08:32 | Surgery Progress Note ---
Date of Service August 20, 2018 Assessment & Plan (1) S/P laparoscopic-assisted sigmoidectomy: POD 5 po analgesics will remove drain ok for d/c on po abx Subjective low fiber diet, having BMs Physical Exam Gastrointestinal (Abdomen): Inspection/Auscultation: + abdominal surgical incision (no erythema) and + abdominal surgical drain present (10 cc); abdomen not distended Percussion/Palpation: abdomen soft Results & Data Vital Signs (Past 12 Hours) Vital Signs Temp Pulse Pulse Resp BP Pulse Ox 08/20/18 07:02 36.5 C 54 L 15 136/74 96 08/19/18 23:25 36.6 C 58 L 14 117/68 96
[2018-08-20] MEDS: PANTOprazole 40 MG TAB PO SCH (09:00)
[2018-08-20] MEDS: NSS + 20MEQ KCL 20 MEQ/1,000 ML BAG IV SCH (09:02)
[2018-08-20 14:58] VITALS: BP 127/68; TEMP 98.1
--- NOTE | 2018-08-20 15:32 | Hospitalist Progress Note ---
Date of Service August 20, 2018 Assessment & Plan (1) Perforation of sigmoid colon due to diverticulitis: S/P laparoscopic-assisted sigmoidectomy stable overall tolerating soft diet cleared for d/c by General Surgery complete additional 1 week course of Cipro 500mg BID and Flagyl 500mg TID ff up with Gen Surg next week for staple removal soft diet x 6-8 weeks Will need outpatient colonoscopy and follow up with GI to discuss stress induced mixed hyperbilirubinemia ELEVATED INDIRECT BILIRUBIN Review of records showed patient has history of increased indirect bilirubin up to 3 during admission for diverticulitis in 2017 CT abdomen and pelvis showing no biliary obstruction Tot Marcin further increased to 4.6 Alk phos normalized, AST/ALT within normal limits monitor-LFTs remains unremarkable likely Gilbert syndrome as per GI GOUT Patient a few days ago experienced swelling of the right ankle He was placed on indomethacin 50 mg 3 times daily with improvement of symptom- hold while admitted in light of diverticulitis with perforation Allopurinol ordered 100 mg twice daily-continue while admitted No acute symptoms of gout HISTORY OF GERD Provide Protonix IV daily DVT prophylaxis SCDs Disposition d/c home today ff up with PCP 1 week ff up with Gen Surg 1 week Subjective ff up for s/p lap surgery seen resting in bed, comfortable states he feels fine overall denies active pain on the surgical site tolerated soft diet well no other symptoms states he is ready and would like to be discharged today Review of Systems Review of Systems: All systems reviewed & are unremarkable except as noted in HPI & below Physical Exam Physical Exam: General- oriented x 3, not in distress, speaks in sentences with no effort or accessory muscle use Eyes- anicteric Neck- no JVD Lungs- clear BS bilaterally no rales/wheezing Heart- normal rate, regular rhythm; no murmurs Abdomen- normal bowel sounds, nondistended, soft, nontender (+) surgical incision sites: healing well, no discharge/bleeding, cooper intact Extremities- no pretibial edema, no calf tenderness Neuro- alert, oriented x 3; no gross focal neurologic deficits Skin- warm & dry Results & Data Vital Signs (Past 12 Hours) Vital Signs Temp Pulse Resp BP Pulse Ox 08/20/18 14:57 36.7 C 70 18 127/68 96 08/20/18 07:02 36.5 C 54 L 15 136/74 96 Laboratory Results Laboratory Results - last 24 hr 08/20/18 05:33 Creatinine 0.78 Est Cr Clr Drug Dosing 217.3 Est GFR ( Amer) 141.4 Est GFR (Non-Af Amer) 122.0
[2018-08-20 15:41] VITALS: PULSE 58
--- NOTE | 2018-08-25 18:22 | Discharge Summary ---
Date of Service August 25, 2018 Admission HPI Per Admitting Provider 37-year-old male with history of diverticulitis, gout, GERD Presenting with severe lower abdominal pain starting this morning. Patient reports that for the past couple of weeks, he has been having intermittent lower abdominal pain, sharp, associated with diarrhea. This morning he developed severe lower abdominal pain associated with diarrhea with streaks of blood. Persistence of abdominal pain prompted consult to the ER. At the ER, patient is hemodynamically stable. CAT scan of the abdomen showed severe acute sigmoid diverticulitis with small amount of intraperitoneal air to indicate perforation. Patient was given Cipro and Flagyl IV. Exam, the patient is not in distress, no nausea. Reports abdominal pain is about 3 out of 10 being given morphine. No other active symptoms Admission Exam Per Admitting Provider Vital Signs (Past 24 Hours): Last Vital Signs Temp 36.9 C 08/11/18 14:59 Pulse 95 H 08/11/18 18:39 Resp 20 08/11/18 18:39 BP 139/72 08/11/18 18:39 Pulse Ox 99 08/11/18 18:39 Physical Exam: General- oriented x 3, not in distress, speaks in sentences with no effort or accessory muscle use Head- atraumatic Eyes- PERRL, EOMI, anicteric ENT- oropharynx clear Neck- supple, no JVD, no adenopathy, no thyromegaly; carotids +2/2, no bruits appreciated Lungs- clear to auscultation bilaterally, no rales/wheezes Heart- normal rate, regular rhythm; no murmur, no gallop, no rub appreciated Abdomen- normal bowel sounds, nondistended, soft, positive mild tenderness to the left lower quadrant and suprapubic area. No Coronel sign Extremities- no pretibial edema, no calf tenderness; peripheral pulses intact Right ankle essentially normal Neuro- alert, oriented x 3; CN 2-12 grossly intact; motor 5/5 bilaterally;sensation 100% on all extremities; no other gross focal neurologic deficits Skin- warm & dry Principal Diagnosis Perforation of sigmoid colon due to diverticulitis: S/P laparoscopic-assisted sigmoidectomy Discharge Exam General- oriented x 3, not in distress, speaks in sentences with no effort or accessory muscle use Eyes- anicteric Neck- no JVD Lungs- clear BS bilaterally no rales/wheezing Heart- normal rate, regular rhythm; no murmurs Abdomen- normal bowel sounds, nondistended, soft, nontender (+) surgical incision sites: healing well, no discharge/bleeding, cooper intact Extremities- no pretibial edema, no calf tenderness Neuro- alert, oriented x 3; no gross focal neurologic deficits Skin- warm & dry Discharge Data Allergies Allergy/AdvReac Type Severity Reaction Status Date / Time amoxicillin Allergy Unknown unknown Verified 08/11/18 15:52 Cephalosporins Allergy Unknown unknown Verified 08/11/18 15:52 Consultations 08/11/18 18:00 ED Decision to Admit Stat 08/11/18 18:29 Consult General Surgery Stat 08/11/18 19:23 Consult General Surgery Routine 08/11/18 20:35 Consult Gastroenterology Routine 08/12/18 21:59 Consult Infectious Diseases Routine Procedures Performed Operation Date: 08/15/18 10:10 Actual Procedures p Laparoscopic Assisted Sigmoidectomy, Laparoscopic Stabilization of Sigmoid Colon, (Not Applicable) - Aman Leigh DO, FACS s Incidental Appendectomy(Not Applicable) - Aman Leigh DO, FACS Ordered Studies 08/11/18 16:01 CT abd pelvis IV con only Stat FINDINGS: Lung bases: The heart is normal in size and without pericardial effusion. The lung bases are clear. Liver: The contrast-enhanced liver is normal in size, contour, and attenuation. There is no intrahepatic biliary ductal dilatation. The hepatic veins and portal veins are patent. Gallbladder: Unremarkable. Spleen: The spleen is enlarged, measuring 16.7 cm in length. Pancreas: Unremarkable. Adrenal glands: Unremarkable. Kidneys: The contrast enhanced kidneys are normal in size and without hydrone phrosis. The kidneys enhance symmetrically. Abdominal vasculature: The abdominal aorta is normal in course and caliber. Bowel: There is mild sigmoid diverticulosis. There is wall thickening involving the sigmoid colon with surrounding inflammation and trace fluid. The appearance is consistent with acute diverticulitis. Small foci of intraperitoneal free air are seen adjacent to the sigmoid colon on image #[id number]. No organized fluid collection is seen to suggest abscess. No bowel obstruction is identified. The appendix is well-visualized and normal. Peritoneum: As noted above, there are small foci of intraperitoneal free air adjacent the sigmoid colon. Trace fluid is noted in the right paracolic gutter. There is a fat-containing umbilical hernia. Lymphadenopathy: None. Pelvic viscera: The bladder, prostate, and seminal vesicles are normal as imaged. Skeletal structures: No lytic or blastic lesions are seen. IMPRESSION: 1. There is mild sigmoid diverticulosis with evidence of severe acute sigmoid diverticulitis. 2. Small foci of intraperitoneal free air are seen adjacent to the sigmoid colon and indicate perforation. 3. No organized fluid collection is seen to suggest abscess. 4. Splenomegaly. 5. Additional findings as above. 08/12/18 18:25 CT abd pelvis wo con Stat 08/15/18 02:34 CT abd pelvis IV con only Urgent Hospital Course (1) Perforation of sigmoid colon due to diverticulitis: S/P laparoscopic-assisted sigmoidectomy patient did not improve with IV antibiotics General Surgery consulted: S/P laparoscopic-assisted sigmoidectomy improved gradually diet advanced slowly cleared for d/c by General Surgery ID consulted complete additional 1 week course of Cipro 500mg BID and Flagyl 500mg TID ff up with Gen Surg next week for staple removal soft diet x 6-8 weeks Will need outpatient colonoscopy and follow up with GI to discuss stress induced mixed hyperbilirubinemia ELEVATED INDIRECT BILIRUBIN Review of records showed patient has history of increased indirect bilirubin up to 3 during admission for diverticulitis in 2017 CT abdomen and pelvis showing no biliary obstruction Tot Marcin further increased to 4.6 Alk phos normalized, AST/ALT within normal limits monitor-LFTs remains unremarkable likely Gilbert syndrome as per GI monitor LFTs GOUT Patient a few days ago experienced swelling of the right ankle He was placed on indomethacin 50 mg 3 times daily with improvement of symptom- hold while admitted in light of diverticulitis with perforation Allopurinol ordered 100 mg twice daily-continue while admitted No acute symptoms of gout Protonix IV daily Disposition d/c home today ff up with PCP 1 week ff up with Gen Surg 1 week Total Time Total Time Spent Total Time Spent (In Minutes): 40 minutes Discharge Plan Discharge Items Patient Disposition: Home - Self-Care Reason For Visit: DIVERTICULITIS Discharge Diagnosis: diverticulitis, sigmoid colectomy Discharge Goals: Decrease discomfort Activity: Per 'Additional Instructions' section Lifting: No more than 10 pounds Bathing: No limitations Driving/Machine Use: Resume 3 days after discharge Driving/Machine Use Comment: in not taking percocet Non-emergency contact: Surgeon Call non-emergency contact if: you have any medication questions, your pain is not controlled, you have a fever, your temperature is above 101.5 and your wound has increased redness Follow-up/Referrals: Aman Leigh, SHYLA RAVI [Physician] - (Call to make an appt within the next week to have cooper removed) Darwin Mark MD [Primary Care Provider] - 08/29/18 11:05 am Diet: Low Fiber Addtl Provider Instructions: Follow up with General Surgery in 1 week for staple removal. Please call Dr. Leigh' office for an appointment. Follow up with Primary Care Physician as noted above. Continue low fiber diet for 2-4 weeks Stay well hydrated, drink plenty of fluids. Include yogurt in your daily diet while on antibiotics and at least 1 week after completion of antibiotics. Prescriptions: New ciprofloxacin HCl 500 mg tablet 500 mg PO BID 7 Days Qty: 14 RF: 0 metronidazole [Flagyl] 500 mg tablet 500 mg PO TID 7 Days Qty: 21 RF: 0 Continued allopurinol [Zyloprim] 100 mg tablet 100 mg PO BID RF: 0 indomethacin 50 mg capsule 50 mg PO TID RF: 0 omeprazole 20 mg capsule,delayed release(DR/EC) 20 mg PO DAILY RF: 0 ibuprofen [IBU] 600 mg tablet 600 mg PO TID PRN (Reason: Pain) RF: 0 Stand-Alone Forms: [facility] Search Initiatives/Other Patient Handouts: Diet Low Residue Discharge Orders: Discharge Order (Routine); Ordered 08/20/18 Ordered By: Ismael Aguero Admission Data Admit Date/Time: 08/11/18 18:08 Attending Provider: Giovanny Rosa Admit Provider: Giovanny Rosa Primary Care Provider: Darwin Mark Other Providers: Aman Leigh ; Teresita Hernandez ; Bri Berman Service: Medical Other Interventions: Discharge Summary Assessment (RN) Last Done: 08/20/18 15:38 DC Date/Time DO NOT enter until pt leaves facility: 08/20/18 16:06
== END 2018-08-20 16:06 | disposition home or self-care (01) | DRG 331 ==
LOC: ED 14:54 → SUATTDRO 18:08 → 3N 18:08

== ENCOUNTER 2021-03-21 18:48 | Observation (INO) ==
--- NOTE | 2021-03-21 20:33 | Emergency Department Note ---
Impression & Plan COVID-19, Chest pain, Elevated troponin I level, Leukopenia, Thrombocytopenia ED Provider Note NAME: GLORIA DAVILA AGE: 30 SEX: M : 1990 ARRIVES VIA: Walk-In INFORMANT: Patient, ED PROVIDER(S): Marcio Reyes MD Chief Complaint: Palpitations, Covid positive, chest pain HPI: Patient does present with the above symptoms. The patient states that he became symptomatic proximally 2 Saturdays ago and tested positive this past Monday. The patient's fianc also has had similar symptoms I did receive monoclonal antibodies. The patient is unvaccinated for COVID-19. Patient states that today he was changing positions and that he had some palpitations and left-sided chest pain. Nonradiating. Patient states it was brief and subsequently went away. Patient has had fevers but denies chills. He has had decreased p.o. intake, decreased appetite and loss of taste and smell. The patient is had nausea but without vomiting. Patient denies any prior diarrhea. Patient is not had any abdominal pain. No recent surgeries or procedures. The patient has been taking [id number] medications with mild improvement of his symptoms. Patient is a non-smoker but does use smokeless tobacco. Patient denies any alcohol or drug use. Patient denies any prior history of DVT or PE. The patient has no prior history of heart or lung disease. Patient denies any leg swelling or orthopnea. Patient does relate that he is taking amoxicillin for sore tooth. ROS: See HPI for pertinent positives and negatives. A total of 10 systems were reviewed and otherwise negative. Past medical history: See below Surgical history: See below Social history: See below Physical Exam: GENERAL: NAD, wearing a mask, non-toxic. EYE EXAM: Normal conjunctiva. PERRL, no anisocoria and EOM's grossly intact w/o pain. NECK: Supple, no nuchal rigidity, no adenopathy, non-tender. No signs of meningismus. LUNGS: Clear to auscultation. Normal chest wall mechanics. HEART: NSR, no MRG. ABDOMEN: Abdomen soft, non-tender, normo-active bowel sounds, no masses, no rebound or guarding. BACK: No CVA TTP. SKIN: No rashes and no bruising. UPPER EXTREMITIES: Upper extremities are grossly normal. LOWER EXTREMITIES: Grossly normal, no edema. Negative Homans' sign bilaterally. NEURO EXAM: A&O x3, cranial nerves II-XII grossly intact, normal speech, moves all 4 extremities on command w/o issue. Differential diagnoses: Cardiac ischemia, aortic dissection, pulmonary embolism, pneumothorax, pneumonia, pericarditis, myocarditis, esophageal rupture, GERD, cholecystitis, pancreatitis, musculoskeletal, as well as other pathologies. Course: Patient was seen and evaluated the bedside. Full history physical exam was per formed. EKG interpreted by me Motion artifact noted sinus, rate of 90, normal intervals, normal axis, no obvious ST changes in the anterior or lateral leads. Imaging Studies: CT angiography of the chest No PE or dissection. Cardiac monitoring: An order was placed for continuous cardiac monitoring. The monitor shows a rate of 88 with sinus rhythm. MDM: Patient did present due to concern for chest pains and recent Covid illness. The patient is 8 days since his initial symptom onset and the patient would qualify for monoclonal's given the patient's BMI and unvaccinated status within 10 days of symptom onset. I did discuss that this was EUA and the patient was given the fact she. The patient gave verbal consent for monoclonal antibody treatment. Patient did have blood work completed along with a chest x-ray troponin EKG. Patient CBC did show leukopenia and thrombocytopenia. Kidney function is unremarkable. I was told the patient did have a detectable troponin given the patient's Covid illness and chest pain I did order CT angiography of the chest. I did call the patient the patient stated that he was feeling well we did go over the findings and the discussion that the patient would benefit from inpatient treatment at this time. The patient is amenable to this. I did speak w ith the on-call hospitalist Dr. Rm pending the CT angiography. The patient does not have an oxygen requirement. The patient has no active chest pain at this time. CT angiography does not show any evidence of PE. Past Med/Surg History Medical History Diverticulitis GERD (gastroesophageal reflux disease) Migraine Surgical History S/P laparoscopic-assisted sigmoidectomy Family History Other No significant family history Social History Smoking Status: Never smoker Second Hand Exposure: No; Hx Alcohol Use: Yes Alcohol type: beer Hx Substance Use: No Preferred Language: Romanian Communication Ability: Effective Animal Caretaker Supervisor Required: No Beliefs That Will Affect Care: None Current Living Situation: Alone current occupational status: employed Feels Safe at Home: Yes Assistive Devices: None Allergies Allergies Allergy/AdvReac Type Severity Reaction Status Date / Time Cephalosporins Allergy Unknown unknown Verified 03/21/21 21:29 Home Meds Home Medications Medication Instructions Recorded Confirmed omeprazole 20 mg capsule,delayed 20 mg PO QAM 08/11/18 03/21/21 release allopurinol 100 mg tablet 300 mg PO QAM 06/02/19 03/21/21 Results & Data (ED) Vital Signs Vital Signs - 24 hr 03/21/21 19:31 03/21/21 21:01 03/21/21 21:36 Temperature 37.7 C H Temperature Source Temporal Artery Scan Pulse Rate 92 H 78 Pulse Rate [Right Finger] Pulse Rhythm Pulse Rhythm [Right Finger] Pulse Strength [Right Finger] Respiratory Rate 18 19 Respiratory Effort / Characteristics Respiratory Depth Respiratory Pattern Blood Pressure 127/78 Blood Pressure [Left Arm] Blood Pressure Mean 94 Blood Pressure Mean [Left Arm] Blood Pressure Position Sitting Blood Pressure Position [Left Arm] Pulse Oximetry 96 96 93 Oxygen Delivery Method Room Air Room Air Room Air Sepsis Recent Fever Within 48 Hours Yes Sepsis New/Unexplained Change in Mental Status N/A Sepsis Action Taken by Nursing No Action Required 03/21/21 21:40 03/21/21 21:41 03/21/21 21:50 Temperature Temperature Source Pulse Rate 85 82 81 Pulse Rate [Right Finger] 95 H Pulse Rhythm Regular Pulse Rhythm [Right Finger] Regular Pulse Strength [Right Finger] Normal Respiratory Rate 18 20 15 Respiratory Effort / Characteristics Non-Labored Respiratory Depth Normal Respiratory Pattern Regular Blood Pressure Blood Pressure [Left Arm] Blood Pressure Mean Blood Pressure Mean [Left Arm] Blood Pressure Position Blood Pressure Position [Left Arm] Pulse Oximetry 96 96 95 Oxygen Delivery Method Room Air Room Air Room Air Sepsis Recent Fever Within 48 Hours Sepsis New/Unexplained Change in Mental Status Sepsis Action Taken by Nursing 03/21/21 21:58 03/21/21 22:00 03/21/21 22:08 Temperature 36.9 C 37.1 C Temperature Source Oral Oral Pulse Rate 82 Pulse Rate [Right Finger] 80 82 Pulse Rhythm Pulse Rhythm [Right Finger] Regular Regular Pulse Strength [Right Finger] Normal Normal Respiratory Rate 20 16 21 Respiratory Effort / Characteristics Non-Labored Non-Labored Respiratory Depth Normal Normal Respiratory Pattern Regular Regular Blood Pressure 142/51 H Blood Pressure [Left Arm] 142/51 H 156/88 H Blood Pressure Mean 81 Blood Pressure Mean [Left Arm] 81 110 Blood Pressure Position Blood Pressure Position [Left Arm] Lying Sitting Pulse Oximetry 95 95 96 Oxygen Delivery Method Room Air Room Air Room Air Sepsis Recent Fever Within 48 Hours Sepsis New/Unexplained Change in Mental Status Sepsis Action Taken by Nursing 03/21/21 22:10 03/21/21 22:18 03/21/21 22:21 Temperature 36.8 C Temperature Source Oral Pulse Rate 80 80 Pulse Rate [Right Finger] 85 Pulse Rhythm Pulse Rhythm [Right Finger] Regular Pulse Strength [Right Finger] Normal Respiratory Rate 14 20 18 Respiratory Effort / Characteristics Non-Labored Respiratory Depth Normal Respiratory Pattern Regular Blood Pressure Blood Pressure [Left Arm] 133/85 Blood Pressure Mean Blood Pressure Mean [Left Arm] 101 Blood Pressure Position Blood Pressure Position [Left Arm] Lying Pulse Oximetry 95 96 95 Oxygen Delivery Method Room Air Sepsis Recent Fever Within 48 Hours Sepsis New/Unexplained Change in Mental Status Sepsis Action Taken by Nursing 03/21/21 22:30 03/21/21 22:40 03/21/21 23:06 Temperature Temperature Source Pulse Rate 80 82 85 Pulse Rate [Right Finger] Pulse Rhythm Pulse Rhythm [Right Finger] Pulse Strength [Right Finger] Respiratory Rate 16 20 19 Respiratory Effort / Characteristics Respiratory Depth Respiratory Pattern Blood Pressure 147/87 H Blood Pressure [Left Arm] Blood Pressure Mean 107 Blood Pressure Mean [Left Arm] Blood Pressure Position Blood Pressure Position [Left Arm] Pulse Oximetry 95 97 94 Oxygen Delivery Method Sepsis Recent Fever Within 48 Hours Sepsis New/Unexplained Change in Mental Status Sepsis Action Taken by Nursing 03/21/21 23:10 03/21/21 23:20 03/21/21 23:30 Temperature Temperature Source Pulse Rate 81 83 85 Pulse Rate [Right Finger] Pulse Rhythm Pulse Rhythm [Right Finger] Pulse Strength [Right Finger] Respiratory Rate 16 21 21 Respiratory Effort / Characteristics Respiratory Depth Respiratory Pattern Blood Pressure 155/87 H Blood Pressure [Left Arm] Blood Pressure Mean 109 Blood Pressure Mean [Left Arm] Blood Pressure Position Blood Pressure Position [Left Arm] Pulse Oximetry 96 95 94 Oxygen Delivery Method Sepsis Recent Fever Within 48 Hours Sepsis New/Unexplained Change in Mental Status Sepsis Action Taken by Nursing 03/21/21 23:40 Temperature Temperature Source Pulse Rate 80 Pulse Rate [Right Finger] Pulse Rhythm Pulse Rhythm [Right Finger] Pulse Strength [Right Finger] Respiratory Rate 15 Respiratory Effort / Characteristics Respiratory Depth Respiratory Pattern Blood Pressure Blood Pressure [Left Arm] Blood Pressure Mean Blood Pressure Mean [Left Arm] Blood Pressure Position Blood Pressure Position [Left Arm] Pulse Oximetry 94 Oxygen Delivery Method Sepsis Recent Fever Within 48 Hours Sepsis New/Unexplained Change in Mental Status Sepsis Action Taken by [facility] Medications Current Medication List: was personally reviewed by me Laboratory Data Attestation: I reviewed the patient's lab results. Result diagrams: 03/21/21 21:25 03/21/21 21:25 Lab Results 03/21/21 03/21/21 03/21/21 Range/Units 21:25 21:25 21:25 WBC 2.97 L (4.8-10.8) K/uL RBC 5.53 (4.7-6.1) M/uL Hgb 16.5 (14.0-18.0) g/dL Hct 48.3 (42-52) % MCV 87.3 (80-100) fL MCH 29.8 (25-34) pg MCHC 34.2 (32-36) g/dL RDW Std Deviation 40.4 (36.4-46.3) fL RDW Coeff of Cookie 12.7 (11.5-14.5) % Plt Count 102 L (130-400) K/uL MPV 12.2 H (7.4-10.4) fL Immature Gran % (Auto) 0.0 % Neut % (Auto) 55.2 % Lymph % (Auto) 35.4 % [place] % (Auto) 8.8 % Eos % (Auto) 0.3 % Baso % (Auto) 0.3 % Neut # (Auto) 1.64 (1.4-6.5) K/uL Lymph # (Auto) 1.05 L (1.2-3.4) K/uL [place] # (Auto) 0.26 (0.11-0.59) K/uL Eos # (Auto) 0.01 (0-0.5) K/uL Baso # (Auto) 0.01 (0-0.2) K/uL Immature Gran # (Auto) 0.00 (0.00-0.02) K/uL Platelet Estimate Decreased L (Normal) APTT 29.6 (21.0-31.0) Seconds PTT Ratio 1.1 Sodium 137 (136-145) mmol/L Potassium 4.0 (3.5-5.1) mmol/L Chloride 104 (98-107) mmol/L Carbon Dioxide 26 (21-32) mmol/L Anion Gap 7.0 (3-11) BUN 9 (7-18) mg/dl Creatinine 0.95 (0.6-1.4) mg/dl Est Cr Clr Drug Dosing 178.5 ml/min Est GFR ( Amer) 122.3 ml/min Est GFR (Non-Af Amer) 105.5 ml/min BUN/Creatinine Ratio 9.5 L (10-20) Glucose 87 (70-99) mg/dl Calcium 8.1 L (8.5-10.1) mg/dl Magnesium 1.9 (1.8-2.4) mg/dl Total Bilirubin 1.0 (0.2-1) mg/dl AST 29 (15-37) U/L ALT 36 (12-78) U/L Alkaline Phosphatase 75 (45-117) U/L Troponin I 0.049 H* (0-0.045) ng/ml Total Protein 7.2 (6.4-8.2) gm/dl Albumin 3.3 L (3.4-5.0) gm/dl Globulin 3.9 (2.5-4.0) gm/dl Albumin/Globulin Ratio 0.8 L (0.9-2) Lipase 171 (73-393) U/L Specimen Hemolysis 03/21/21 Range/Units 23:09 WBC (4.8-10.8) K/uL RBC (4.7-6.1) M/uL Hgb (14.0-18.0) g/dL Hct (42-52) % MCV (80-100) fL MCH (25-34) pg MCHC (32-36) g/dL RDW Std Deviation (36.4-46.3) fL RDW Coeff of Cookie (11.5-14.5) % Plt Count (130-400) K/uL MPV (7.4-10.4) fL Immature Gran % (Auto) % Neut % (Auto) % Lymph % (Auto) % [place] % (Auto) % Eos % (Auto) % Baso % (Auto) % Neut # (Auto) (1.4-6.5) K/uL Lymph # (Auto) (1.2-3.4) K/uL [place] # (Auto) (0.11-0.59) K/uL Eos # (Auto) (0-0.5) K/uL Baso # (Auto) (0-0.2) K/uL Immature Gran # (Auto) (0.00-0.02) K/uL Platelet Estimate (Normal) APTT (21.0-31.0) Seconds PTT Ratio Sodium (136-145) mmol/L Potassium (3.5-5.1) mmol/L Chloride (98-107) mmol/L Carbon Dioxide (21-32) mmol/L Anion Gap (3-11) BUN (7-18) mg/dl Creatinine (0.6-1.4) mg/dl Est Cr Clr Drug Dosing ml/min Est GFR ( Amer) ml/min Est GFR (Non-Af Amer) ml/min BUN/Creatinine Ratio (10-20) Glucose (70-99) mg/dl Calcium (8.5-10.1) mg/dl Magnesium (1.8-2.4) mg/dl Total Bilirubin (0.2-1) mg/dl AST (15-37) U/L ALT (12-78) U/L Alkaline Phosphatase (45-117) U/L Troponin I < 0.015 (0-0.045) ng/ml Total Protein (6.4-8.2) gm/dl Albumin (3.4-5.0) gm/dl Globulin (2.5-4.0) gm/dl Albumin/Globulin Ratio (0.9-2) Lipase (73-393) U/L Specimen Hemolysis Administered Medications Discontinued Medications Casirivimab 1,200 mg/ Sodium (Chloride) 110 mls @ 310 mls/hr IV NOW ONE; Protocol Stop: 03/21/21 21:18 Last Infusion: 03/21/21 22:26 Dose: 310 mls/hr Documented by: [id number] Admin: 03/21/21 22:00 Dose: 310 mls/hr Documented by: [id number] Ioversol (Optiray 320 125ml) 120 ml IV ONCE ONE Stop: 03/21/21 23:24 Last Admin: 03/21/21 23:23 Dose: 1 ml Documented by: [id number] Miscellaneous (Stat Iv) 1 ea N/A NOW STA Stop: 03/21/21 20:42 Last Admin: 03/21/21 22:26 Dose: Not Given Documented by: [id number] Ondansetron HCl (Ondansetron Inj 2 Mg/Ml 2 Ml Vial) 4 mg IV NOW STA Stop: 03/21/21 20:42 Last Admin: 03/21/21 21:27 Dose: 4 mg Documented by: [id number] Sodium Chloride (Sodium Chloride 0.9% 10ml Flush) 30 ml IV ONCE ONE Stop: 03/21/21 21:13 Last Admin: 03/21/21 22:26 Dose: 30 ml Documented by: [id number] Discharge Plan Visit Data Chief Complaint: Shortness of Breath/Dyspnea Stated Complaint: COVID POSITIVE,CHEST PAIN,HR ELEVATED,SOB,DIZZY ED Provider: Marcio Reyes Discharge Problem: COVID-19, Chest pain, Elevated troponin I level, Leukopenia, Thrombocytopenia Patient Disposition: Admitted As Inpatient Forms Stand Alone Forms: [facility] Prescriptions Prescriptions: No Action omeprazole 20 mg capsule,delayed release(DR/EC) 20 mg PO QAM RF: 0 allopurinol 100 mg Tablet 300 mg PO QAM RF: 0 Referrals Referrals: Darwin Mark MD [Primary Care Provider] -
[2021-03-21] MEDS ORDERED: diphenhydrAMINE 50 MG/ML VIAL IV PRN (20:41)
[2021-03-21] MEDS ORDERED: ACETAMINOPHEN 325 MG TAB PO PRN (20:41)
[2021-03-21] MEDS ORDERED: ONDANSETRON INJ 2 MG/ML 2 ML VIAL IV STA (20:41)
[2021-03-21] MEDS ORDERED: STAT IV STA (20:41)
[2021-03-21] MEDS ORDERED: ONDANSETRON INJ 2 MG/ML 2 ML VIAL IV PRN (20:41)
[2021-03-21] MEDS ORDERED: EPINEPHrine INJ 1 MG/ML AMP IM PRN (20:41)
[2021-03-21] MEDS ORDERED: methylPREDNISolone 125 MG/2 ML VIAL IV PRN (20:41)
[2021-03-21] MEDS ORDERED: CASIRIVIMAB/IMDEVIMAB 1,200 MG in 0.9 % SODIUM CHLORIDE 100 ML IV ONE (20:57)
[2021-03-21] MEDS ORDERED: SODIUM CHLORIDE 0.9% 10ML FLUSH IV ONE (21:12)
[2021-03-21] MEDS ORDERED: 0.2 MICRON FILTER SET 1 EA IV ONE (21:12)
[2021-03-21 22:03] LABS: Albumin Level 3.3 gm/dl (3.4-5.0); BUN Creatinine Ratio 9.5 (10-20); Calcium 8.1 mg/dl (8.5-10.1); Creatinine Clr Calc Pharmacy 178.5 ml/min; Est GFR (African American) 122.3 ml/min; Est GFR (Non-African American) 105.5 ml/min
[2021-03-21 22:12] LABS: Albumin Globulin Ratio 0.8 (0.9-2); Globulin 3.9 gm/dl (2.5-4.0); Total Protein 7.2 gm/dl (6.4-8.2); Troponin I 0.049 ng/ml (0-0.045)
[2021-03-21 22:15] LABS: Basophils # (auto) 0.01 K/uL (0-0.2); Basophils % (auto) 0.3 %; Eosinophils # (auto) 0.01 K/uL (0-0.5); Eosinophils % (auto) 0.3 %; Hematocrit (blood only) 48.3 % (42-52); Hemoglobin 16.5 g/dL (14.0-18.0); Lymphocytes # (auto) 1.05 K/uL (1.2-3.4); Lymphocytes % (auto) 35.4 %; Mean Corpuscular Hemoglobin 29.8 pg (25-34); Mean Corpuscular Hgb Conc 34.2 g/dL (32-36); Mean Corpuscular Volume 87.3 fL (80-100); Mean Platelet Volume 12.2 fL (7.4-10.4); Monocytes # (auto) 0.26 K/uL (0.11-0.59); Monocytes % (auto) 8.8 %; Neutrophils # (auto) 1.64 K/uL (1.4-6.5); Neutrophils % (auto) 55.2 %; Platelet Count 102 K/uL (130-400); Platelet Estimate Decreased (Normal); RDW Coefficient of Variation 12.7 % (11.5-14.5); RDW Standard Deviation 40.4 fL (36.4-46.3); Red Blood Count 5.53 M/uL (4.7-6.1); White Blood Count 2.97 K/uL (4.8-10.8)
[2021-03-21 23:18] LABS: Magnesium 1.9 mg/dl (1.8-2.4)
[2021-03-21 23:20] LABS: Partial Thromboplastin Ratio 1.1; Partial Thromboplastin Time 29.6 Seconds (21.0-31.0)
[2021-03-21] MEDS ORDERED: OPTIRAY 320 125ml IV ONE (23:23)
--- NOTE | 2021-03-21 23:37 | History & Physical Report ---
Date of Service March 21, 2021 Assessment & Plan (1) Chest pain: Plan: And troponin elevation in the setting of COVID-19 infection Possible myocarditis COVID-19 pneumonia with secondary bacterial infection Dental infection Improving on amoxicillin course Situational hypertension secondary to discomfort Neutropenia, thrombocytopenia possibly secondary to viral illness OBS PCU Follow troponin Check ESR, CRP TTE, cardiology consult Re: Chest pain, troponin elevation DVT prophylaxis. SCDs Re: Thrombocytopenia Full code Text document was generated using [employer] voice recognition software. It may contain grammatical or spelling errors. Kindly contact undersigned for clarification of any documentation item in question. History of Present Illness Chief Complaint: Chest pain, Covid Primary Care Provider: Darwin Mark MD History obtained from patient and records. Medical history significant for gout, migraine. Last confinement July 2018 for complicated diverticulitis status post surgery. Last week, flulike symptoms w junky cough noted without chest pain or shortness of breath. Sick COVID-19 contacts. Patient has not received COVID-19 vaccination. Outpatient COVID-19 test was positive. A few days later, patient found by dentist to have an infected tooth. Amoxicillin prescribed by PCP for dental infection. Cough symptoms and tooth infection improving as per patient. Yesterday, patient noted palpitations and intermittent achy left-sided chest pain, nonpleuritic. Patient consulted ER for evaluation. Monoclonal antibody infusion and Decadron administered at the ER. 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 Allergies Allergy/AdvReac Type Severity Reaction Status Date / Time Cephalosporins Allergy Unknown unknown Verified 03/21/21 21:29 Home Medications Medication Instructions Recorded Confirmed Type omeprazole 20 mg capsule,delayed 20 mg PO QAM 08/11/18 03/21/21 History release allopurinol 100 mg tablet 300 mg PO QAM 06/02/19 03/21/21 History Past Med/Surg History Medical History Diverticulitis GERD (gastroesophageal reflux disease) Migraine Surgical History S/P laparoscopic-assisted sigmoidectomy Family History Other No significant family history Social History Smoking Status: Current some day smoker Second Hand Exposure: No; Hx Alcohol Use: No Hx Substance Use: No Preferred Language: Australian Communication Ability: Effective 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 Required: No Beliefs That Will Affect Care: None Current Living Situation: Significant Other current occupational status: employed Other Information That Helps Us Care for You: No Feels Safe at Home: Yes Safety Concerns: Feels Safe At This Time Assistive Devices: None Review of Systems Review of Systems: As per HPI, all 10 systems reviewed, all other ROS negative Physical Exam Physical Exam: GENERAL: Comfortable, pleasant, morbidly obese, looks older than stated age, no respiratory distress SKIN: Normal color, warm HEENT: [place] palpebral conjunctivae, no ptosis, dry buccal mucosa NECK : Supple, short neck, no tenderness CHEST : CTA, no tenderness HEART : RRR, no obvious murmurs ABDOMEN: Some distention, nontender EXTREMITIES : No LE swelling/tenderness, no other conspicuous deformities noted NEUROLOGIC : Coherent, no facial asymmetry, no other gross focality Results & Data Results & [facility] ([facility]) Vital Signs (Past 12 Hours) Vital Signs Temp Pulse Pulse Resp BP BP Pulse Ox 03/21/21 22:18 36.8 C 85 20 133/85 96 03/21/21 22:08 37.1 C 82 21 156/88 H 96 03/21/21 22:00 82 16 142/51 H 95 03/21/21 21:58 36.9 C 80 20 142/51 H 95 03/21/21 21:50 81 15 95 03/21/21 21:41 82 95 H 20 96 03/21/21 21:40 85 18 96 03/21/21 21:36 78 19 93 03/21/21 21:01 96 03/21/21 19:31 37.7 C H 92 H 18 127/78 96 Laboratory Results Laboratory Results WBC 2.97 K/uL (4.8-10.8) L 03/21/21 21:25 RBC 5.53 M/uL (4.7-6.1) 03/21/21 21:25 Hgb 16.5 g/dL (14.0-18.0) 03/21/21 21:25 Hct 48.3 % (42-52) 03/21/21: MCV 87.3 fL (80-100) 03/21/21: MCH 29.8 pg (25-34) 03/21/21 MCHC 34.2 g/dL (32-36) 03/21/21 RDW Std Deviation 40.4 fL (36.4-46.3) 03/21/21 RDW Coeff of Cookie 12.7 % (11.5-14.5) 03/21/21 Plt Count 102 K/uL (130-400) L 03/21/21 MPV 12.2 fL (7.4-10.4) H 03/21/21 Immature Gran % (Auto) 0.0 % 03/21/21 Neut % (Auto) 55.2 % 03/21/21 Lymph % (Auto) 35.4 % 03/21/21 [place] % (Auto) 8.8 % 03/21/21 Eos % (Auto) 0.3 % 03/21/21 Baso % (Auto) 0.3 % 03/21/21 Neut # (Auto) 1.64 K/uL (1.4-6.5) 03/21/21 Lymph # (Auto) 1.05 K/uL (1.2-3.4) L 03/21/21 [place] # (Auto) 0.26 K/uL (0.11-0.59) 03/21/21 Eos # (Auto) 0.01 K/uL (0-0.5) 03/21/21 Baso # (Auto) 0.01 K/uL (0-0.2) 03/21/21 Immature Gran # (Auto) 0.00 K/uL (0.00-0.02) 03/21/21 Platelet Estimate Decreased (Normal) L 03/21/21 APTT 29.6 Seconds (21.0-31.0) 03/21/21 PTT Ratio 1.1 03/21/21 Sodium 137 mmol/L (136-145) 11/21/21 21:25 Potassium 4.0 mmol/L (3.5-5.1) 03/21/21 21:25 Chloride 104 mmol/L (98-107) 03/21/21 21:25 Carbon Dioxide 26 mmol/L (21-32) 03/21/21 21:25 Anion Gap 7.0 (3-11) 03/21/21 21:25 BUN 9 mg/dl (7-18) 03/21/21 21:25 Creatinine 0.95 mg/dl (0.6-1.4) 03/21/21 21:25 Est Cr Clr Drug Dosing 178.5 ml/min 03/21/21 21:25 Est GFR ( Amer) 122.3 ml/min 03/21/21 21: Est GFR (Non-Af Amer) 105.5 ml/min 03/21/21 21:25 BUN/Creatinine Ratio 9.5 (10-20) L 03/21/21 21: Glucose 87 mg/dl (70-99) 03/21/21: Calcium 8.1 mg/dl (8.5-10.1) L 03/21/21 21:25 Magnesium 1.9 mg/dl (1.8-2.4) 03/21/21 21:25 Total Bilirubin 1.0 mg/dl (0.2-1) 03/21/21 21:25 AST 29 U/L (15-37) 03/21/21 21:25 ALT 36 U/L (12-78) 03/21/21 21:25 Alkaline Phosphatase 75 U/L (45-117) 03/21/21 21:25 Troponin I 0.049 ng/ml (0-0.045) H* 03/21/21 21:25 Total Protein 7.2 gm/dl (6.4-8.2) 03/21/21 21:25 Albumin 3.3 gm/dl (3.4-5.0) L 03/21/21:25 Globulin 3.9 gm/dl (2.5-4.0) 03/21/21 21:25 Albumin/Globulin Ratio 0.8 (0.9-2) L 03/21/21 21: Lipase 171 U/L (73-393) 03/21/21 21:25 Specimen Hemolysis 03/21/21 21:[address] chest initial read: Normal CTAchest examination, without a demonstrated pulmonaryembolismor arterial dissection. Findings most consistent with Covid 19 pneumonia. EKG as per my interpretation rate 90, NSR, normal axis, no ischemia (1) Chest pain Chest pain type: unspecified Qualified Code(s): R07.9 - Chest pain, unspecified
[2021-03-21] MEDS ORDERED: SODIUM CHLORIDE 0.9% 1000ML 1,000 ML IV ONE (23:51)
[2021-03-22] MEDS ORDERED: traMADol HCL 50 MG TABLET PO PRN (01:24)
[2021-03-22] MEDS ORDERED: PROMETHAZINE HCL 12.5 MG in SODIUM CHLORIDE 0.9% 50 ML IV PRN (01:24)
[2021-03-22] MEDS ORDERED: MoRPHine SULFATE 4 MG/ML 1 ML CARP\\VIAL IV PRN (01:24)
[2021-03-22] MEDS ORDERED: ACETAMINOPHEN 325 MG TAB PO PRN (01:24)
[2021-03-22 05:51] LABS: Basophils # (auto) 0.01 K/uL (0-0.2); Basophils % (auto) 0.3 %; Eosinophils # (auto) 0.01 K/uL (0-0.5); Eosinophils % (auto) 0.3 %; Hematocrit (blood only) 48.5 % (42-52); Hemoglobin 16.4 g/dL (14.0-18.0); Lymphocytes # (auto) 1.15 K/uL (1.2-3.4); Lymphocytes % (auto) 31.7 %; Mean Corpuscular Hemoglobin 29.5 pg (25-34); Mean Corpuscular Hgb Conc 33.8 g/dL (32-36); Mean Corpuscular Volume 87.4 fL (80-100); Mean Platelet Volume 11.5 fL (7.4-10.4); Monocytes # (auto) 0.33 K/uL (0.11-0.59); Monocytes % (auto) 9.1 %; Neutrophils # (auto) 2.13 K/uL (1.4-6.5); Neutrophils % (auto) 58.6 %; Platelet Count 100 K/uL (130-400); RDW Coefficient of Variation 12.7 % (11.5-14.5); RDW Standard Deviation 40.8 fL (36.4-46.3); Red Blood Count 5.55 M/uL (4.7-6.1); White Blood Count 3.63 K/uL (4.8-10.8)
[2021-03-22 06:17] LABS: BUN Creatinine Ratio 9.7 (10-20); Calcium 8.3 mg/dl (8.5-10.1); Creatinine Clr Calc Pharmacy 209.4 ml/min; Est GFR (African American) 136.3 ml/min; Est GFR (Non-African American) 117.6 ml/min; Potassium 3.7 mmol/L (3.5-5.1)
[2021-03-22 06:19] LABS: C Reactive Protein 0.87 mg/dl (0-0.29)
--- NOTE | 2021-03-22 08:04 | XRay Report ---
XR chest 1V portable CLINICAL HISTORY: Atypical chest pain. COMPARISON STUDY: Chest radiograph December 05, 2019. FINDINGS: Lung volumes are normal. There is no pneumothorax or pleural effusion. There is mild inters titial thickening and suspected mild bilateral opacities. Cardiomediastinal silhouette is unremarkabl e. IMPRESSION: Interstitial thickening and suspected mild bilateral opacities. The findings raise the p ossibility of an infectious process such as viral pneumonia. ACT 112: Negative or not required by law. Electronically signed by: Yon Mccormack M.D. 03/22/2021 8:03 AM
--- NOTE | 2021-03-22 08:53 | CT Scan Report ---
CT angio chest PE protocol CT DOSE: 907.05 mGy.cm HISTORY: 30 years-old Male with PE, covid w/ +trop. Acute shortness of breath. COVID Positive. TECHNIQUE: Multiple CTA images of the chest were obtained after the intravenous administration of 120 ml Optiray. Coronal and sagittal MIPS were obtained from the axial data set and were submitted for review. All measurements were obtained according to NASCET criteria. A dose lowering technique was u tilized adhering to the principles of ALARA. COMPARISON: Chest radiograph of same day FINDINGS: CTA: Suboptimal opacification of the pulmonary arterial tree secondary to contrast bolus timing. The segme ntal and subsegmental pulmonary arterial branches are not well opacified. No filling defects identifi ed to suggest thromboembolic disease. Normal thoracic aorta.Heart size is normal. CT CHEST: No thyroid nodule. Mild mediastinal and hilar adenopathy with hilar lymph nodes measuring up to 1.2 c m. No pneumothorax or pleural effusion. Patchy multisegmental multilobar bilateral groundglass opacit ies are noted, several which are present with a subpleural distribution. The central airways are parmar nt. The spleen is enlarged measuring up to 16.7 cm. Hepatic steatosis. Unremarkable soft tissues. There i s no acute fracture. IMPRESSION: 1. No pulmonary emboli. 2. Patchy multisegmental bilateral groundglass opacities are suggestive of viral pneumonia. 3. Mild likely reactive mediastinal and hilar adenopathy. 4. Hepatic steatosis. 5. Mild splenomegaly. ACT 112: Negative or not required by law. The above report was generated using voice recognition software. It may contain grammatical, syntax o r spelling errors. Electronically signed by: Silvino Ascencio M.D. 03/22/2021 8:52 AM
[2021-03-22] MEDS ORDERED: allopurinoL 300 MG TAB PO SCH (09:00)
[2021-03-22] MEDS ORDERED: PANTOprazole 40 MG TAB PO SCH (09:00)
[2021-03-22] MEDS: AMOXICILLIN 500 MG CAP PO SCH ×2 (10:43→15:12)
--- NOTE | 2021-03-22 15:12 | Cardiology Consultation ---
Date of Consultation March 22, 2021 Assessment & Plan (1) Chest pain: (2) COVID-19: (3) Abnormal echocardiogram: 2D echocardiogram shows no wall motion abnormality suggestive of myocarditis. No signs of active ischemia. No cardiac source for chest discomfort found. Believe is most likely musculoskeletal in nature given his ongoing coughing. Of more concern, a lesion was visualized on the tricuspid valve with a differential diagnosis including endocarditis versus shadow. We will draw 2 sets of blood cultures now. No signs and symptoms of endocarditis and recommend follows up with his PCP as an outpatient to follow-up on the final blood culture results and likely repeat a limited echocardiogram. Unable to perform KRISTA in the setting of active COVID-19 infection I discussed this with the patient at great length and in great detail. He states he understands and will follow up as directed. He should return to the emergency department with any worsening symptoms. History of Present Illness Reason for Consultation: chest pain Requesting Physician: Dr. Waldron Attending Physician: Anatoly Gill MD History of Present Illness Mr. Diana is a pleasant 30-year-old gentleman who presented to [facility] on 03/21/2021 with complaints of chest discomfort. He was recently diagnosed with COVID-19 pneumonia and superimposed bacterial pneumonia. He first had chest discomfort the day before presentation. He described as an achy sensation as if he pulled a muscle on his chest. He has been having a cough for the last several days as well. When the discomfort reoccurred last night he became concerned and came into the emergency department. Initial work- up was unremarkable but cardiology was consulted to rule out COVID-19 myocarditis. Consultation performed through review of medical records and discussion with the patient by phone to limit staff exposure to COVID-19 pneumonia. Allergies Allergy/AdvReac Type Severity Reaction Status Date / Time Cephalosporins Allergy Unknown unknown Verified 03/21/21 21:29 Home Medications Medication Instructions Recorded Confirmed Type omeprazole 20 mg capsule,delayed 20 mg PO QAM 08/11/18 03/21/21 History release allopurinol 100 mg tablet 300 mg PO QAM 06/02/19 03/21/21 History Patient History Medical History Diverticulitis GERD (gastroesophageal reflux disease) Migraine Surgical History S/P laparoscopic-assisted sigmoidectomy Family History Other No significant family history Social History Smoking Status: Current some day smoker Second Hand Exposure: No; Hx Alcohol Use: No Hx Substance Use: No Preferred Language: Hungarian Communication Ability: Effective Performance Analyst Required: No Beliefs That Will Affect Care: None Current Living Situation: Significant Other current occupational status: employed Other Information That Helps Us Care for You: No Feels Safe at Home: Yes Safety Concerns: Feels Safe At This Time Assistive Devices: None Review of Systems Review of Systems: All systems reviewed & are unremarkable except as noted in HPI & below Results & Data ([facility]) Vital Signs (Past 12 Hours) Vital Signs Temp Pulse Resp BP Pulse Ox 03/22/21 08:30 36.7 C 78 20 135/78 93 03/22/21 07:00 37.0 C 81 20 131/77 92 03/22/21 06:03 90 17 128/79 95 03/22/21 04:27 79 20 143/74 H 95 (1) Chest pain Chest pain type: unspecified Qualified Code(s): R07.9 - Chest pain, unspecified
--- NOTE | 2021-03-22 16:15 | Hospitalist Progress Note ---
Date of Service March 22, 2021 Assessment & Plan (1) Chest pain: Plan: COVID 19 infection --CTA:No pulmonary emboli. Patchy multisegmental bilateral groundglass opacities are suggestive of viral pneumonia. Mild likely reactive mediastinal and hilar adenopathy. Hepatic steatosis. Mild splenomegaly. --Test positive as outpatient -Symptoms started about 1 week ago Saturating well on room air Denies dyspnea CRP:0.87 Suspected endocarditis Echo showed possible tricuspid valve lesion present, measuring 1 and 2.7 cm. Blood cultures obtained Appreciate cardiology input Advised to follow-up with PCP for results of blood cultures and seek immediate medical attention if symptoms worsen Advised to follow-up with PCP, cardiology upon discharge Counseled for need of further investigations, antibiotics if blood cultures return positive Atypical chest pain Likely musculoskeletal secondary to cough No wall motion abnormality on echo No ST-T wave changes on EKG Mild troponin bump likely secondary to Covid Appreciate cardiology input Dental infection Improving on amoxicillin course Continue amoxicillin course Situational hypertension secondary to discomfort BP stable now Neutropenia Thrombocytopenia Likely secondary to viral illness Monitor DVT Px: SCDs Re: Thrombocytopenia Code Status Full code Disposition Home Admission and Anticipated Discharge Date Admission Date: March 21, 2021 Subjective Patient is seen and examined at bedside States chest pain has resolved Reports minimal intermittent cough Denies any dyspnea, dizziness, nausea, abdominal pain Had diarrhea yesterday but currently resolved Offers no other complaints Review of Systems Review of Systems: All systems reviewed & are unremarkable except as noted in Subjective Physical Exam Physical Exam: Physical Exam: Vitals signs as noted above General Appearance:Obese, no apparent distress Head: normocephalic, Atraumatic Eyes: normal inspection, EOMI Neck: supple, Trachea midline Respiratory/Chest: Decreased breath sounds, CTA, No accessory muscle use Cardiovascular: S1, S2, No murmur Abdomen/GI:Soft, Non tender, Bowel sounds present Extremities/Musculoskeletal:normal inspection, no edema Neurologic/Psych:AAOX3, grossly no focal neurological deficits Skin: normal color, warm Results & Data Results & [facility] ([facility]) Vital Signs (Past 12 Hours) Vital Signs Temp Pulse Resp BP Pulse Ox 03/22/21 08:30 36.7 C 78 20 135/78 93 03/22/21 07:00 37.0 C 81 20 131/77 92 03/22/21 06:03 90 17 128/79 95 03/22/21 04:27 79 20 143/74 H 95 Laboratory Results Short CBC 03/21/21 03/22/21 Range/Units 21:25 05:25 WBC 2.97 L 3.63 L (4.8-10.8) K/uL Hgb 16.5 16.4 (14.0-18.0) g/dL Hct 48.3 48.5 (42-52) % Plt Count 102 L 100 L (130-400) K/uL BMP 03/21/21 03/22/21 21:25 05:25 Sodium 137 138 Potassium 4.0 3.7 Chloride 104 106 Carbon Dioxide 26 26 BUN 9 8 Creatinine 0.95 0.81 Glucose 87 96 Calcium 8.1 L 8.3 L Cardiac Enzymes 03/21/21 03/21/21 Range/Units 21:25 23:09 Troponin I 0.049 H* < 0.015 (0-0.045) ng/ml Liver Function 03/21/21 Range/Units 21:25 Total Bilirubin 1.0 (0.2-1) mg/dl AST 29 (15-37) U/L ALT 36 (12-78) U/L Alkaline Phosphatase 75 (45-117) U/L Albumin 3.3 L (3.4-5.0) gm/dl (1) Chest pain Chest pain type: unspecified Qualified Code(s): R07.9 - Chest pain, unspecified
--- NOTE | 2021-03-22 17:05 | Discharge Summary ---
Date of Service March 22, 2021 Admission HPI Per Admitting Provider History obtained from patient and records. Medical history significant for gout, migraine. Last confinement July 2018 for complicated diverticulitis status post surgery. Last week, flulike symptoms w junky cough noted without chest pain or shortness of breath. Sick COVID-19 contacts. Patient has not received COVID-19 vaccination. Outpatient COVID-19 test was positive. A few days later, patient found by dentist to have an infected tooth. Amoxicillin prescribed by PCP for dental infection. Cough symptoms and tooth infection improving as per patient. Yesterday, patient noted palpitations and intermittent achy left-sided chest pain, nonpleuritic. Patient consulted ER for evaluation. Monoclonal antibody infusion and Decadron administered at the ER. 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 Principal Diagnosis COVID-19 infection Atypical chest pain Suspected endocarditis Discharge Exam Physical Exam Physical Exam: GENERAL: Comfortable, pleasant, morbidly obese, looks older than stated age, no respiratory distress SKIN: Normal color, warm HEENT: [place] palpebral conjunctivae, no ptosis, dry buccal mucosa NECK : Supple, short neck, no tenderness CHEST : CTA, no tenderness HEART : RRR, no obvious murmurs ABDOMEN: Some distention, nontender EXTREMITIES : No LE swelling/tenderness, no other conspicuous deformities noted NEUROLOGIC : Coherent, no facial asymmetry, no other gross focality Discharge Data Allergies Allergy/AdvReac Type Severity Reaction Status Date / Time Cephalosporins Allergy Unknown unknown Verified 03/21/21 21:29 Consultations 03/21/21 22:36 ED Decision to Admit Stat 03/22/21 01:24 Consult Cardiology Routine Ordered Studies 03/21/21 22:18 CT angio chest PE protocol Urgent Hospital Course (1) Chest pain: COVID 19 infection --CTA:No pulmonary emboli. Patchy multisegmental bilateral groundglass opacities are suggestive of viral pneumonia. Mild likely reactive mediastinal and hilar adenopathy. Hepatic steatosis. Mild splenomegaly. --Test positive as outpatient -Symptoms started about 1 week ago Saturating well on room air Denies dyspnea CRP:0.87 Suspected endocarditis Echo showed possible tricuspid valve lesion present, measuring 1 and 2.7 cm. Blood cultures obtained Appreciate cardiology input Advised to follow-up with PCP for results of blood cultures and seek immediate medical attention if symptoms worsen Advised to follow-up with PCP, cardiology upon discharge Counseled for need of further investigations, antibiotics if blood cultures return positive Atypical chest pain Likely musculoskeletal secondary to cough No wall motion abnormality on echo No ST-T wave changes on EKG Mild troponin bump likely secondary to Covid Appreciate cardiology input Dental infection Improving on amoxicillin course Continue amoxicillin course Situational hypertension secondary to discomfort BP stable now Neutropenia Thrombocytopenia Likely secondary to viral illness Monitor DVT Px: SCDs Re: Thrombocytopenia Code Status Full code Disposition Home Total Time Total Time Spent Total Time Spent (In Minutes): 37 minutes Discharge Plan Discharge Items Patient Disposition: Home - Self-Care Reason For Visit: CP, TROP ELEV, COVID Discharge Diagnosis: COVID-19 infection Atypical chest pain Suspected endocarditis Activity: Per Instructions section Exercise/Sports: Wait until after follow-up appointment Non-emergency contact: Primary Care Provider and Screw Machine Repairer Call non-emergency contact if: you have any medication questions, your symptoms worsen, your pain is concerning for you and you have a fever Follow-up/Referrals: Darwin Mark MD [Primary Care Provider] - Diet: Heart Healthy Addtl Attending Provider Instructions: Follow up with your Primary Care physician in 1 week as advised Follow up Your Screw Machine Repairer in 4-6 weeks as advised --Your Blood Cultures are pending at the time of discharge. Follow up with your physician (PCP) for results. If your Blood cultures are positive, you will need further investigation to rule out Endocarditis and follow up with Cardiology. Seek immediate medical attention if your symptoms reoccur or worsen Please take all medications as instructed on discharge list below. Please call if you have any questions or problems. You can reach a [facility] hospitalist on duty at [facility] [address] 24 hours a day by calling [phone] Home Isolation COVID-19 Instructions The following information about Home Isolation is from the CDC Website: https://www.cdc.gov/coronavirus/2019-ncov/hcp/tzbycmeb-pgwtwcx-vnsixz.html Stay home except to get medical care People who are mildly ill with COVID-19 are able to isolate at home during their illness. You should restrict activities outside your home, except for getting medical care. Do not go to work, school, or public areas. Avoid using public transportation, ride-sharing, or taxis. Separate yourself from other people and animals in your home People: As much as possible, you should stay in a specific room and away from other people in your home. Also, you should use a separate bathroom, if available. Animals: You should restrict contact with pets and other animals while you are sick with COVID-19, just like you would around other people. Although there have not been reports of pets or other animals becoming sick with COVID-19, it is still recommended that people sick with COVID-19 limit contact with animals until more information is known about the virus. When possible, have another member of your household care for your animals while you are sick. If you are sick with COVID-19, avoid contact with your pet, including petting, snuggling, being kissed or licked, and sharing food. If you must care for your pet or be around animals while you are sick, wash your hands before and after you interact with pets and wear a face mask. Call ahead before visiting your doctor If you have a medical appointment, call the healthcare provider and tell them that you have or may have COVID-19. This will help the healthcare providers office take steps to keep other people from getting infected or exposed. Wear a face mask You should wear a face mask when you are around other people (e.g., sharing a room or vehicle) or pets and before you enter a healthcare providers office. If you are not able to wear a face mask (for example, because it causes trouble breathing), then people who live with you should not stay in the same room with you, or they should wear a face mask if they enter your room. Cover your coughs and sneezes Cover your mouth and nose with a tissue when you cough or sneeze. Throw used tissues in a lined trash can. Immediately wash your hands with soap and water for at least 20 seconds or, if soap and water are not available, clean your hands with an alcohol-based hand manager customs that contains at least 60% alcohol. Clean your hands often Wash your hands often with soap and water for at least 20 seconds, especially after blowing your nose, coughing, or sneezing; going to the bathroom; and before eating or preparing food. If soap and water are not readily available, use an alcohol-based hand manager customs with at least 60% alcohol, covering all surfaces of your hands and rubbing them together until they feel dry. Soap and water are the best option if hands are visibly dirty. Avoid touching your eyes, nose, and mouth with unwashed hands. Avoid sharing personal household items You should not share dishes, drinking glasses, cups, eating utensils, towels, or bedding with other people or pets in your home. After using these items, they should be washed thoroughly with soap and water. Clean all high-touch surfaces everyday High touch surfaces include counters, tabletops, doorknobs, bathroom fixtures, toilets, phones, keyboards, tablets, and bedside tables. Also, clean any surfaces that may have blood, stool, or body fluids on them. Use a household cleaning spray or wipe, according to the label instructions. Labels contain instructions for safe and effective use of the cleaning product including precautions you should take when applying the product, such as wearing gloves and making sure you have good ventilation during use of the product. Monitor your symptoms Seek prompt medical attention if your illness is worsening (e.g., difficulty breathing).Beforeseeking care, call your healthcare provider and tell them that you have, or are being evaluated for, COVID-19. Put on a face mask before you enter the facility. These steps will help the healthcare providers office to keep other people in the office or waiting room from getting infected or exposed. Ask your healthcare provider to call the local or state health department. Persons who are placed under active monitoring or facilitated self- monitoring should follow instructions provided by their local health department or occupational health professionals, as appropriate. When working with your local health department check their available hours. If you have a medical emergency and need to call 911, notify the dispatch person marisela that you have, or are being evaluated for COVID-19. If possible, put on a face mask before emergency medical services arrive. Discontinuing home isolation Patients with confirmed COVID-19 should remain under home isolation precautions until the risk of secondary transmission to others is thought to be low. The decision to discontinue home isolation precautions should be made on a ftep-xs-elva basis, in consultation with healthcare providers and state and local health departments. Coronavirus disease 2019 (COVID-19) is a virus that causes a respiratory illness. It is caused by a coronavirus called 2019 novel coronavirus (2019- nCoV). There are many types of coronavirus. Coronaviruses are a very common cause of bronchitis. They may sometimes cause lung infection(pneumonia). Symptoms can range from mild to severe respiratory illness. These viruses are also foundin some animals. COVID-19 was first found in people in [facility], in late 2019. In 2020, several cases of COVID-19 have been confirmed in the [place] Public health officials are working to find the source. How the virus spreads is not yet fully known. It may be spread through droplets of fluid that a person coughs or sneezes into the air. It may be spread if you touch a surface with virus on it, such as a handle or object, and then touch your mouth. What are the symptoms of COVID-19? Some people have no symptoms or mild symptoms. Symptoms may appear 2 to 14 days after contact with the virus. Symptoms can include: Fever Coughing Trouble breathing What are possible complications from COVID-19? In many cases, this virus can cause infection (pneumonia) in both lungs. In some cases, this can cause . How is COVID-19 diagnosed? Your healthcare provider will ask about your symptoms. He or she will also ask about your recent travel and contact with sick people. Testing for the virus is only done through the CDC. If yourhealthcare provider thinks you may have COVID- 19, he or she will work with your local health department and the CDC on testing. Follow all instructions from your healthcare provider. COVID-19 is d iagnosed by: Nasal and throat swab. A cotton-tipped swab is wiped inside your nose or throat. This is done to check for viruses in your nasal mucus. Sputum culture. A small sample of mucus coughed from your lungs (sputum) is collected if you have a cough. It is checked for the virus. How is COVID-19 treated? There is currently no medicine to treat the virus. Treatment is done to help your body while it fights the virus. This is known as supportive care. Supportive care may include: Pain medicine. These include acetaminophen and ibuprofen. They are used to help ease pain and reduce fever. Bed rest. This helps your body fight the illness. For severe illness, you may need to stay in the hospital. Care during severe illness may include: IV (intravenous) fluids.These are given through a vein to help keep your body hydrated. Oxygen. Supplemental oxygen or ventilation with a breathing machine (ventilator) may be given. This is done to keep enough oxygen in your body. Are you at risk for COVID-19? If youve been to a place where people have been sick with this virus, you are at risk for infection. You are at risk if you: Recently traveled to an affected area Had contact with a sick person who recently traveled to this area Had contact with a person who was diagnosed with COVID-19 How can COVID-19 be prevented? There is no vaccine yet. The best prevention is to not have contact with the virus. The CDC advises that people should not travel to areas where there are COVID-19 outbreaks right now for any reason that is not urgent. To help prevent spreading the infection, wash your hands often, or use an alcohol-basedhand manager customs. If you are in an area with COVID-19: Wash your hands often. Or use an alcohol-based hand manager customs often. Only touch your eyes, nose, or mouth with clean hands. Dont have contact with people who are sick. Follow local instructions about being in public. For example, you may be told to not use public transport for a period of time. Stay away from markets that have live or animals. Wash your hands after touching any animals. Don't touch animals that may be sick. Dont share eating or drinking tools with sick people. Dont kiss someone who is sick. Clean surfaces often with disinfectant. If you were in an area with COVID-19 in the last 14 days: Call your healthcare provider. He or she can talk with local health staff to see what action may be needed. Follow all instructions from your provider. Take your temperature every morning and evening for at least 14 days. This is to check for fever. Keep a record of the readings. Keep watch for symptoms of the virus. Tell your provider right away if you have symptoms. If you were in an area with COVID-19 and have a fever or other symptoms: Dont panic. Keep in mind that other illnesses can cause similar symptoms. Stay away from work, school, and public places. Limit physical contact with family members. Don't kiss anyone or share eating or drinking utensils. Clean surfaces you touch with disinfectant. This is to help prevent the virus from spreading. Call your healthcare provider. Explain that you have been exposed to COVID-19 and have symptoms. Do this before going to any hospital. Wait for instructions. Keep in mind that healthcare staff may wear protective equipment such as masks, gowns, gloves, and eye protection. You may be put in a separate room. This is to prevent the possible virus from spreading. Tell the healthcare staff about recent travel. This includes local travel on public transport. Staff may need to find other people you have been in contact with. Follow all instructions the healthcare staff give you. If you have been diagnosed with COVID-19 Follow all instructions from your healthcare provider. Dont leave your home, except to get medical care. Call your healthcare providers office before going. They can prepare and give you instructions. This will help prevent the virus from spreading. Dont go to work, school, or public areas. Dont use public transport or taxis. Stay away from other people in your home. Have them wear face masks around you. Dont share household items or food. Wear a face mask if you can. This includes at home or in a medical facility. Cover your face with a tissue when you cough or sneeze. Throw the tissue away. Wash your hands. Wash your hands often. Caregivers should: Follow all instructions from healthcare staff. Wear a face mask and protective clothing as advised. Wash hands often. Keep track of the sick persons symptoms. Clean surfaces, fabrics, and laundry thoroughly. Keep other people away from the sick person. When to call your healthcare provider Call your healthcare provider: If youve recently traveled and have symptoms If you have been diagnosed with COVID-19 and your symptoms are worse To learn more To find out more about COVID-19, visit the CDC website at www.cdc.gov/coronavirus/2019-ncov/index.html. [employer]. [address] [place] [address], [place] [address]. All rights reserved. This information is not intended as a substitute for professional medical care. Always follow your healthcare professional's instructions. This information has been adapted from [employer] Pending Studies at Discharge: Yes Studies:: Blood Cultures Stand-Alone Forms: My [employer], Smoking Cessation Medications and DC Order Prescriptions: Continued omeprazole 20 mg capsule,delayed release(DR/EC) 20 mg PO QAM RF: 0 allopurinol 100 mg Tablet 300 mg PO QAM RF: 0 Discharge Orders: Discharge Order (Routine); Ordered 03/22/21 Ordered By: Anatoly Gill Admission Data Admit Date/Time: 03/21/21 23:46 Attending Provider: Anatoly Gill Admit Provider: Luis Waldron Primary Care Provider: Darwin Mark Other Providers: Luis Waldron ; Aman Dunn ; Conrado Lieberman ; Nikunj Pino ; Sharan Ramirez ; Yoseph Reed ; Jacinto Phan ; Anusha Rosen ; Marsha Ariza ; Lila Preston ; Collin Pena Other Interventions: Discharge Summary Assessment (RN) Last Done: 03/22/21 16:47
--- NOTE | 2021-03-23 06:06 | Electrocardiogram Report ---
Test Reason : Blood Pressure : / mmHG Vent. Rate : 090 BPM Atrial Rate : 090 BPM P-R Int : 156 ms QRS Dur : 086 ms QT Int : 366 ms P-R-T Axes : 080 036 070 degrees QTc Int : 447 ms Poor data quality, interpretation may be adversely affected Normal sinus rhythm Normal ECG When compared with ECG of 15-MAY-2019 12:27, Vent. rate has increased BY 30 BPM Confirmed by Easton Silver ([id number]) on 03/23/2021 6:05:55 AM Referred By: REFERRED SELF Confirmed By:Easton Silver
--- NOTE | 2021-03-24 06:13 | Electrocardiogram Report ---
Test Reason : Blood Pressure : / mmHG Vent. Rate : 076 BPM Atrial Rate : 076 BPM P-R Int : 172 ms QRS Dur : 088 ms QT Int : 370 ms P-R-T Axes : 035 050 044 degrees QTc Int : 416 ms Normal sinus rhythm Normal ECG When compared with ECG of 21-MAR-2021 21:14, No significant change was found Confirmed by Easton Silver ([id number]) on 03/24/2021 6:13:42 AM Referred By: REFERRED SELF Confirmed By:Easton Silver
== END 2021-03-22 17:03 | disposition home or self-care (01) ==
LOC: ED 18:48 → EDINP 18:48 → SUATTDRO 23:46 → EDINP 03-22 03:02